=== PATIENT | male | born 1955 | race Caucasian/White ===

== ENCOUNTER 2022-06-11 13:31 | Emergency (ER) | payer MEDICARE, SELFPAY ==
[2022-06-11 13:37] VITALS: BP 163/83; PULSE 40; RESP 16; TEMP 36.4; O2SAT 94
--- NOTE | 2022-06-11 13:47 | W.ED.GENAD ---
Discharge Plan Disposition Patient Disposition: Home Discharge Details Clinical Impression: Acute exacerbation of chronic low back pain, Radiculopathy Primary Care Provider: Frankie Sheehan ED Provider: Toni Whittington Home Meds and New Rx's Prescriptions: New prednisone 20 mg tablet 40 mg PO DAILY Qty: 8 0RF Continued levothyroxine 25 MCG tablet 25 mcg PO DAILY@0730 Qty: 30 0RF Patient Comments: no longer taking medication 06/11/2022 CT folic acid 1 MG tablet 1 mg PO DAILY Qty: 30 0RF Patient Comments: No longer taking medication 06/11/2022 thiamine mononitrate (vit B1) [Vitamin B-1 (mononitrate)] 100 MG tablet 100 mg PO DAILY Qty: 30 0RF Patient Comments: no longer taking 06/11/2022 CT Discontinued aspirin 325 MG tablet 325 mg PO DAILY Qty: 30 0RF Patient Comments: No longer taking medication 06/11/2022 CT Discharge Instructions Instructions: Low Back Strain (ED) Additional Instructions: At this time CT imaging is negative for any acute fracture or worrisome findings. If there is degenerative changes noted. Due to the radiating pain down your leg we have placed you on a steroid and you may start that tomorrow. Otherwise you may use the provided narcotic medication along with [id number] meds as needed for further pain and discomfort. Please use narcotic for severe discomfort only. Be mindful of any operating vehicles, machinery, or any dangerous equipment. Please follow-up with your primary care provider if not improving in the next week. Referrals: Frankie Sheehan MD [Primary Care Provider] - 1 week (If not improving over the next week) Discharge Data Discharge Date/Time-TO BE ENTERED AT DEPARTURE: 06/11/22 16:09 Medical Decision Making Patient presenting to the emergency department for chief complaint of back pain. Patient states mechanical fall 2 weeks ago in which he aggravated back pain. He states history of chronic back pain with 2 lumbar surgeries in the past. He has been using [id number] acetaminophen and ibuprofen which does help slightly but pain is continuing to worsen. Patient denies any other injury or trauma. LOW risk for ABDOMINAL AORTIC ANEURYSM, CAUDA EQUINA SYNDROME, EPIDURAL MASS LESION, SPINAL STENOSIS, OR HERNIATED DISK CAUSING SEVERE STENOSIS. Physical exam does show tenderness to the left SI joint and lower lumbar bony prominences. We will plan on performing CT imaging to rule out acute fracture secondary to fall. In the meantime we will treat patient's pain with Orofino given that he just took ibuprofen prior to arrival. Reviewed CT imaging and radiologist interpretation which shows no acute fracture. There is degenerative changes of the left SI joint that is noted but again these do not appear acute. Patient given limited supply of Orofino and placed upon prednisone due to radiculopathy. Patient to follow-up with primary care provider if not improving over the next week. After discussion of diagnosis and plan of care patient has no further needs, questions, or concerns and states clear understanding to return to the emergency department for any worsening symptoms. This documentation was generated using [employer] dictation system, please disregard any oddities of phrase or misspellings. Imaging Data Radiologic Study: Attestation: I personally reviewed and interpreted this imaging study as follows: Imaging: CT Scan Radiologist's impression: Exam(s) CT LUMBAR SPINE SI JOINTS WO EXAM: CT LUMBAR SPINE SI JOINTS WO CLINICAL HISTORY: fall left si- joint pain. TECHNIQUE: Imaging Protocol: Axial computed tomography images with coronal and sagittal reformatted images were created and reviewed. COMPARISON: No exams were available for comparison FINDINGS: Bones: No fractures or dislocations are seen. Moderate degenerative changes are seen throughout the lumbar spine. There is moderate central spinal canal stenosis at L3-L4 and L2-L3. There is mild central spinal canal stenosis at L1-L2. There is marked bilateral neural foraminal stenosis at L5-S1 and L4-L5. There are degenerative changes seen at the sacroiliac joints but no widening, ankylosis or erosions are seen. Soft tissues: Atherosclerosis is present. IMPRESSION: 1. No acute fracture or dislocation is identified. 2. Findings were discussed with Toni Moreira Mode of arrival: ambulatory. Date/Time Provider Initiated Documentation: 06/11/22 13:37. Limitations to Documentation: no limitations. Information obtained by: patient, RN notes reviewed and old records reviewed. History of Present Illness 66 year old M presents to the emergency department with the chief complaint of Fall, left-sided back pain, described as moderate and similar to prior episodes, with intensity rated at 7. Quality is described as aching, and is localized to the back. Patient extremity. Patient started experiencing this week(s) (2) and it has been constant. Rest improves symptom(s), Movement worsens symptoms . Patient notes no other symptoms.. Patient did receive the following treatments prior to arrival, NSAID Related Data Home Medications Medication Instructions Recorded Confirmed folic acid 1 mg tablet 1 mg PO DAILY ##30 06/05/13 06/22/13 levothyroxine 25 mcg tablet 25 mcg PO DAILY@0730 ##30 06/05/13 06/22/13 thiamine mononitrate (vit B1) 100 100 mg PO DAILY ##30 06/05/13 06/22/13 mg tablet (Vitamin B-1 (mononitrate)) prednisone 20 mg tablet 40 mg PO DAILY #8 tabs 06/11/22 Previous Rx's Medication Instructions Recorded folic acid 1 mg tablet 1 mg PO DAILY ##30 06/05/13 levothyroxine 25 mcg tablet 25 mcg PO DAILY@0730 ##30 06/05/13 thiamine mononitrate (vit B1) 100 100 mg PO DAILY ##30 06/05/13 mg tablet (Vitamin B-1 (mononitrate)) prednisone 20 mg tablet 40 mg PO DAILY #8 tabs 06/11/22 Allergies Allergy/AdvReac Type Severity Reaction Status Date / Time No Known Allergies Allergy Unverified 06/22/13 11:31 General Stated Complaint: Nk/Back Pain MARCELLE: 4 Review of Systems Constitutional Constitutional: Denies chills and Denies fever(s) Cardiovascular Cardiovascular: Denies chest pain and Denies dyspnea on exertion Respiratory Respiratory: Denies cough and Denies dyspnea on exertion Gastrointestinal Gastrointestinal: Denies abdominal pain, Denies change in bowel habits, Denies diarrhea, Denies nausea and Denies vomiting Genitourinary Genitourinary: Denies difficulty urinating and Denies urinary incontinence Musculoskeletal Musculoskeletal: Reports as per HPI and Reports back pain Neurologic Neurologic: Denies sensory deficit PFSH All Active Problems (Updated 06/11/22 @ 15:26 by Toni Whittington NP) Chronic low back pain (Chronic) Sick sinus syndrome (Acute 06/13/13) Status post placement of cardiac pacemaker (Acute 06/14/13) Acute exacerbation of chronic low back pain (Acute) Radiculopathy (Acute) Social History Smoking/Tobacco Use Status: Former Tobacco Use Smoking risk assessment performed?: Yes Alcohol Intake: current Alcohol Intake frequency: a few times a week Alcohol type: beer Drug use: Never Substance use type: does not use Do you feel safe at home: Yes Do you feel safe in your relationship?: Yes Exam Const General: cooperative and no acute distress Orientation: alert, awake and oriented x3 Neck Neck: normal visual inspection, full ROM and no meningeal signs Resp Effort & Inspection: normal respiratory effort Auscultation: clear to auscultation bilaterally Cardio Rate: regular rate Rhythm: regular rhythm Heart Sounds: S1 normal and S2 normal GI Palpation: no hepatosplenomegaly, no aortic enlargement, no masses and no pulsatile masses Back/Spine/Pelvis Thoracic/Lumbar Spine: pain with thoraco-lumbar ROM, paraspinal tenderness, thoraco-lumbar ROM limited, No thoracic spinal tenderness and lumbar spinal tenderness Pelvis: no pain with anterior-posterior compression, no pain with lateral compression and buttock tenderness on the left Sacroiliac joints: on the left tender to palpation Neuro General: patient alert, patient awake and patient oriented x3 DTR's: Rt Patellar: 2+ and Lt Patellar: 2+ Course Vital Signs Vital signs: Vital Signs Temperature 36.4 C 06/11/22 13:37 Pulse 40 L 06/11/22 13:37 Respiratory Rate 16 06/11/22 13:37 Blood Pressure 163/83 H 06/11/22 13:37 Pulse Oximetry 94 06/11/22 13:37 Temperature 36.4 C 06/11/22 13:37 Temperature Source Oral 06/11/22 13:37 Pulse 40 L 06/11/22 13:37 Respiratory Rate 16 06/11/22 13:37 Respiratory Effort Normal 06/11/22 13:42 Blood Pressure 163/83 H 06/11/22 13:37 Blood Pressure Position Sitting 06/11/22 13:37 Pulse Oximetry 94 06/11/22 13:37 Oxygen Delivery Method Room Air 06/11/22 13:37 Oxygen Flow Rate 0 06/11/22 13:37 Pain Level 8 06/11/22 13:37 PAWSS Have you Been Recently Intoxicated or Drunk Within the Last 30 days?: No Have you Ever Experienced Previous Episodes of Alcohol Withdrawal?: No Have you ever Experienced Withdrawal Seizures?: No Have you ever Experienced Delirium Tremens(DT)s?: No Have you ever undergone Alcohol Rehabilitation Treatment (i.e, inpt ot outpatient treatment programs)?: No Have you ever Experienced Blackouts?: No Have you ever Combined Alcohol with other Downers within the last 90 days?: No Have you ever Combined Alcohol with any other Substance of Abuse during the last 90 days?: No Result: 0
[2022-06-11] MEDS: HYDROcodone 5/Acetaminophen 325 TAB PO (14:10)
--- NOTE | 2022-06-11 14:13 | NUR.NOTE ---
Nursing Note: Pt received Hydrocodone and Acetamonipohen 5 mg tablet PO at 1410, manual entry as computer with MAR scanner not equiped and multiple other mobile computers not recognizing badge; Leatha Noble RN verified dose and order.
--- NOTE | 2022-06-11 14:39 | DI.CT_ITS ---
Exam(s) CT LUMBAR SPINE SI JOINTS WO EXAM: CT LUMBAR SPINE SI JOINTS WO CLINICAL HISTORY: fall left si- joint pain. TECHNIQUE: Imaging Protocol: Axial computed tomography images with coronal and sagittal reformatted images were created and reviewed. COMPARISON: No exams were available for comparison FINDINGS: Bones: No fractures or dislocations are seen. Moderate degenerative changes are seen throughout the l umbar spine. There is moderate central spinal canal stenosis at L3-L4 and L2-L3. There is mild cent ral spinal canal stenosis at L1-L2. There is marked bilateral neural foraminal stenosis at L5-S1 and L4-L5. There are degenerative changes seen at the sacroiliac joints but no widening, ankylosis or ero sions are seen. Soft tissues: Atherosclerosis is present. IMPRESSION: 1. No acute fracture or dislocation is identified. 2. Findings were discussed with Toni Whittington at 3:22 p.m. on 06/11/2022. RADIATION DOSE DELIVERED: 1,223.18mGy.cm Total DLP 1,223.18mGy.cm Total DLP DATA REPOSITORY: All CT scans at this facility are submitted to the National Radiology Data Registry (NRDR) Dose Index Registry (DIR) with the [employer] ([employer]). RADIATION OPTIMIZATION: All CT scans at this facility use at least one of these dose optimization te chniques: automated exposure control; mA and/or kV adjustment per patient size (includes targeted exa ms where dose is matched to clinical indication); or iterative reconstruction.
[2022-06-11] MEDS: predniSONE 20 MG TAB 60 MG PO (15:47)
[2022-06-11 15:54] VITALS: BP 148/86; PULSE 62; RESP 16; TEMP 36.7; O2SAT 95
== END 2022-06-11 16:09 | disposition home or self-care (01) ==
PROVIDERS: Emergency Provider Nurse Practitioner Family; PCP Internal Medicine
DX: M54.59 Other low back pain (principal); M54.10 Radiculopathy, site unspecified
CPT/HCPCS: 99284; 72131; J7512

== ENCOUNTER 2022-06-29 10:12 | Emergency (ER) | payer MEDICARE, SELFPAY ==
[2022-06-29 10:22] VITALS: BP 143/96; PULSE 55; RESP 18; TEMP 36.1; O2SAT 96
--- NOTE | 2022-06-29 10:43 | W.ED.GENAD ---
Discharge Plan Disposition Patient Disposition: Home Discharge Details Clinical Impression: Acute exacerbation of chronic low back pain, Radiculopathy Primary Care Provider: Frankie Sheehan ED Provider: Toni Whittington Home Meds and New Rx's Prescriptions: Discontinued levothyroxine 25 MCG tablet 25 mcg PO DAILY@0730 Qty: 30 0RF Patient Comments: no longer taking medication 06/11/2022 CT folic acid 1 MG tablet 1 mg PO DAILY Qty: 30 0RF Patient Comments: No longer taking medication 06/11/2022 thiamine mononitrate (vit B1) [Vitamin B-1 (mononitrate)] 100 MG tablet 100 mg PO DAILY Qty: 30 0RF Patient Comments: no longer taking 06/11/2022 CT prednisone 20 mg tablet 40 mg PO DAILY Qty: 8 0RF Discharge Instructions Instructions: Back Pain (ED) Additional Instructions: You may continue to take [id number] acetaminophen as needed for pain but do not take more than 3000 mg in a 24-hour period. You have been given a limited supply of narcotics and please take as directed for severe pain. You have been given a steroid shot to also help with your discomfort. We have placed a urgent referral to your primary care provider for reassessment as I feel that there is high likelihood you will need an MRI to further diagnose your back pain. If you develop any new or significant worsening of symptoms feel free to return to the emergency department for reassessment and consideration of emergent MRI. Referrals: Frankie Sheehan MD [Primary Care Provider] - 5 days Medical Decision Making Patient presenting to the emergency department for chief complaint of back pain. Patient was seen by myself 2 weeks ago and given steroids and limited narcotic for similar presentation. Initial incident was a mechanical fall that worsened patient's back pain. Patient does have chronic back pain secondary to workplace injury that happened years ago with need of lumbar surgery. Patient denies any fever chills, bowel or bladder dysfunction, severe weakness to the lower extremities. He does state some worsening radiating pain down left leg. He did state that steroids did slightly help while he was on them but then once he stopped them pain returned. He has not followed up with his primary care provider. Physical exam is very similar to previous visit with lumbar tenderness along with left buttock and left L5 SI joint tenderness. CT imaging was performed at that time with no emergent findings noted. I do feel that patient would benefit from MRI imaging but none is available as patient is presenting to the ED on a weekend. Patient was emergently referred to primary care provider for reassessment and consideration of MRI imaging but patient also informed if not improving or has worsening symptoms he should return to the emergency department for MRI. He was instructed on hours of availability and unless emergent symptoms were present. I do not feel patient is suffering from cauda equina, severe stenosis, aortic aneurysm, or other emergent back pain at this time. Patient given IM Depo-Medrol and limited supply of narcotic to use for severe pain otherwise recommended to continue use acetaminophen at safe dosing levels for age. After discussion of diagnosis and plan of care patient has no further needs, questions, or concerns and states clear understanding to return to the emergency department for any worsening symptoms. This documentation was generated using [employer] system, please disregard any oddities of phrase or misspellings. HPI General Mode of arrival: ambulatory. Date/Time Provider Initiated Documentation: 06/29/22 10:13. Limitations to Documentation: no limitations. Information obtained by: patient, RN notes reviewed and old records reviewed. History of Present Illness 67 year old M presents to the emergency department with the chief complaint of back pain , described as moderate and severe, with intensity rated at 7. Quality is described as sharp, and is localized to the back. Patient extremity (left). Patient started experiencing this month(s) (1) and it has been constant. No relieving factors improve symptom(s), No exacerbating factors reported . Patient notes no other symptoms.. Patient did receive the following treatments prior to arrival, other (Acetaminophen) Related Data Allergies Allergy/AdvReac Type Severity Reaction Status Date / Time No Known Allergies Allergy Unverified 06/22/13 11:31 General Stated Complaint: Nk/Back Pain MARCELLE: 4 Review of Systems Constitutional Constitutional: Denies chills and Denies fever(s) Cardiovascular Cardiovascular: Denies chest pain and Denies dyspnea on exertion Respiratory Respiratory: Denies cough and Denies dyspnea on exertion Gastrointestinal Gastrointestinal: Denies abdominal pain, Denies change in bowel habits, Denies diarrhea, Denies nausea and Denies vomiting Genitourinary Genitourinary: Denies difficulty urinating and Denies urinary incontinence Musculoskeletal Musculoskeletal: Reports as per HPI and Reports back pain Neurologic Neurologic: Denies sensory deficit PFSH All Active Problems (Updated 06/29/22 @ 10:46 by Toni Whittington NP) Chronic low back pain (Chronic) Sick sinus syndrome (Acute 06/13/13) Status post placement of cardiac pacemaker (Acute 06/14/13) Acute exacerbation of chronic low back pain (Acute) Radiculopathy (Acute) Social History Smoking/Tobacco Use Status: Former Tobacco Use Smoking risk assessment performed?: Yes Alcohol Intake: current Alcohol Intake frequency: a few times a week Alcohol type: beer Drug use: Never Substance use type: does not use Do you feel safe at home: Yes Do you feel safe in your relationship?: Yes Exam Const General: cooperative and no acute distress Orientation: alert, awake and oriented x3 Neck Neck: normal visual inspection, full ROM and no meningeal signs Resp Effort & Inspection: normal respiratory effort Auscultation: clear to auscultation bilaterally Cardio Rate: regular rate Rhythm: regular rhythm Back/Spine/Pelvis Thoracic/Lumbar Spine: pain with thoraco-lumbar ROM, paraspinal tenderness, thoraco-lumbar ROM limited, No thoracic spinal tenderness and lumbar spinal tenderness Pelvis: buttock tenderness on the left Sacroiliac joints: on the left tender to palpation Neuro General: patient alert, patient awake and patient oriented x3 Motor: muscle tone normal throughout Sensory Exam: no sensory deficits noted DTR's: Rt Patellar: 2+ and Lt Patellar: 1+ Course Vital Signs Vital signs: Vital Signs Temperature 36.1 C L 06/29/22 10:22 Pulse 55 L 06/29/22 10:22 Respiratory Rate 18 06/29/22 10:22 Blood Pressure 143/96 H 06/29/22 10:22 Pulse Oximetry 96 06/29/22 10:22 Temperature 36.1 C L 06/29/22 10:22 Temperature Source Tympanic 06/29/22 10:22 Pulse 55 L 06/29/22 10:22 Respiratory Rate 18 06/29/22 10:22 Blood Pressure 143/96 H 06/29/22 10:22 Blood Pressure Position Sitting 06/29/22 10:22 Pulse Oximetry 96 06/29/22 10:22 Oxygen Delivery Method Room Air 06/29/22 10:22 Oxygen Flow Rate 0 06/29/22 10:22 Pain Level 7 06/29/22 10:22
[2022-06-29] MEDS: methylPREDNISolone ACETATE 80 MG/ML VIAL IM (10:54)
--- NOTE | 2022-06-29 10:57 | NUR.NOTE ---
Nursing Note: Referral faxed to PCP for reassessment of back pain, needs MRI/this week.
[2022-06-29 11:09] VITALS: BP 139/92; PULSE 55; RESP 18; TEMP 36.6; O2SAT 96
== END 2022-06-29 11:11 | disposition home or self-care (01) ==
PROVIDERS: Emergency Provider Nurse Practitioner Family; PCP Internal Medicine
DX: M54.50 Low back pain, unspecified (principal); G89.29 Other chronic pain; M54.10 Radiculopathy, site unspecified
CPT/HCPCS: 96372; 99284; J1040

== ENCOUNTER 2022-10-11 10:25 | Observation (INO) | payer MEDICARE, SELFPAY ==
[2022-10-11] VITALS (14 sets, daily range): BP systolic 126–164; BP diastolic 65–86; PULSE 44–62; RESP 16–18; TEMP 36.5; O2SAT 82–97
--- NOTE | 2022-10-11 11:48 | W.ED.GENAD ---
Discharge Plan Disposition Patient Disposition: Admit to [facility] Discharge Details Clinical Impression: Severe back pain, Radiculopathy due to lumbar intervertebral disc disorder Admit Date/Time: 10/11/22 13:59 Admit Provider: Rafiq Salmeron Attending Provider: Rafiq Salmeron Primary Care Provider: Frankie Sheehan ED Provider: Toni Whittington Discharge Data Discharge Date/Time-TO BE ENTERED AT DEPARTURE: 10/11/22 15:19 Medical Decision Making Patient presenting to the emergency department for chief complaint of back pain with left buttock pain and pain radiating down left leg. Patient states this is been going on for 2 weeks and he saw primary care provider yesterday that gave him some steroids that are not helping. Patient lives alone and states he is even having a hard time with his ADLs due to only being able to walk a couple steps. Patient does report that his left leg has been giving out but has not fallen. Patient denies any bowel or bladder changes, denies any severe muscle weakness just severe pain radiating down his left leg. Patient is familiar to myself as I have seen him the last 2 times that he has presented with similar presentation for severe back pain. Physical exam is unchanged from previous exam which shows decreased DTRs to the left extremity significant and severe left buttock and SI pain with mild to moderate tenderness to the lumbar spine. Patient denies any recent injury or trauma. Given the imaging was performed last time and showed moderate stenosis and degenerative changes with no change in symptoms reported by patient we will treat patient's pain and discomfort. Patient given 0.5 mg of hydromorphone and observed Reassessed patient and he did state improvement of pain and discomfort with laying but was unable to walk more than 1 step without severe pain or even sit on the side of the bed. We will attempt to try tramadol Robaxin and will give patient Depo-Medrol with hope to ambulate patient and discharge patient with close primary care follow-up and MRI imaging. Again I do not feel this is cauda equina, spinal epidural abscess, or emergent life-threatening severe spinal stenosis. In reassessed patient he did have some improvement of pain but again cannot walk more than 2 steps without severe pain and sensation that his leg may give out. I am concerned for patient being able to perform ADLs at home given that he lives alone and is having severe symptoms. Will discuss case with hospitalist for admission for pain control for irretractable back pain and need of PT and MRI when available given that it is a weekend. Medical Records Medical records reviewed: Yes I reviewed the patient's medical records. Medical records narrative: Moderate degenerative changes are seen throughout the lumbar spine. There is moderate central spinal canal stenosis at L3-L4 and L2-L3. There is mild central spinal canal stenosis at L1-L2. There is marked bilateral neural foraminal stenosis at L5-S1 and L4-L5. There are degenerative changes seen at the sacroiliac joints but no widening, ankylosis or erosions are seen. Soft tissues: Atherosclerosis is present. HPI General Mode of arrival: wheelchair. Date/Time Provider Initiated Documentation: 10/11/22 10:54. Limitations to Documentation: no limitations. Information obtained by: patient and RN notes reviewed. History of Present Illness 67 year old M presents to the emergency department with the chief complaint of Left buttock pain radiating down leg, described as moderate, severe and similar to prior episodes, Quality is described as sharp, and is localized to the back, buttocks and left. Patient extremity. Patient started experiencing this week(s) (2) and it has been constant. Immobilization improves symptom(s), Movement worsens symptoms . Patient notes no other symptoms.. Patient did receive the following treatments prior to arrival, other (Acetaminophen and prescribed steroids) Related Data Home Medications Medication Instructions Recorded Confirmed Unknown [No Known Home Meds] 10/11/22 10/11/22 Allergies Allergy/AdvReac Type Severity Reaction Status Date / Time No Known Allergies Allergy Unverified 10/11/22 10:37 General Stated Complaint: Nk/Back Pain MARCELLE: 3 Review of Systems Constitutional Constitutional: Denies chills and Denies fever(s) Cardiovascular Cardiovascular: Denies chest pain and Denies dyspnea on exertion Respiratory Respiratory: Denies cough and Denies dyspnea on exertion Gastrointestinal Gastrointestinal: Denies abdominal pain, Denies change in bowel habits, Denies diarrhea, Denies nausea and Denies vomiting Genitourinary Genitourinary: Denies difficulty urinating and Denies urinary incontinence Musculoskeletal Musculoskeletal: Reports as per HPI and Reports back pain Neurologic Neurologic: Denies sensory deficit PFSH All Active Problems (Updated 10/11/22 @ 16:00 by Sidra Alonso NP) Discharge planning issues (Acute) Acute exacerbation of chronic low back pain (Acute) Chronic low back pain (Chronic) Sick sinus syndrome (Acute 06/13/13) Status post placement of cardiac pacemaker (Acute 06/14/13) Severe back pain (Acute) Radiculopathy due to lumbar intervertebral disc disorder (Acute) Social History Smoking/Tobacco Use Status: Former Tobacco Use Smoking risk assessment performed?: Yes Alcohol Intake: former Drug use: Never Substance use type: does not use Housing: house Do you feel safe at home: Yes Do you feel safe in your relationship?: Yes Exam Const General: cooperative and no acute distress Nutritional Appearance: obese Orientation: alert, awake and oriented x3 Neck Neck: normal visual inspection, full ROM and no meningeal signs Resp Effort & Inspection: normal respiratory effort Auscultation: clear to auscultation bilaterally Cardio Rate: regular rate Rhythm: regular rhythm Back/Spine/Pelvis Thoracic/Lumbar Spine: pain with thoraco-lumbar ROM, paraspinal tenderness, thoraco-lumbar ROM limited, No thoracic spinal tenderness and lumbar spinal tenderness Pelvis: buttock tenderness on the left Sacroiliac joints: on the left tender to palpation Neuro General: patient alert, patient awake and patient oriented x3 Motor: muscle tone normal throughout Sensory Exam: no sensory deficits noted DTR's: Rt Patellar: 2+ and Lt Patellar: 1+ Course Vital Signs Vital signs: Vital Signs Pulse 58 L 10/11/22 10:32 Respiratory Rate 18 10/11/22 10:32 Blood Pressure 127/79 10/11/22 10:32 Pulse Oximetry 95 10/11/22 10:32 Pulse 58 L 10/11/22 10:32 Respiratory Rate 18 10/11/22 10:32 Respiratory Effort Normal 10/11/22 10:38 Blood Pressure 127/79 10/11/22 10:32 Blood Pressure Position Supine 10/11/22 10:32 Pulse Oximetry 95 10/11/22 10:32 Oxygen Delivery Method Room Air 10/11/22 10:32 Oxygen Flow Rate 0 10/11/22 10:32 Pain Level 8 10/11/22 11:10
[2022-10-11] MEDS: HYDROmorphone 2 MG/ML SYR 0.5 MG IVP (11:51)
[2022-10-11] MEDS: Methocarbamol 500 MG TAB PO (12:34)
[2022-10-11] MEDS: traMADol 50 MG TAB PO (12:34)
[2022-10-11] MEDS: methylPREDNISolone ACETATE 80 MG/ML VIAL IM (13:15)
[2022-10-11 14:27] LABS: Abs Immature Grans 0.05 10^3/uL (0.0-0.06); Absolute Basophil Count 0.05 10^3/uL (0.0-0.2); Absolute Lymphocyte Count 1.29 10^3/uL (1.2-3.4); Absolute Monocyte Count 0.46 10^3/uL (0.1-0.8); Absolute Neutrophil Count 10.79 10^3/uL (1.2-6.7); Basophils % 0.4; HCT 48.2 % (40.0-50.0); HGB 16.2 g/dL (13.5-17.5); Immature Grans % 0.4; Lymphocytes % 10.2; MCH 33.3 pg (27.0-33.0); MCHC 33.6 % (32.0-36.0); MCV 99 fL (80-95); MPV 10.8 fL (8.0-11.0); Monocytes % 3.6; Neutrophils % 85.4; Platelet Count 224 10^3/uL (130-400); RBC 4.86 10^6/uL (4.36-5.78); RDW 12.2 % (11.8-14.1); WBC 12.64 10^3/uL (4.4-10.8)
[2022-10-11 14:46] LABS: ALT 25 U/L (16-63); AST 16 U/L (15-37); Albumin 3.8 g/dL (3.4-5.0); Alkaline Phosphatase 79 U/L (46-116); Anion Gap 5.1 mmol/L (3-11); BUN 26 mg/dL (7-18); Bilirubin, Total 0.4 mg/dL (0.2-1.0); CO2 28.9 mmol/L (21.0-32.0); CREATININE 1.2 mg/dL (0.70-1.30); Calcium 8.9 mg/dL (8.5-10.1); Chloride 105 mmol/L (98-107); Estimated GFR 65.46 (mL/min/1.73m2); Glucose 139 mg/dL (74-106); Potassium 4.4 mmol/L (3.5-5.1); Sodium 139 mmol/L (136-145); Total Protein 7.2 g/dL (6.4-8.2)
--- NOTE | 2022-10-11 15:24 | NUR.NOTE ---
Nursing Note: Multiple attempts at ambulation failed in ED. Pt refused due to pain to standup and bear weight. This nurse was able to get pt to stand only breifly before pain caused pt to get back in bed. On admission to floor, Pt walked comfortably to bathroom and to bed.
--- NOTE | 2022-10-11 15:36 | HPE_ITS ---
Date of service: 10/11/22 Time of Service: 15:37 Assessment and Plan Assessment and plan (1) Acute exacerbation of chronic low back pain: Status: Acute Assessment and plan: placed on high dose steroids in the ED. will continue with a burst continue scheduled apap, toradol, lidocaine patches can use heat or ice. no signs of cord compression syndrome PT evaluation and recommendations (2) Status post placement of cardiac pacemaker: Status: Acute Assessment and plan: bradycardic with no symptoms. (3) Discharge planning issues: Status: Acute Assessment and plan: CODE STATUS discussed and patient without hesitation states he does not want to be resuscitated under any circumstances DVT prophylaxis deferred at this time as he is not bedbound and admitted observation overnight for pain management. Will readdress if discharge is delayed Anticipated discharge to home with no services tomorrow if he remains with controlled pain discussed with DR Salmeron History of Present Illness History of Present Illness Chief Complaint: low back pain Narrative: This is a 67-year-old male patient with longstanding history of low back pain who states he had an injury many years ago and has had back surgeries but was doing okay up until about a year ago when he had a fall and has had bouts of uncontrolled pain intermittently since. He states 2 weeks ago was his latest bout of uncontrolled pain and he attributes it to getting in and out of a vehic le that is low to the ground. 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 He states he has been using acetaminophen and ibuprofen without any improvement in his symptoms so presents here for evaluation. Review of Systems All systems reviewed & are unremarkable except as noted in HPI and below Gastrointestinal Gastrointestinal: Denies diarrhea Comments: reports occasional constipation Genitourinary Genitourinary: Denies urinary frequency, Denies urinary incontinence and Denies urinary urgency Musculoskeletal Musculoskeletal: Reports abnormal gait, Reports back pain and Reports radiating pain into limb (left) Comments: no bowel or bladder incontinence, no saddle anesthesia. Neurologic Neurologic: Reports abnormal gait PFSH All Active Problems (Updated 10/11/22 @ 16:00 by Sidra Alonso NP) Discharge planning issues (Acute) Acute exacerbation of chronic low back pain (Acute) Chronic low back pain (Chronic) Sick sinus syndrome (Acute 06/13/13) Status post placement of cardiac pacemaker (Acute 06/14/13) Severe back pain (Acute) Radiculopathy due to lumbar intervertebral disc disorder (Acute) Social History Smoking/Tobacco Use Status: Former Tobacco Use Smoking risk assessment performed?: Yes Alcohol Intake: former Drug use: Never Substance use type: does not use Housing: house Do you feel safe at home: Yes Do you feel safe in your relationship?: Yes Meds Allergies and Home Medications Allergies Allergy/AdvReac Type Severity Reaction Status Date / Time No Known Allergies Allergy Unverified 10/11/22 10:37 Home Medications Medication Instructions Recorded Confirmed Type Unknown [No Known Home Meds] 10/11/22 10/11/22 History Exam Const General: cooperative Nutritional Appearance: obese Orientation: alert, awake and oriented x3 HENMT Head: normal to inspection, normocephalic and atraumatic Mouth: oral mucosae normal Neck Neck: normal visual inspection and full ROM Chest Chest: normal inspection of the chest Resp Effort & Inspection: normal respiratory effort Cardio Rate: bradycardic GI Inspection: large pannus Palpation: soft Back/Spine/Pelvis Cervical Spine: normal cervical lordosis Thoracic/Lumbar Spine: thoracic and lumbar spine normal to inspection Results Labs 10/11/22 14:00 10/11/22 14:00 Labs: Laboratory Results - last 24 hr 10/11/22 10/11/22 14:00 14:00 WBC 12.64 H RBC 4.86 Hgb 16.2 Hct 48.2 MCV 99 H MCH 33.3 H MCHC 33.6 RDW 12.2 Plt Count 224 MPV 10.8 Immature Gran % 0.4 Neutrophils % 85.4 Lymphocytes % 10.2 Monocytes % 3.6 Eosinophils % 0.0 Basophils % 0.4 Nucleated RBC % 0.0 Absolute Neutrophils 10.79 H Absolute Lymphocytes 1.29 Absolute Monocytes 0.46 Absolute Eosinophils 0.00 Absolute Basophils 0.05 Sodium 139 Potassium 4.4 Chloride 105 Carbon Dioxide 28.9 Anion Gap 5.1 BUN 26 H Creatinine 1.2 Est GFR (CKD-EPI 2020) 65.46 Glucose 139 H Calcium 8.9 Total Bilirubin 0.4 AST 16 ALT 25 Alkaline Phosphatase 79 Total Protein 7.2 Albumin 3.8 Last Vital Signs Pulse 48 L 10/11/22 15:01 Resp 18 10/11/22 10:32 BP 139/73 10/11/22 15:01 Pulse Ox 92 10/11/22 15:01 Time Spent Time spent with Patient: 40-54 minutes Time was spent: preparing to see the patient(eg.review tests), obtaining and/or reviewing separately otained hiistory, ordering medications,tests, procedures, indepentently interpreting results and counseling the patient
[2022-10-11] MEDS: Normal Saline 1,000 ML 100 ML IV (17:42)
[2022-10-11] MEDS: Normal Saline Flush 10 ML SYR IVP (17:44)
[2022-10-11] MEDS: Droperidol 5 MG/2 ML VIAL 1.25 MG IVP (18:23)
[2022-10-11] MEDS: Lidocaine 5% Patch 2 PATCH TP (18:24)
[2022-10-11] MEDS: Cyclobenzaprine 10 MG TAB PO (19:17)
[2022-10-11] MEDS: Acetaminophen 325 MG TAB 650 MG PO (19:17)
[2022-10-12 00:58] VITALS: BP 158/109; PULSE 107; RESP 16; TEMP 36.5; O2SAT 96
[2022-10-12 06:00] VITALS: BP 158/72; PULSE 54; RESP 16; TEMP 36.5; O2SAT 93
[2022-10-12] MEDS: predniSONE 20 MG TAB 40 MG PO (08:20)
[2022-10-12] MEDS: Acetaminophen 325 MG TAB 650 MG PO ×4 (08:20→19:49)
[2022-10-12] MEDS: Cyclobenzaprine 10 MG TAB PO ×3 (08:20→19:49)
--- NOTE | 2022-10-12 09:42 | PDOC.CMIN ---
Date of service: 10/12/22 Time of Service: 09:43 Care Management Initial Assmt Initial Assessment REASON FOR HOSPITALIZATION:: back pain PREVIOUS FUNCTIONAL STATUS/SOCIAL/FAMILY SUPPORTS:: Leander, who goes by Pj, lives alone in a single family home in [place] with his dog. 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 Pj does not have any children and does not receive any community services. he is independent at [employer] and drives about 200 miles per day with his work. CURRENT FUNCTIONAL STATUS:: Pj was sitting up in bed when CM met with him. He was polite but not very talkative. Pj shared that he had first injured his back while working at [employer] about 15-20 years ago and has had several surgeries. His stated that his back pain comes and goes in intensity. A PT consult was ordered yesterday but has not been completed yet. Pj denied the need for any services at this time. ADVANCE DIRECTIVES:: none on file Has patient been provided with info about the portal/API?: No Did the patient sign up for the portal?: No CODE STATUS:: DNR INSURANCE COVERAGE / FINANCIAL ISSUES:: [employer] [facility] Medicare Replacement Plan CURRENT HOME/COMMUNITY SERVICES/EQUIPMENT:: none PRIMARY CARE PHYSICIAN:: Frankie Sheehan POTENTIAL DISCHARGE NEEDS:: follow up with community providers PATIENT/FAMILY EDUCATION NEEDS:: Review of discharge instructions, activity, limitations, follow up plan, discuss [employer] TRANSPORTATION:: via private vehicle PLAN:: Anticipate Leander will be discharged home with no new services. He will follow up with his community providers and plan of care and transport with family/friends. CM will follow and support discharge needs. PFSH All Active Problems (Updated 10/11/22 @ 16:00 by Sidra Alonso NP) Discharge planning issues (Acute) Acute exacerbation of chronic low back pain (Acute) Chronic low back pain (Chronic) Sick sinus syndrome (Acute 06/13/13) Status post placement of cardiac pacemaker (Acute 06/14/13) Severe back pain (Acute) Radiculopathy due to lumbar intervertebral disc disorder (Acute) Social History Smoking/Tobacco Use Status: Former Tobacco Use Smoking risk assessment performed?: Yes Alcohol Intake: former Drug use: Never Substance use type: does not use Housing: house Do you feel safe at home: Yes Do you feel safe in your relationship?: Yes
[2022-10-12 11:16] VITALS: BP 127/78; PULSE 54; RESP 16; TEMP 36.5; O2SAT 94
[2022-10-12 14:48] VITALS: BP 110/61; PULSE 58; RESP 16; TEMP 36.5; O2SAT 92
--- NOTE | 2022-10-12 16:46 | W.PM.PROGNOT ---
Date of Service Date of service: 10/12/22 Time of Service: 16:46 Assessment and Plan Assessment and plan (1) Acute exacerbation of chronic low back pain: Status: Acute Assessment and plan: continue steroid burst continue scheduled apap, toradol, lidocaine patches can use heat or ice. no signs of cord compression syndrome PT evaluation and recommendations (2) Status post placement of cardiac pacemaker: Status: Acute Assessment and plan: bradycardic with no symptoms. (3) Discharge planning issues: Status: Acute Assessment and plan: CODE STATUS discussed and patient without hesitation states he does not want to be resuscitated under any circumstances DVT prophylaxis deferred at this time as he is not bedbound and admitted observation overnight for pain management. Will readdress if discharge is delayed Anticipated discharge to home with no services tomorrow if he remains with controlled pain discussed with DR Salmeron Subjective Subjective Patient reports: no new complaints, pain is less, tolerating liquids well, tolerating a regular diet, voiding w/o difficulty and afebrile; denies shortness of breath Exam Const General: cooperative Nutritional Appearance: obese Orientation: alert, awake and oriented x3 HENMT Head: normal to inspection, normocephalic and atraumatic Mouth: oral mucosae normal Neck Neck: normal visual inspection and full ROM Chest Chest: normal inspection of the chest Resp Effort & Inspection: normal respiratory effort Cardio Rate: bradycardic GI Inspection: large pannus Palpation: soft Back/Spine/Pelvis Cervical Spine: normal cervical lordosis Thoracic/Lumbar Spine: thoracic and lumbar spine normal to inspection Objective Last Vital Signs Temp 36.5 C 10/12/22 14:48 Pulse 58 L 10/12/22 14:48 Resp 16 10/12/22 14:48 BP 110/61 10/12/22 14:48 Pulse Ox 92 10/12/22 14:48 Time Spent with Patient Time Spent with Patient: <25 minutes Time was spent: preparing to see the patient(eg.review tests), obtaining and/or reviewing separately otained hiistory and counseling the patient
[2022-10-12 19:52] VITALS: BP 113/67; PULSE 57; RESP 20; TEMP 36.8; O2SAT 91
[2022-10-12 23:15] VITALS: BP 116/67; PULSE 90; RESP 16; TEMP 36.3; O2SAT 90
[2022-10-13 07:20] VITALS: BP 150/102; PULSE 68; RESP 17; TEMP 36.9; O2SAT 95
[2022-10-13] MEDS: predniSONE 20 MG TAB 40 MG PO (07:58)
[2022-10-13] MEDS: Acetaminophen 325 MG TAB 650 MG PO ×2 (07:58→12:22)
[2022-10-13] MEDS: Cyclobenzaprine 10 MG TAB PO ×2 (07:58→13:03)
[2022-10-13 08:00] VITALS: BP 158/96
--- NOTE | 2022-10-13 09:50 | IN_ITS ---
PT Notes Visit Reasons: Acute Exacerbation of Low Back Pain Physical Therapy Inpatient Initial Evaluation Date: 10/14/2022 Referring Doctor: Sidra Alonso NP PT Orders: PT CONSULT: Eval/Treat Precautions: Fall. Standard. Activity as tolerated. Patient Profile/Admitting Diagnosis: Leander is a 67-year-old male who presented to the ED on 10/11/2022 due to report of left buttock pain radiating to his left leg since he fell 2 weeks ago. Patient is admitted for management of acute exacerbation of chronic low back pain and s/p placement of cardiac pacemaker. PMHX: All Active Problems?(Updated 10/11/22 @ 16:00 by Sidra Alonso NP) Discharge planning issues (Acute) Acute exacerbation of chronic low back pain (Acute) Chronic low back pain (Chronic) Sick sinus syndrome (Acute 06/13/13) Status post placement of cardiac pacemaker (Acute 06/14/13) Severe back pain (Acute) Radiculopathy due to lumbar intervertebral disc disorder (Acute) Social History/Home Situation: Lives alone in a private home with 3 steps to enter. 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 Equipment Owned/DME: None Subjective: Feels much more comfortable and less hurting in the back with use of front wheeled walker. Ready to go home as soon as he is released by hospitalist. Reports no radiation of pain to either lower extremity. Objective: General Observation: Seated on bedside chair. No lines. Mental Status: Alert and oriented as to person, place, time, and purpose. Able to pay attention, focus, and respond appropriately. Pain: 3/10 in low back Vital Signs: Closely monitored by nursing staff ROM: Trunk ROM: WFL Right Upper Extremity: Shoulder Flexion WFL. Shoulder abduction WFL. Elbow flexion WFL. Wrist flexion WFL. Functional opening and closing of hand WFL. Left Upper Extremity: Shoulder Flexion WFL. Shoulder abduction WFL. Elbow flexion WFL. Wrist flexion WFL. Functional opening and closing of hand WFL. Right Lower Extremity: Hip flexion WFL. Hip abduction WFL. Knee flexion WFL. Ankle dorsiflexion WFL. Ankle plantarflexion WFL. Left Lower Extremity: Hip flexion WFL. Hip abduction WFL. Knee flexion WFL. Ankle dorsiflexion WFL. Ankle plantarflexion WFL. Strength: Trunk strength: Flexors 4-/5. Extensors 4-/5. Lateral flexors 4-/5. Rotators 4-/5. Right Upper Extremity: Shoulder flexors 4/5. Shoulder abductors 4/5. Elbow flexors 5/5. Elbow extensors 5/5. 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 Left Upper Extremity: Shoulder flexors 4/5. Shoulder abductors 4/5. Elbow flexors 5/5. Elbow extensors 5/5. 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 Right Lower Extremity: Hip flexors 4/5. Hip abductors 4/5. Knee flexors 5/5. Knee extensors 5/5. Ankle dorsiflexors 4/5. Ankle plantarflexors 4/5. Left Lower Extremity: Hip flexors 4/5. Hip abductors 4/5. Knee flexors 5/5. Knee extensors 5/5. Ankle dorsiflexors 4/5. Ankle plantarflexors 4/5. Bed Mobility/Transfers: Rolling independent Supine to sit independent Sit to supine independent Sit to stand independent with FWW Stand to sit independent with FWW Bed to reclining chair independent with FWW Reclining chair to bed independent with FWW Gait: Instructed patient with level surface ambulation of 600 feet independently with FWW. Sima decreased. Low back pain report of 3-4/1, No radiation either LE. Stairs: Ascended and descended 6 x 4 inch steps and 4 x 6 inch steps without holding onto rails with step over step pattern with report of 3?4/10 pain in the low back area. Balance: Static Sitting: Normal Dynamic Sitting: Normal Static Standing: Good Dynamic Standing: Fair Special Tests: Mobility Limitations Standardized Measure [facility] AM-PAC 6 clicks Basic Mobility Inpatient Short Form: Raw Score: 24 CMS Score: 0% deficit Informed Consent/Education: Patient was instructed in purpose of PT consult and plan of care. Agreeable to proceed with established PT POC to achieve personal goals. MARCO A EX: Access Code: [email or web address] URL: [email or web address] Date: 10/13/2022 Prepared by: Hina Kearns Exercises - Heel Raises with Counter Support - 1 x daily - 7 x weekly - 1 sets - 10 reps - 5 hold - Standing Hip Abduction with Counter Support - 1 x daily - 7 x weekly - 1 sets - 10 reps - 5 hold - Standing Hip Extension with Counter Support - 1 x daily - 7 x weekly - 1 sets - 10 reps - 5 hold Assessment: Patient has effective offloading of low back area with use of front wheeled walker for all mobility ADL performance. Patient has been provided with written exercises that he can safely do until he sees outpatient PT. He has also been provided with front wheeled walker that he can use in the community to safely perform his ADLs. Patient is assessed as a 20981 low complexity based on the following: History: 67-year-old male with past medical history as indicated above Examination: Patient is independent with all mobility ADL performance using front-wheeled walker with back pain effectively managed using AD Presentation: Stable Decision Makin low complexity Goals: N/A. PT evaluation only. Plan of Care/Treatment Plan: N/A. PT evaluation only. DISCHARGE RECOMMENDATIONS: [] Home with no services [] [] Home with services [specify] [X] Home with outpatient PT. Recommend outpatient PT services for continued rehab of low back pain and functional mobility progression to independent without use of any assistive device to allow for safe return to PLOF and to vocational activities. SNF for continued rehabilitation [] [] [facility] [] [] SNF versus LTC based on ability to participate and progress [] TREATMENT CODE/TIME: 61278 x 22 minutes beginning at 9:32 AM. Thank you for the opportunity to participate in the care of this patient. Hina Kearns PT, DPT, CLT [facility] [place], [place]
--- NOTE | 2022-10-13 09:51 | W.PM.DS.N ---
Date of service: 10/13/22 Time of Service: 09:51 DS: Diagnosis Discharge Diagnosis (1) Acute exacerbation of chronic low back pain: Status: Acute (2) Status post placement of cardiac pacemaker: Status: Acute Discharge Plan Disposition Patient Disposition: Home Condition: Improving Discharge Details Reason For Visit: Acute Exacerbation of Low Back Pain Admit Date/Time: 10/11/22 13:59 Admit Provider: Rafiq Horne Attending Provider: Rafiq Horne Primary Care Provider: Frankie Sheehan Hospital Course Hospital Course: This is a 67-year-old male patient with longstanding history of low back pain who states he had an injury many years ago and has had back surgeries but was doing okay up until about a year ago when he had a fall and has had bouts of uncontrolled pain intermittently since.? He states 2 weeks ago was his latest bout of uncontrolled pain and he attributes it to getting in and out of a vehicle that is low to the ground.? 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 He states he has been using acetaminophen and ibuprofen without any improvement in his symptoms so presents here for evaluation. He had no signs of cord compression/cauda equina. He was admitted to the hospitalist services for pain management and PT evaluation. He was safely reambulated with pain managed. bowels and bladder functioning well. PT evaluation completed and deemed safe for discharge to home with no services, outpatient PT referrals sent. He will complete a steroid burst, which was effective during his last exacerbation. He should continue ibuprofen and apap as directed. I also supplied a 10 day supply of flexeril. He should follow up outpatient with spine clinic if symptoms do not continue to improve. discussed with Dr Horne. Home Meds and New Rx's Prescriptions: New acetaminophen 325 mg Tablet 650 mg PO QID Qty: 0 0RF cyclobenzaprine 10 mg Tablet 10 mg PO TID PRN (Reason: Back Pain) Qty: 30 0RF prednisone 20 mg Tablet 40 mg PO DAILY Qty: 8 0RF ibuprofen 600 mg tablet 600 mg PO Q6H PRNQty: 60 0RF Rx Instructions: take with food Discharge Instructions Instructions: Back Pain (ED), Core Strengthening Exercises (DC) Stand Alone Forms: Nursing Discharge Form Referrals: Chanelle Villa [ NON-[facility] STAFF PHYSICIAN] - 10/30/22 10:00 am Marck Montiel, PT [PHYSICAL THERAPIST] - 10/17/22 12:00 pm (outpatient) Activity:: no bending twisting lifti Equipment/Supplies:: No Equipment Needed Diet:: As Tolerated Discharge Orders Discharge Orders: Discharge Order (Routine); Ordered 10/13/22 Ordered By: Sidra Alonso Discharge Data Discharge Date/Time-TO BE ENTERED AT DEPARTURE: 10/13/22 13:27 DS: Summary Time Spent with Patient providing and/or coordinating discharge services: Less than 30 minutes Status at Discharge Functional status at discharge: uses cane/walker Overall status at discharge: patient is progressing back to baseline Mental Status: mental status grossly normal Speech and Movement: speech and movement normal Mood: congruent mood Affect: normal affect Exam Const General: cooperative Nutritional Appearance: obese Orientation: alert, awake and oriented x3 HENMT Head: normal to inspection, normocephalic and atraumatic Mouth: oral mucosae normal Neck Neck: normal visual inspection and full ROM Chest Chest: normal inspection of the chest Resp Effort & Inspection: normal respiratory effort Cardio Rate: bradycardic GI Inspection: large pannus Palpation: soft Back/Spine/Pelvis Cervical Spine: normal cervical lordosis Thoracic/Lumbar Spine: thoracic and lumbar spine normal to inspection Psych Mental Status: mental status grossly normal Speech and Movement: speech and movement normal Mood: congruent mood Affect: normal affect DS: Data Vitals/I&O Vitals and I&O: Vital Signs Temperature 36.9 C 10/13/22 07:20 Temperature Source Tympanic 10/13/22 07:20 Pulse 68 10/13/22 07:20 Pulse Rhythm Regular 10/13/22 08:00 Respiratory Rate 17 10/13/22 07:20 Respiratory Effort Normal, Non-Labored 10/13/22 08:00 Respiratory Depth Normal 10/13/22 08:00 Respiratory Pattern Normal 10/13/22 08:00 Blood Pressure 150/102 H 10/13/22 07:20 Blood Pressure Mean 90 10/11/22 15:01 Blood Pressure Position Supine 10/11/22 10:32 Pulse Oximetry 95 10/13/22 07:20 Oxygen Delivery Method Room Air 10/13/22 07:20 Oxygen Flow Rate 0 10/13/22 07:20 Pain Level 3 10/13/22 08:00 Comment RN Notified 10/12/22 00:58 Intake & Output 0710/12/22 10/13/22 11:59 23:59 11:59 Intake Total 1310 / 1310 Output Total 275 / 275 Balance 1035 / 1035 Weight 118.026 kg 112.4 kg Intake: IV 1010 / 1010 Oral 300 / 300 Output: Urine 275 / 275 Other: Urine Color Yellow Urine Appearance Clear Clear Clear Sediment Sediment Urine Odor Normal Comment voided independently pT staed he was up to bathroom to void about one hour ago Voiding Methods Toilet PFSH All Active Problems (Updated 10/11/22 @ 16:00 by Sidra Alonso NP) Discharge planning issues (Acute) Acute exacerbation of chronic low back pain (Acute) Chronic low back pain (Chronic) Sick sinus syndrome (Acute 06/13/13) Status post placement of cardiac pacemaker (Acute 06/14/13) Severe back pain (Acute) Radiculopathy due to lumbar intervertebral disc disorder (Acute) Social History Smoking/Tobacco Use Status: Former Tobacco Use Smoking risk assessment performed?: Yes Alcohol Intake: former Drug use: Never Substance use type: does not use Housing: house Do you feel safe at home: Yes Do you feel safe in your relationship?: Yes Time Spent with Patient Time Spent with Patient: <45 minutes Time was spent: preparing to see the patient(eg.review tests), obtaining and/or reviewing separately otained hiistory, ordering medications,tests, procedures, referring, communicating with other health healthcare facility administrator and counseling the patient
--- NOTE | 2022-10-13 16:51 | CMDISCH_ITS ---
Date of service: 10/13/22 Time of Service: 16:51 LACE Index Scoring Tool Questions: Length of Stay (in days): 2 E.D. Visits: 2 Care Management Discharge Plan Reason for Hospitalization: back pain Discharge Plan: Leander will be discharged home with no new services. He will follow up with his community providers and plan of care and transport with josi maria m/friends. Patient/Family Education Needs: Review of discharge instructions, activity, limitations, follow up plan, discuss Ask Me Three
== END 2022-10-13 13:27 | disposition home or self-care (01) ==
LOC: ER 14:46 → MS 16:08
PROVIDERS: Admitting Provider Internal Medicine; Emergency Provider Nurse Practitioner Family; PCP Internal Medicine; Visit Provider Internal Medicine
DX: M51.16 Intervertebral disc disorders with radiculopathy, lumbar region (principal); G89.29 Other chronic pain; Z95.0 Presence of cardiac pacemaker; Z66 Do not resuscitate; Z87.891 Personal history of nicotine dependence; I49.5 Sick sinus syndrome
CPT/HCPCS: 80053; 96372; 96374; 97161; 99285; 85025; 99222; 99232; 99238; G0378; J1040; J1170; J1790; J7512

== ENCOUNTER 2022-10-19 11:05 | Emergency (ER) | payer MEDICARE, SELFPAY ==
[2022-10-19] VITALS (8 sets, daily range): BP systolic 119–143; BP diastolic 54–63; PULSE 40–89; RESP 11–25; TEMP 36.8; O2SAT 93–99
--- NOTE | 2022-10-19 11:00 | RT.EKG_ITS ---
APPROVED REPORT Exam: Resting ECG Reason for Exam: chest pressure Patient Location: E HR:86 bpm ECG Measurements Heart Rate 86 AXIS MI 202 P 46 QRSd 116 QRS -58 QT 387 T 90 QTc 463 Conclusion Sinus rhythm...normal P axis, V-rate 60- 99 Ventricular bigeminy...bigeminy string>4 w/ V complexes Left anterior fascicular block...axis(240,-40), init forces inf Left ventricular hypertrophy...multiple voltage criteria
--- NOTE | 2022-10-19 11:30 | DI.RAD_ITS ---
Exam(s) XR PORTABLE CHEST AP EXAM: XR PORTABLE CHEST AP CLINICAL HISTORY: chest pain TECHNIQUE: 2D digital imaging was performed of the chest. One image was obtained. An AP view was ob tained. COMPARISON: CR CHEST 2 VIEWS PA,LAT from 06/22/2013 FINDINGS: There is poor inspiration. MEDIASTINUM: Normal. HEART: Normal. There is a transvenous pacemaker in place. PULMONARY VASCULATURE: Normal. LUNGS: Mild increase interstitial markings are seen in the lung bases. This may be due to hypoventil ation. PLEURAL SPACE: No pleural effusion or pneumothorax. BONE:Within normal limits for the patient's age. OTHER FINDINGS:Normal. IMPRESSION: Increased interstitial markings in the lung bases. This may be due to poor inspiration. Pneumonia, atelectasis or edema cannot be entirely excluded. Please correlate clinically. DATA REPOSITORY: RADIATION DOSE DELIVERED:
--- NOTE | 2022-10-19 11:41 | ED.GENADUL_ITS ---
Discharge Plan Disposition Patient Disposition: Against Medical Advice Condition: Stable Discharge Details Clinical Impression: Chest pain Primary Care Provider: Frankie Sheehan ED Provider: Tucker Leong Home Meds and New Rx's Prescriptions: Continued acetaminophen 325 mg Tablet 650 mg PO QID Qty: 0 0RF cyclobenzaprine 10 mg Tablet 10 mg PO TID PRN (Reason: Back Pain) Qty: 30 0RF prednisone 20 mg Tablet 40 mg PO DAILY Qty: 8 0RF ibuprofen 600 mg tablet 600 mg PO Q6H PRNQty: 60 0RF Rx Instructions: take with food Discharge Instructions Instructions: Chest Pain (ED) Additional Instructions: follow up with your primary care provider as soon as possible if you feel more ill, have severe worsening pain or difficulty breathing return to the emergency department Medical Decision Making 67 yo male with hx of sick sinus syndrome s/p pacemaker placement in 2013, who comes in with chest pain. He states he has been constipated for 3 days and today had a bowel movement then shortly after developed chest aching and pressure that lasted 20 minutes and resolved. No dyspnea, no diaphoresis, no radiation of the pain. He feels well now, no dyspnea, speaking clearly in in no distress and denies pain. Caox4, clear lungs, no murmurs. Is noted to be in bigeminy, no stemi on ekg. Given his history will proceed with cbc, cmp, lipase and d dimer along with troponin. He has no tearing back pain and equal peripheral pulses so doubt dissection d dimer minimally elevated, troponin negative, will proceed with cta and delta troponin nursing had difficulty with IV and the one they did place stopped working in [place]. Pt is declining any additional IV attempts or blood draws and requesting to leave. He has clinical decision making capacity and understands risks of leaving including and permanent disability. He is leaving AGAINST MEDICAL ADVISE. He understands he can return if he changes his mind at any point and advised to f/u with pcp negrito Differential Diagnosis Differential Diagnosis: nstemi, electrolyte abnormality, pe Medical Records Medical records reviewed: Yes I reviewed the patient's medical records. Lab Data Lab results reviewed: Yes I reviewed the patient's lab results. ECG Data Attestation: I personally reviewed and interpreted this ECG (s) as follows: Prior ECG tracings: not available for review Interpretation: sinus with rate of 86, pr 202, bigeminy, no stemi HPI General Mode of arrival: ambulatory . Date/Time Provider Initiated Documentation: 10/19/22 11:35 . Limitations to Documentation: no limitations . Information obtained by: patient . History of Present Illness 67 year old M presents to the emergency department with the chief complaint of chest pain, described as moderate, Quality is described as aching, and is localized to the chest. Patient reports no radiation. Patient started experiencing this hour(s) (1) and it has been now resolved. No relieving factors improve symptom(s), No exacerbating factors reported . Patient notes denies fever/chills and shortness of breath. Patient did receive the following treatments prior to arrival, none Related Data Home Medications Medication Instructions Recorded Confirmed acetaminophen 325 mg tablet 650 mg PO QID #0 tabs 10/13/22 cyclobenzaprine 10 mg tablet 10 mg PO TID PRN Back Pain #30 tabs 10/13/22 ibuprofen 600 mg tablet 600 mg PO Q6H PRN #60 tabs 10/13/22 prednisone 20 mg tablet 40 mg PO DAILY #8 tabs 10/13/22 Previous Rx's Medication Instructions Recorded acetaminophen 325 mg tablet 650 mg PO QID #0 tabs 10/13/22 cyclobenzaprine 10 mg tablet 10 mg PO TID PRN Back Pain #30 tabs 10/13/22 ibuprofen 600 mg tablet 600 mg PO Q6H PRN #60 tabs 10/13/22 prednisone 20 mg tablet 40 mg PO DAILY #8 tabs 10/13/22 Allergies Allergy/AdvReac Type Severity Reaction Status Date / Time No Known Allergies Allergy Unverified 10/11/22 10:37 General Stated Complaint: Chest Pain MARCELLE: 3 Review of Systems All systems reviewed & are unremarkable except as noted in HPI and below Constitutional Constitutional: Denies chills, Denies fever(s) and Denies weakness ENT Ears, Nose, Mouth, and Throat: Denies change in voice Cardiovascular Cardiovascular: Reports chest pain and Denies dyspnea Respiratory Respiratory: Denies cough and Denies dyspnea Gastrointestinal Gastrointestinal: Denies abdominal pain, Denies nausea and Denies vomiting Musculoskeletal Musculoskeletal: Denies joint swelling Neurologic Neurologic: Denies weakness PFSH All Active Problems (Updated 10/19/22 @ 15:47 by Tucker Leong MD) Chest pain (Acute) Acute exacerbation of chronic low back pain (Acute) Chronic low back pain (Chronic) Sick sinus syndrome (Acute 06/13/13) Status post placement of cardiac pacemaker (Acute 06/14/13) Severe back pain (Acute) Radiculopathy due to lumbar intervertebral disc disorder (Acute) Social History Smoking/Tobacco Use Status: Former Tobacco Use Smoking risk assessment performed?: Yes Alcohol Intake: former Drug use: Never Substance use type: does not use Housing: house Do you feel safe at home: Yes Do you feel safe in your relationship?: Yes Exam Const General: no acute distress Orientation: alert HENMT Head: normal to inspection Ears: external ears normal General nose exam: external nose normal Mouth: moist mucous membranes Eyes General: appearance normal, both eyes and all related structures Neck Neck: normal visual inspection Chest Chest: normal inspection of the chest Resp Effort & Inspection: normal respiratory effort and able to speak in complete sentences Auscultation: clear to auscultation bilaterally Cardio Jugular venous pressure: no JVD Rate: regular rate Heart Sounds: no murmurs Skin General skin exam: no rashes or lesions noted Neuro General: patient alert and patient oriented x3 Extrem General: normal to inspection Psych Mental Status: mental status grossly normal Course Vital Signs Vital signs: Vital Signs Temperature 36.8 C 10/19/22 11:10 Pulse 45 L 10/19/22 11:10 Respiratory Rate 18 10/19/22 11:10 Blood Pressure 134/63 10/19/22 11:10 Pulse Oximetry 99 10/19/22 11:10 Temperature 36.8 C 10/19/22 11:10 Temperature Source Oral 10/19/22 11:10 Pulse 45 L 10/19/22 11:10 Respiratory Rate 18 10/19/22 11:10 Blood Pressure 134/63 10/19/22 11:10 Blood Pressure Position Sitting 10/19/22 11:10 Pulse Oximetry 99 10/19/22 11:10 Oxygen Delivery Method Room Air 10/19/22 11:10 Oxygen Flow Rate 0 10/19/22 11:10 Pain Level 0 10/19/22 11:10
[2022-10-19 11:49] LABS: Abs Immature Grans 0.07 10^3/uL (0.0-0.06); Absolute Basophil Count 0.09 10^3/uL (0.0-0.2); Absolute Eosinophil Count 0.12 10^3/uL (0.0-0.7); Absolute Monocyte Count 0.66 10^3/uL (0.1-0.8); Absolute Neutrophil Count 9.52 10^3/uL (1.2-6.7); Basophils % 0.7; Eosinophils % 0.9; HCT 53.2 % (40.0-50.0); HGB 17.6 g/dL (13.5-17.5); Immature Grans % 0.5; Lymphocytes % 20.2; MCHC 33.1 % (32.0-36.0); MCV 100 fL (80-95); MPV 10.8 fL (8.0-11.0); Neutrophils % 72.7; Platelet Count 256 10^3/uL (130-400); RBC 5.34 10^6/uL (4.36-5.78); RDW 12.7 % (11.8-14.1); RDW-SD 46.5 fL
[2022-10-19 11:52] LABS: Absolute Lymphocyte Count 2.65 10^3/uL (1.2-3.4)
[2022-10-19 12:18] LABS: ALT 31 U/L (16-63); AST 19 U/L (15-37); Albumin 3.5 g/dL (3.4-5.0); Alkaline Phosphatase 76 U/L (46-116); Anion Gap 7.9 mmol/L (3-11); BUN 29 mg/dL (7-18); Bilirubin, Total 0.8 mg/dL (0.2-1.0); CO2 28.1 mmol/L (21.0-32.0); CREATININE 1.2 mg/dL (0.70-1.30); Calcium 8.6 mg/dL (8.5-10.1); Chloride 106 mmol/L (98-107); Estimated GFR 65.46 (mL/min/1.73m2); Glucose 103 mg/dL (74-106); Magnesium 1.9 mg/dL (1.8-2.4); Potassium 4.6 mmol/L (3.5-5.1); Sodium 142 mmol/L (136-145); TSH (W/Ref FT4) 9.11 uIU/mL (0.36-3.74); Total Protein 6.9 g/dL (6.4-8.2); Troponin I < 50 ng/L (<or=60)
[2022-10-19 12:25] LABS: D-Dimer 853 ng/mlFEU (<500)
--- NOTE | 2022-10-19 12:35 | DI.VRAD_ITS ---
PROCEDURE INFORMATION: Exam: XR Chest Exam date and time: 10/19/2022 12:03 PM Age: 67 years old Clinical indication: Chest pressure; Prior surgery; Surgery date: 6+ months; Surgery type: Pacemaker; Patient HX: Chest pain TECHNIQUE: Imaging protocol: Radiologic exam of the chest. Views: 1 view. COMPARISON: No relevant prior studies available. FINDINGS: Tubes, catheters and devices: Bipolar pacemaker right chest wall with transvenous the right atrium. The ventricular lead is not included on the image. Lungs: The lung volumes are reduced. There is slight increase in the interstitial markings in the lung favoring the left lower lobe. This finding may be normal at full inspiration excluding interstitial or early lobar pneumonia possible. Pleural spaces: Unremarkable. No pleural effusion. No pneumothorax. Heart/Mediastinum: Moderate multi chamber cardiac enlargement. The aorta is normal in diameter. Bones/joints: Unremarkable. IMPRESSION: Hypoventilation with increase in the interstitial markings in the infrahilar areas favoring the left lower lobe. Excluding interstitial or lobar pneumonia not possible. Asymmetric pulmonary edema is another possibility. Dictated and Authenticated by: Ton Tomas MD. Ordering:MICHELLE Ceballos MD
[2022-10-19 13:05] LABS: FREE T4 0.81 ng/dL (0.76-1.46)
--- NOTE | 2022-10-19 13:08 | NUR.NOTE ---
Nursing Note: Assuming care of pt. Following two attempted IV's, pt adamantly refusing continued care, states, I'd rather just go home than get another IV. Pt advised of risks of refusing, up to and including sudden . Pt states he is aware of the risk stating, the IV hurts. Pt advised to wait until the physician sees him before leaving. Pt agreeable to this and Dr. Leong notified.
== END 2022-10-19 15:58 | disposition left against medical advice (07) ==
PROVIDERS: Emergency Provider Emergency Medicine; PCP Internal Medicine
DX: R07.9 Chest pain, unspecified (principal); R42 Dizziness and giddiness; R94.31 Abnormal electrocardiogram [ECG] [EKG]; Z95.0 Presence of cardiac pacemaker; Z53.29 Procedure and treatment not carried out because of patient's decision for other reasons
CPT/HCPCS: 80053; 93005; 99284; 71045; 83735; 84439; 84443; 84484; 85025; 85379; 93010; 99283

== ENCOUNTER 2023-08-17 09:37 | Emergency (ER) | payer OTHER, SELFPAY ==
[2023-08-17 09:50] VITALS: BP 170/72; PULSE 74; RESP 20; TEMP 36.8; O2SAT 94
[2023-08-17 09:55] VITALS: BP 170/72; PULSE 74; RESP 20; TEMP 36.8; O2SAT 94
--- NOTE | 2023-08-17 10:02 | ED.GENADUL_ITS ---
Discharge Plan Disposition Patient Disposition: Home Condition: Stable Discharge Details Clinical Impression: Dental infection Primary Care Provider: Frankie Sheehan ED Provider: Acosta Pringle Home Meds and New Rx's Prescriptions: New amoxicillin-pot clavulanate 875-125 mg tablet 1 tab PO BID 10 Days Qty: 20 0RF Continued acetaminophen 325 mg Tablet 650 mg PO QID Qty: 0 0RF ibuprofen 600 mg tablet 600 mg PO Q6H PRNQty: 60 0RF Rx Instructions: take with food Discharge Instructions Instructions: Dental Abscess (ED) Additional Instructions: You were seen in the emergency department for your dental abscess. We performed an incision and drainage, keep the area draining, use your hand to milk the wound area, perform salt water gargles 3 times per day. Take the prescribed antibiotics as needed. Take regular doses of Tylenol and ibuprofen, strict return criteria for any vocal changes, inability to open or close your jaw, excessive drooling. Referrals: Frankie Sheehan MD [Primary Care Provider] - [facility] General Date/Time Provider Initiated Documentation: 08/17/23 09:57 . HPI Narrative: 68 year-old male presents to ED today by POV/ambulating with a chief complaint of dental pain, L lower jaw swelling with onset the past 2 days, has been feeling pain in this area for 2 weeks prior. Quality described as throbbing pain, mild swelling and redness, no radiation to trismus, vocal changes, excessive drooling, fever, dysphagia, neck pain. Severity is described as moderate. Palliating factors include Motrin last night at midnight. Provoking factors include nothing specific- known dental decay/caries. Patient not anticoagulated. Related Data Home Medications Medication Instructions Recorded Confirmed acetaminophen 325 mg tablet 650 mg (2 x 325 mg) PO QID #0 tabs 10/13/22 08/17/23 ibuprofen 600 mg tablet 600 mg PO Q6H PRN #60 tabs 10/13/22 08/17/23 amoxicillin 875 mg-potassium 1 tab PO BID dental infection 10 08/17/23 clavulanate 125 mg tablet days #20 tabs Previous Rx's Medication Instructions Recorded acetaminophen 325 mg tablet 650 mg (2 x 325 mg) PO QID #0 tabs 10/13/22 ibuprofen 600 mg tablet 600 mg PO Q6H PRN #60 tabs 10/13/22 amoxicillin 875 mg-potassium 1 tab PO BID dental infection 10 08/17/23 clavulanate 125 mg tablet days #20 tabs Allergies Allergy/AdvReac Type Severity Reaction Status Date / Time No Known Allergies Allergy Unverified 08/17/23 10:22 General Stated Complaint: DentalOral MARCELLE: 3 Review of Systems All systems reviewed & are unremarkable except as noted in HPI and below Exam Narrative Exam Narrative: GENERAL APPEARANCE: Well-nourished, non-toxic, awake and alert, atraumatic, no acute distress. SKIN: Warm, pink, dry, intact, without rashes/lesions/ulcerations. HEAD: Normocephalic, atraumatic, normal hair distribution for gender/age. EYES: Normal conjunctiva, no exudates on lids/lashes. ENT: Nares patent, no circumoral cyanosis, diffuse dental decay and caries, multiple prior extractions, fluctuant swelling to gingiva lower left jaw ~1cm, no purulent drainage, no trismus, no vocal changes NECK: Supple, trachea midline, painless cervical ROM. LUNGS/CHEST: Non-labored respirations, normal A/P diameter, symmetrical expansion, no chest wall deformity HEART (CV/PV): No peripheral edema, no JVD. ABDOMEN: Soft, non-distended, no guarding. MSK: Normal ROM, no swelling/deformity to bilateral UEs or LEs, moving all extremities without weakness, no cyanosis, spine midline without tenderness, normal curvature. NEURO: Mental Status AAOx4 - alert to person, place, time, events No facial droop, no forehead involvement. Motor: No focal weakness - strength 5/5 in bilateral UEs and LEs, proximal and distal, symmetric. Sensory: sensation intact to light touch globally. Gait normal: patient ambulated without ataxia into ED room. PSYCH: euthymic, cooperative, pleasant, appropriate speech Course Vital Signs Vital signs: Vital Signs Temperature 36.8 C 08/17/23 09:50 Pulse 74 08/17/23 09:50 Respiratory Rate 20 08/17/23 09:50 Blood Pressure 170/72 H 08/17/23 09:50 Pulse Oximetry 94 08/17/23 09:50 Temperature 36.8 C 08/17/23 09:55 Temperature Source Temporal Artery Scan 08/17/23 09:55 Pulse 74 05/20/24 09:55 Respiratory Rate 20 08/17/23 09:55 Respiratory Effort Normal, Non-Labored 08/17/23 09:55 Blood Pressure 170/72 H 08/17/23 09:55 Blood Pressure Position Sitting 08/17/23 09:55 Pulse Oximetry 94 08/17/23 09:55 Oxygen Delivery Method Room Air 08/17/23 09:55 Oxygen Flow Rate 0 08/17/23 09:55 Procedures Abscess I/D Site: Other (Lower Left Gums) Side (if applicable): Left Local Anesthetic: Other Anesthetic (Viscous Lidocaine) Amount of anesthesia used (mL): 15 Technique: Incised with #11 Blade Irrigation: Yes Packing used?: None Medical Decision Making This dictation utilizes [id number] dictation software and may contain unedited grammatical errors. 68 y/o M presents to ED today with a chief complaint of dental pain for 2 weeks, 2 days of mild jaw swelling and redness. No trismus, no dysphagia, no fevers, no vocal changes. Patients' medical history: Noncontributory. Family and social history: Noncontributory. Pertinent exam findings / vital signs include ENT: Nares patent, no circumoral cyanosis, diffuse dental decay and caries, multiple prior extractions, fluctuant swelling to gingiva lower left jaw, no purulent drainage, no trismus, no vocal changes. Differential / pathologies of concern include dental abscess, dental infection, facial cellulitis. Diagnostic studies of: -None. Interventions of: -P.o. Tylenol and Motrin, p.o. Augmentin, viscous lidocaine, incision and drainage. ED Course/Assessment/Plan: 68-year-old male presents with 2 weeks of left lower jaw pain with some mild swelling. He has fluctuant area of swelling below the gumline of the left lower teeth, I used viscous lidocaine to locally anesthetize the area and made a small incision with an 11 blade, patient was able to manually express significant [place] of purulent material and swish and spit. I counseled him on continuing salt water gargles at home, prescribed him Augmentin. Recommend strict return criteria for inability to open or close to jaw, vocal changes, dysphagia, recommend he follow-up with a dentist. Findings not consistent with retropharyngeal abscess, peritonsillar abscess, severe facial cellulitis, neck swelling, angioedema. Disposition of dental infection. Patient verbalized understanding of the plan and return to ED criteria and engaged in shared decision making. Medical Records Medical records reviewed: Yes I reviewed the patient's medical records. Quality:SDOH Health Related Social Needs: No Data to Display PFSH All Active Problems (Updated 08/17/23 @ 10:38 by NYLA Elena) Dental infection (Acute) Acute exacerbation of chronic low back pain (Acute) Chronic low back pain (Chronic) Sick sinus syndrome (Acute 06/13/13) Status post placement of cardiac pacemaker (Acute 06/14/13) Severe back pain (Acute) Radiculopathy due to lumbar intervertebral disc disorder (Acute) Social History Smoking/Tobacco Use Status: Former Tobacco Use Smoking risk assessment performed?: Yes Alcohol Intake: former Drug use: Never Substance use type: does not use Housing: house Do you feel safe at home: Yes Do you feel safe in your relationship?: Yes
[2023-08-17] MEDS: Acetaminophen 325 MG TAB 650 MG PO (10:13)
[2023-08-17] MEDS: Amoxicillin 875/Clav. 125 TAB PO (10:14)
[2023-08-17] MEDS: Ibuprofen 400 MG TAB PO (10:14)
[2023-08-17] MEDS: Lidocaine 2% Viscous 15 ML CUP PO (10:30)
[2023-08-17] MEDS: Lidocaine 2% Viscous 15 ML CUP (11:07)
[2023-08-17 11:29] VITALS: BP 170/72; PULSE 74; RESP 20; TEMP 36.8; O2SAT 94
== END 2023-08-17 11:30 | disposition home or self-care (01) ==
LOC: ER 11:21
PROVIDERS: Emergency Provider Physician Assistant; PCP Internal Medicine
DX: R68.84 Jaw pain (principal); K04.7 Periapical abscess without sinus
CPT/HCPCS: 41800

== ENCOUNTER 2024-05-03 01:33 | Inpatient (IN) | payer MEDICARE, SELFPAY ==
[2024-05-03] VITALS (124 sets, daily range): BP systolic 118–181; BP diastolic 70–128; PULSE 41–103; RESP 11–32; TEMP 36.2–36.9; O2SAT 73–97
--- NOTE | 2024-05-03 01:30 | RT.EKG_ITS ---
APPROVED REPORT Exam: Resting ECG Reason for Exam: CHEST PAIN Patient Location: E HR:89 bpm ECG Measurements Heart Rate 89 AXIS AK [id number] P [id number] QRSd 124 QRS -55 QT 396 T 68 QTc 483 Conclusion Atrial fibrillation...? atrial activity Paired ventricular premature complexes...sequence of 2 V complexes Aberrant conduction of SV complex(es)...aberrant shape, [place] 80-220 LVH with secondary repolarization abnormality...multi-LVH criteria, abnrm ST-T no STEMI
--- OUTSIDE RECORDS SUMMARY | 2024-05-03 01:44 | XMS_ITS | Clinical Summary ---
Author Organization [facility] Address [address] [place] [address] Care Team Providers Care Corrections Unit Supervisor Name Role Phone Unavailable Primary Care Provider Unavailabl e Social History Tobacco Use Types Packs/Day Years Used Date Smoking Tobacco: Never Assessed Sex and Gender Information Value Date Recorded Sex Assigned at Not on file Legal Sex Male 17:47 EST Gender Identity Not on file Sexual Orientation Not on file Plan of Treatment Health Maintenance Due Date Last Done Comments Hepatitis C Screen 1955 Fall Risk Screening 2018 COVID-19 Vaccine (2023- season) 2023 RSV Immunization ( o r 60+ Years) (1 - 1-dose 75+ series) 2028
--- OUTSIDE RECORDS SUMMARY | 2024-05-03 01:44 | XMS_ITS | Referral Summary ---
Author Organization [facility] Address [address] [place] [address] Care Team Providers Care Duplication Specialist Name Role Phone Unavailable Primary Care Provider Unavailabl e Social History Tobacco Use Types Packs/Day Years Used Date Smoking Tobacco: Never Assessed Sex and Gender Information Value Date Recorded Sex Assigned at Not on file Legal Sex Male 17:47 EST Gender Identity Not on file Sexual Orientation Not on file Plan of Treatment Not on file
--- OUTSIDE RECORDS SUMMARY | 2024-05-03 01:44 | XMS_ITS | Encounter Summary ---
Author Organization [facility] Address [address] [place] [address] Care Team Providers Care Quick Sketch Artist Name Role Phone Unavailable Primary Care Provider Unavailabl e Encounter Details Date Type Department Care Team (Late st Contact Info) Description 04/08/2002 Results Only [facility] [address] [place] [address] Ant Shin, [address] [facility] [address] [place], [place] [id number] Social History Tobacco Use Types Packs/Day Years Used Date Smoking Tobacco: Never Assessed Sex and Gender Information Value Date Recorded Sex Assigned at Not on file Legal Sex Male 17:47 EST Gender Identity Not on file Sexual Orientation Not on file documented as of this encounter Plan of Treatment Not on file documented as of this encounter Procedures Procedure Name Priority Date/Time Associated Diagnosis Comments SURGICAL PATHOLOGY Routine 04/08/2002 0:00 EST documented in this encounter Results * SURGICAL PATHOLOGY (04/08/2002 0:00 EST) Pathology Report: SURGICAL PATHOLOGY REPORT Reports generated via electronic interface contain original data; however they are lacking the format of the original report. Caution should be taken when reading/interpreti ng unformatted reports. Name: ? DEIDRA MEDINA JR ? Accession #: ? [id number] ? : ? 1955 (Age: 46) ??M ? Collect Date: ? 04/08/2002 ? Location: ? [facility] ? Receive Date: ? 04/11/2002 ? Provider: ANT SHIN DO Copy to: WALDO HAIR MD ? Addendum ? Date Ordered: ? 04/18/2002 ? Status: Signed Out ? Date Complete: ? 04/18/2002 ? By: Kelsey Napier ? Date Reported: ? 04/18/2002 ? Addendum Comment ? The MRN listed on this report is incorrect. ??The specimen was received on Deidra Medina Sr, 09[birth year]25; . ??The MRN originally utilized ([id number]) belongs to Deidra Medina Jr, 51. ??The case was re-accessioned on 04/18/02 as [id number] under the correct MRN. ??Charges have been moved. ??Slides and blocks have been relabelled. /klb Document reviewed and electronically signed by: ? LISA HARTMANN MD ? Report date: 04/18/2002 By the signature above, the attending physician certifies that he/she has personally conducted a gross and/or microscopic examination of the described specimens and rendered or confirmed the above diagnosis. Final Pathologic Diagnosis: ? Foot, ulcer, debridement: 1. ?Hyperkeratotic skin with ulceration. See comment. 2. ?Subcutaneous tissue with gangrenous necrosis. 3. ?No evidence of malignancy. Comment: ? The specimen is designated as right on the specimen container and left on the accessioning form. ??Correlation with the operative report is necessary. Document reviewed and electronically signed by: LISA HARTMANN MD Report ??Date: 04/13/2002 18:46 By the signature above, the attending physician certifies that he/she has personally conducted a gross and/or microscopic examination of the described specimens and rendered or confirmed the above diagnosis. Specimen(s) Received: ? Debridement tissue foot ulcer, left Clinical History: ? Diabetic foot ulcer, left Gross Description: ? Received in formalin labeled Medina and R foot ulcer tissue is an ovoid of skin and underlying tissue that measures 3.5 x 3.0 cm and is 0.7 cm thick. There is a 1.4 x 1.3 cm shallow ulcer eccentrically located on the specimen. The resection margin is black inked. The skin is peeling away from the underlying tissue. ??Two sales representative sales manager sections are submitted as (A1) and (A2). (Dr. Garcia)/indra End of Report [facility] 04/08/2002 04/11/2002 15: 17 EST us Ant Shin DO PATHOLOGY ORDERABLES Fi nal Result [facility] [address] [place] [address] documented in this encounter Visit Diagnoses Not on filedocumented in this encounter
--- NOTE | 2024-05-03 01:49 | ED.GENADUL_ITS ---
Discharge Plan Disposition Patient Disposition: Admit to [facility] Condition: Serious Discharge Details Clinical Impression: Chest pain, Pacemaker at end of battery life Primary Care Provider: Frankie Sheehan ED Provider: Jammie Ross Home Meds and New Rx's Prescriptions: No Action acetaminophen 325 mg Tablet 650 mg PO QID Qty: 0 0RF ibuprofen 600 mg tablet 600 mg PO Q6H PRNQty: 60 0RF Rx Instructions: take with food HPI General Mode of arrival: ambulatory . Date/Time Provider Initiated Documentation: 05/03/24 01:33 . Limitations to Documentation: no limitations . Information obtained by: patient . HPI Narrative: 68yo M with pacemaker in place, placed in 2013 here at [facility] for sick sinus syndrome (otherwise denies medical problems), presenting for chest pain and lightheadedness onset while snowblowing driveway. Pain is dull, substernal/left sided, and non-radiating. Constant but waxing and waning in severity. Whole body including face, chest, back, arms, hands, legs, feels 'tingly'. Associated shortness of breath particularly with exertion. Has felt generally unwell and 'run down' for about a week. Othewrwise in his usual state of health with no fevers, chills, rash, nausea, vomiting, abdominal pain, back pain, focal weakness, numbness, or other concerns. Related Data Home Medications ?Medication ?Instructions ?Recorded ?Confirmed acetaminophen 325 mg tablet 650 mg (2 x 325 mg) PO QID #0 tabs 10/13/22 05/03/24 ibuprofen 600 mg tablet 600 mg PO Q6H PRN #60 tabs 10/13/22 05/03/24 Previous Rx's ?Medication ?Instructions ?Recorded acetaminophen 325 mg tablet 650 mg (2 x 325 mg) PO QID #0 tabs 10/13/22 ibuprofen 600 mg tablet 600 mg PO Q6H PRN #60 tabs 10/13/22 Allergies Allergy/AdvReac Type Severity Reaction Status Date / Time No Known Allergies Allergy Unverified 05/03/24 01:44 General Stated Complaint: GenMedical MARCELLE: 3 Review of Systems Narrative: see HPI Exam Narrative Exam Narrative: General: Alert, well appearing, well nourished, in no acute distress. Head: Normocephalic, atraumatic Neck: Trachea midline, ?Neck supple. ENT: ?MMM.? No oropharygeal lesions or exudate. Cardiac: ?Irregular, no murmurs appreciated Resp: No respiratory distress. CTAB. Abd: ?Soft, non-distended, nontender : ?No suprapubic tenderness.. Extremities: ?No deformities.? No peripheral edema. Neurologic: GCS 15. ? Moves all extremities freely against gravity Course Vital Signs Vital signs: Vital Signs Temperature 36.8 C 05/03/24 01:35 Pulse 80 05/03/24 01:35 Respiratory Rate 18 05/03/24 01:35 Pulse Oximetry 96 05/03/24 01:35 Temperature 36.8 C 05/03/24 01:35 Temperature Source Temporal Artery Scan 05/03/24 01:35 Pulse 98 H 05/03/24 01:44 Pulse 97 H 05/03/24 01:44 Respiratory Rate 20 05/03/24 01:44 Blood Pressure 167/109 H 05/03/24 01:44 Blood Pressure Mean 116 05/03/24 01:44 Blood Pressure Position Supine 05/03/24 01:35 Pulse Oximetry 96 05/03/24 01:35 Oxygen Delivery Method Room Air 05/03/24 01:35 Oxygen Flow Rate 0 05/03/24 01:35 Pain Level 0 05/03/24 01:35 Comment no pain, just feels funny 05/03/24 01:35 Medical Decision Making 68yo M with pacemaker in place, placed in 2013 here at [facility] for sick sinus syndrome, presenting for chest pain and lightheadedness with shortness of breath, onset while snowblowing driveway. Vital signs reassuring on arrival. Well appearing on physical exam, no respiratory distress. Given 325 of ASA on arrival. No hypoxia or tachycardia to suggest pulmonary embolism and no signficant risk factors for such. -EKG SR, IVD, occasional based beats, frequent PVCs. No ST segment or T wave abnormalities to suggest occlusive KS. -CXR independently reviewed, no focal pneumonia or pneumothorax on my view; radiology read below with no accute findings. -Labs reviewed as below, CBC reassuring with no leukocytosis or anemia, CMP with no actionable abnormalitites, Mg slightly low at 1.6, lipase not suggestive of pancreatitis, TSH high with normal T4, coags normal, BNP elevated at around ~4500 (patient not clinically in heart failure), initial trop 58. Respiratory viral swabs negative. Pacer interrogated and showing EOS alert. Discussed with [facility] cardiology; pt accepted under Dr. Vaz for pacemaker replacement. Bed anticipated tomorrow afternoon. Discussed with [facility] hospitalist Dr. Lewis; pt accepted to medicine service. Awaiting admission orders and transfer to the floor. Imaging Data Radiologic Study: Imaging: X-Ray Radiologist's impression: IMPRESSION: No acute findings. Lab Data Lab results reviewed: Yes I reviewed the patient's lab results. Labs: Laboratory Tests Range/Units 05/03/24 05/03/24 05/03/24 01:45 02:10 03:00 WBC (4.4-10.8) 10^3/uL 8.51 RBC (4.36-5.78) 10^6/uL 4.80 Hgb (13.5-17.5) g/dL 15.8 Hct (40.0-50.0) % 48.2 MCV (80-95) fL 100 H MCH (27.0-33.0) pg 32.9 MCHC (32.0-36.0) % 32.8 RDW (11.8-14.1) % 12.5 Plt Count (130-400) 10^3/uL 202 MPV (8.0-11.0) fL 11.6 H Immature Gran % % 0.2 Neutrophils % % 70.1 Lymphocytes % % 20.9 Monocytes % % 6.9 Eosinophils % % 1.1 Basophils % % 0.8 Nucleated RBC % (0.0-0.3) % 0.0 Absolute Neutrophils (1.2-6.7) 10^3/uL 5.96 Absolute Lymphocytes (1.2-3.4) 10^3/uL 1.78 Absolute Monocytes (0.1-0.8) 10^3/uL 0.59 Absolute Eosinophils (0.0-0.7) 10^3/uL 0.09 Absolute Basophils (0.0-0.2) 10^3/uL 0.07 PT (9.1-11.1) sec 10.4 INR (0.9-1.1) 1.0 APTT (20.6-30.2) sec 24.6 Sodium (136-145) mmol/L 144 Potassium (3.5-5.1) mmol/L 4.2 Chloride (98-107) mmol/L 106 Carbon Dioxide (21.0-32.0) mmol/L 32.7 H Anion Gap (3-11) mmol/L 5.3 BUN (7-18) mg/dL 18 Creatinine (0.70-1.30) mg/dL 1.3 Est GFR (CKD-EPI 2020) (mL/min/1.73m2) 59.10 Glucose (74-106) mg/dL 111 H Calcium (8.5-10.1) mg/dL 9.3 Magnesium (1.8-2.4) mg/dL 1.6 L Total Bilirubin (0.2-1.0) mg/dL 0.89 AST (15-37) U/L 21 ALT (16-63) U/L 25 Alkaline Phosphatase (46-116) U/L 111 Troponin I (<or=76) ng/L 58 Cancelled NT-Pro-B Natriuret Pep (<300) pg/mL 4561 H Total Protein (6.4-8.2) g/dL 7.9 Albumin (3.4-5.0) g/dL 3.8 Lipase (<78) U/L 89 H TSH (0.36-3.74) uIU/mL 9.82 H Free T4 (0.76-1.46) ng/dL 0.82 COVID-19 Source Nasopharynx SARS-CoV-2 (PCR) (Negative) Negative Influenza Type A (PCR) (Negative) Negative Influenza Type B (PCR) (Negative) Negative RSV (PCR) (Negative) Negative Range/Units 05/03/24 03:17 WBC (4.4-10.8) 10^3/uL RBC (4.36-5.78) 10^6/uL Hgb (13.5-17.5) g/dL Hct (40.0-50.0) % MCV (80-95) fL MCH (27.0-33.0) pg MCHC (32.0-36.0) % RDW (11.8-14.1) % Plt Count (130-400) 10^3/uL MPV (8.0-11.0) fL Immature Gran % % Neutrophils % % Lymphocytes % % Monocytes % % Eosinophils % % Basophils % % Nucleated RBC % (0.0-0.3) % Absolute Neutrophils (1.2-6.7) 10^3/uL Absolute Lymphocytes (1.2-3.4) 10^3/uL Absolute Monocytes (0.1-0.8) 10^3/uL Absolute Eosinophils (0.0-0.7) 10^3/uL Absolute Basophils (0.0-0.2) 10^3/uL PT (9.1-11.1) sec INR (0.9-1.1) APTT (20.6-30.2) sec Sodium (136-145) mmol/L Potassium (3.5-5.1) mmol/L Chloride (98-107) mmol/L Carbon Dioxide (21.0-32.0) mmol/L Anion Gap (3-11) mmol/L BUN (7-18) mg/dL Creatinine (0.70-1.30) mg/dL Est GFR (CKD-EPI 2020) (mL/min/1.73m2) Glucose (74-106) mg/dL Calcium (8.5-10.1) mg/dL Magnesium (1.8-2.4) mg/dL Total Bilirubin (0.2-1.0) mg/dL AST (15-37) U/L ALT (16-63) U/L Alkaline Phosphatase (46-116) U/L Troponin I (<or=76) ng/L 50 NT-Pro-B Natriuret Pep (<300) pg/mL Total Protein (6.4-8.2) g/dL Albumin (3.4-5.0) g/dL Lipase (<78) U/L TSH (0.36-3.74) uIU/mL Free T4 (0.76-1.46) ng/dL COVID-19 Source SARS-CoV-2 (PCR) (Negative) Influenza Type A (PCR) (Negative) Influenza Type B (PCR) (Negative) RSV (PCR) (Negative) Quality:SDOH Health Related Social Needs: No Data to Display PFSH All Active Problems (Updated 05/03/24 @ 03:47 by Jammie Ross MD) Pacemaker at end of battery life (Acute) Chest pain (Acute) Elevated TSH (Chronic) Hypomagnesemia (Acute) Acute exacerbation of chronic low back pain (Acute) Chronic low back pain (Chronic) Sick sinus syndrome (Chronic 06/13/13) Status post placement of cardiac pacemaker (Chronic 06/14/13) Severe back pain (Acute) Radiculopathy due to lumbar intervertebral disc disorder (Acute) Social History Smoking/Tobacco Use Status: Former Tobacco Use Smoking risk assessment performed?: Yes Alcohol Intake: former Drug use: Never Substance use type: does not use Housing: house Do you feel safe at home: Yes Do you feel safe in your relationship?: Yes
--- NOTE | 2024-05-03 02:00 | DI.RAD_ITS ---
Exam(s) XR CHEST 2V PA LATERAL EXAM: XR CHEST 2V PA LATERAL CLINICAL HISTORY: Chest pain TECHNIQUE: 2D digital imaging was performed. Two views. COMPARISON: CR,XR XR PORTABLE CHEST AP from 10/19/2022 FINDINGS: HEART: Mildly enlarged. Pacemaker. Aorta: Mildly tortuous. PULMONARY VASCULATURE: Normal. MEDIASTINUM: Unremarkable. LUNGS: Suboptimal pulmonary inflation. No infiltrate or pulmonary edema is visible. PLEURAL SPACE: No pleural effusion or pneumothorax. BONE:Unremarkable for age. SOFT TISSUES: Unremarkable. IMPRESSION: No acute abnormality. DATA REPOSITORY: RADIATION DOSE DELIVERED:
[2024-05-03] MEDS: Aspirin 81 MG CHEW 324 MG CH (02:08)
[2024-05-03 02:10] LABS: Abs Immature Grans 0.02 10^3/uL (0.0-0.06); Absolute Basophil Count 0.07 10^3/uL (0.0-0.2); Absolute Eosinophil Count 0.09 10^3/uL (0.0-0.7); Absolute Lymphocyte Count 1.78 10^3/uL (1.2-3.4); Absolute Monocyte Count 0.59 10^3/uL (0.1-0.8); Absolute Neutrophil Count 5.96 10^3/uL (1.2-6.7); Basophils % 0.8 %; Eosinophils % 1.1 %; HCT 48.2 % (40.0-50.0); HGB 15.8 g/dL (13.5-17.5); Immature Grans % 0.2 %; Lymphocytes % 20.9 %; MCH 32.9 pg (27.0-33.0); MCHC 32.8 % (32.0-36.0); MCV 100 fL (80-95); MPV 11.6 fL (8.0-11.0); Monocytes % 6.9 %; Neutrophils % 70.1 %; Platelet Count 202 10^3/uL (130-400); RDW 12.5 % (11.8-14.1); RDW-SD 46.8 fL; WBC 8.51 10^3/uL (4.4-10.8)
[2024-05-03 02:24] LABS: PTT Activated 24.6 sec (20.6-30.2); Prothrombin Time 10.4 sec (9.1-11.1)
[2024-05-03 02:32] LABS: ALT 25 U/L (16-63); AST 21 U/L (15-37); Albumin 3.8 g/dL (3.4-5.0); Alkaline Phosphatase 111 U/L (46-116); Anion Gap 5.3 mmol/L (3-11); BUN 18 mg/dL (7-18); Bilirubin, Total 0.89 mg/dL (0.2-1.0); CO2 32.7 mmol/L (21.0-32.0); CREATININE 1.3 mg/dL (0.70-1.30); Calcium 9.3 mg/dL (8.5-10.1); Chloride 106 mmol/L (98-107); Glucose 111 mg/dL (74-106); Lipase 89 U/L (<78); Magnesium 1.6 mg/dL (1.8-2.4); NT-proBNP 4561 pg/mL (<300); Potassium 4.2 mmol/L (3.5-5.1); Sodium 144 mmol/L (136-145); Total Protein 7.9 g/dL (6.4-8.2); Troponin I 58 ng/L (<or=76)
[2024-05-03] MEDS: MAGNESIUM SULFATE 2 GM/50 ML BAG IV_INF (02:42)
[2024-05-03 02:52] LABS: COVID-19 PCR Negative (Negative); Influenza A PCR Negative (Negative); Influenza B PCR Negative (Negative); RSV PCR Negative (Negative)
[2024-05-03 02:52] LABS: TSH (W/Ref FT4) 9.82 uIU/mL (0.36-3.74)
--- NOTE | 2024-05-03 02:56 | DI.VRAD_ITS ---
PROCEDURE INFORMATION: Exam: XR Chest Exam date and time: 05/03/2024 2:18 AM Age: 68 years old Clinical indication: Other: Chest pain TECHNIQUE: Imaging protocol: Radiologic exam of the chest. Views: 2 views. COMPARISON: XR PORTABLE CHEST AP 10/19/2022 12:03 PM FINDINGS: Tubes, catheters and devices: Cardiac device present. Lungs: Low lung volumes. Lungs are clear. Pleural spaces: Unremarkable. No pleural effusion. No pneumothorax. Heart/Mediastinum: Unremarkable. No cardiomegaly. Bones/joints: Unremarkable. IMPRESSION: No acute findings. Dictated and Authenticated by: Mono Mora MD. Orderin Vandana Agudelo MD
[2024-05-03 03:06] LABS: Source Nasopharynx
[2024-05-03 03:08] LABS: FREE T4 0.82 ng/dL (0.76-1.46)
--- NOTE | 2024-05-03 03:30 | HPE_ITS ---
Date of service: 05/03/24 Time of Service: 03:30 Assessment and Plan Assessment and plan (1) Sick sinus syndrome: Start date: 05/03/24 Status: Chronic Assessment and plan: This is a 68-year-old gentleman who had a pacemaker placed by Dr. Christopher at [facility] 06/13/2013 with no follow-up since the operation. Patient appears to not see physicians in general and does have a history of hypothyroidism which was on treated with replacement levothyroxine now on no treatment. This TSH remains elevated with a normal free T4. Troponins were negative with no EKG changes of ischemia though he did have some dysrhythmia with occasional paced beats. He was also low magnesium with repletion IV. His pacemaker was interrogated and showing EOS alert with [facility] cardiology accepting patient for transfer for pacemaker replacement pending bed availability. Patient will have external pacemaker pads placed without vision on ICU level care with no ICU level bed available and patient to be in the ED hold bed until ICU bed becomes available here for transfer to [facility]. Accepting physician is Dr. Vaz. Patient is a DNR. (2) Status post placement of cardiac pacemaker: Start date: 03/30/13 Status: Chronic Assessment and plan: Pacemaker need to be replaced and is now functioning with skipped beats and patient symptomatic. Plan transfer as bed available. Patient will be n.p.o. pending transfer for possible pacemaker placement immediately and DVT prophylaxis will be withheld because of possible surgery later in the day. (3) Hypomagnesemia: Start date: 05/03/24 Status: Acute Assessment and plan: IV repletion with follow-up lab and further repletion if needed. (4) Elevated TSH: Status: Chronic Assessment and plan: Off levothyroxine supplement with free T4 normal and TSH elevated but stable. No intervention at this time but patient should discuss at follow-up with PCP. History of Present Illness History of Present Illness Chief Complaint: Palpitations, status post pacemaker 2013 without follow-up. Narrative: This is a 68-year-old male patient who had a pacemaker placed in May 2013 for sick sinus syndrome presumably at this institution by the surgeon, Dr. Christopher with cardiology, Dr. Awad in consultation on 06/13/2013. He has had no known cardiology follow-up since that time. He presented to the ED because of palpitations with tingling in his hands but no chest discomfort and had a negative workup for acute ischemia but was hypomagnesemia and we did receive IV magnesium replacement. He was found to have a malfunctioning pacemaker which was interrogated by [facility] and found to be at the end of battery life which usually would give 6 months time for replacement with uncertainty as to how long it has been in this state of malfunctioning. Cardiology at [facility], Dr. Vaz has accepted the patient in transfer with expected bed availability later in the afternoon. Patient is essentially asymptomatic and will be observed as an ED hold with no ICU bed available until transfer is available or ICU bed becomes available at this institution. The patient may need external pacing if pacemaker fails while being observed. Patient is a DNR. Review of Systems Narrative: 13 point review of systems otherwise unrevealing or stable. Patient denies any falls or syncope has had no peripheral edema. He is overweight. PFSH All Active Problems (Updated 05/03/24 @ 04:00 by JOEY THAKKAR) Pacemaker at end of battery life (Acute) Chest pain (Acute) Elevated TSH (Chronic) Hypomagnesemia (Acute) Acute exacerbation of chronic low back pain (Acute) Chronic low back pain (Chronic) Sick sinus syndrome (Chronic 06/13/13) Status post placement of cardiac pacemaker (Chronic 06/14/13) Severe back pain (Acute) Radiculopathy due to lumbar intervertebral disc disorder (Acute) Social History Smoking/Tobacco Use Status: Former Tobacco Use Smoking risk assessment performed?: Yes Alcohol Intake: former Drug use: Never Substance use type: does not use Housing: house Do you feel safe at home: Yes Do you feel safe in your relationship?: Yes Meds Allergies and Home Medications Allergies Allergy/AdvReac Type Severity Reaction Status Date / Time No Known Allergies Allergy Unverified 05/03/24 01:44 Home Medications ?Medication ?Instructions ?Recorded ?Confirmed ?Type acetaminophen 325 mg tablet 650 mg (2 x 325 mg) PO QID #0 tabs 10/13/22 05/03/24 Rx ibuprofen 600 mg tablet 600 mg PO Q6H PRN #60 tabs 10/13/22 05/03/24 Rx Exam Narrative Exam Narrative: General: Patient appears appropriate for age and is found to With morbid obesity. He is alert and oriented x 3 and in no acute distress. HEENT: Normocephalic, long, thin smalls hair and garcia with course and facial features. Eyes with pupils equal and reactive to light symmetrically, extraocular movement intact and sclera anicteric. Oropharynx with moist mucosa and fair dentition. Neck: Supple without JVD. Back: Kyphotic with good posture and decreased range of motion, loss of lordotic curve. No CVA tenderness. Lungs: Fair aeration clear to auscultation and percussion. No focalizing rales or rhonchi. Heart: Irregular rhythm with no appreciable murmur or gallop. Normal rate. Palpable subcutaneous pacemaker over right upper chest. Abdomen: Obese contour, soft nontender to palpation without palpable hepatosplenomegaly. Bowels are positive all quadrants. Genitalia: Exam deferred. Extremities: Trace pitting edema both lower extremities with no clubbing or cyanosis. Fair capillary refill. Skin: Normal color, warm and dry. Neuro: Cranial nerves II through XII gross intact, no focalized motor deficits. No tremor. Psych: Normal affect and mood. No abnormal thought processes. Remote and recent memory grossly intact. Results Imaging Imaging Studies: Exam: XR Chest Exam date and time: 05/03/2024 2:18 AM Age: 68 years old Clinical indication: Other: Chest pain TECHNIQUE: Imaging protocol: Radiologic exam of the chest. Views: 2 views. COMPARISON: XR PORTABLE CHEST AP 10/19/2022 12:03 PM FINDINGS: Tubes, catheters and devices: Cardiac device present. Lungs: Low lung volumes. Lungs are clear. Pleural spaces: Unremarkable. No pleural effusion. No pneumothorax. Heart/Mediastinum: Unremarkable. No cardiomegaly. Bones/joints: Unremarkable. IMPRESSION: No acute findings. Labs 05/03/24 01:45 05/03/24 01:45 Labs: Laboratory Results - last 24 hr 05/03/24 05/03/24 05/03/24 01:45 02:10 03:00 WBC 8.51 RBC 4.80 Hgb 15.8 Hct 48.2 MCV 100 H MCH 32.9 MCHC 32.8 RDW 12.5 Plt Count 202 MPV 11.6 H Immature Gran % 0.2 Neutrophils % 70.1 Lymphocytes % 20.9 Monocytes % 6.9 Eosinophils % 1.1 Basophils % 0.8 Nucleated RBC % 0.0 Absolute Neutrophils 5.96 Absolute Lymphocytes 1.78 Absolute Monocytes 0.59 Absolute Eosinophils 0.09 Absolute Basophils 0.07 PT 10.4 INR 1.0 APTT 24.6 Sodium 144 Potassium 4.2 Chloride 106 Carbon Dioxide 32.7 H Anion Gap 5.3 BUN 18 Creatinine 1.3 Est GFR (CKD-EPI 2020) 59.10 Glucose 111 H Calcium 9.3 Magnesium 1.6 L Total Bilirubin 0.89 AST 21 ALT 25 Alkaline Phosphatase 111 Troponin I 58 Cancelled NT-Pro-B Natriuret Pep 4561 H Total Protein 7.9 Albumin 3.8 Lipase 89 H TSH 9.82 H Free T4 0.82 COVID-19 Source Nasopharynx SARS-CoV-2 (PCR) Negative Influenza Type A (PCR) Negative Influenza Type B (PCR) Negative RSV (PCR) Negative Last Vital Signs Temp 36.8 C 05/03/24 01:35 Pulse 43 L 05/03/24 02:50 Resp 18 05/03/24 02:50 BP 139/73 05/03/24 02:46 Pulse Ox 94 05/03/24 02:50 Time Spent Time spent with Patient: >75 minutes Time was spent: preparing to see the patient(eg.review tests), obtaining and/or reviewing separately otained hiistory, ordering medications,tests, procedures, referring, communicating with other health lawn care worker, indepentently interpreting results, counseling the patient and care coordination
[2024-05-03 03:40] LABS: Troponin I 50 ng/L (<or=76)
[2024-05-03 07:50] LABS: Magnesium 2.2 mg/dL (1.8-2.4)
[2024-05-03 07:58] LABS: Troponin I 47 ng/L (<or=76)
--- NOTE | 2024-05-03 15:02 | W.PC.ACHO ---
Registration Status: Primary Language: Preferred Language: ED Information & Data Chief Complaint GenMedical 05/03/24 01:49 Triage Note snow blow driveway, felt ok, 05/03/24 01:35 tonight started feeling light headed and tingling in hands, chest and back felt funny, felt short of breath, has not felt good for about a week Most Recent Vital Signs Temperature 36.2 C L 05/03/24 08:35 Temperature Source Oral 05/03/24 08:35 Pulse 52 L 05/03/24 12:50 Pulse 90 05/03/24 12:50 Respiratory Rate 21 05/03/24 12:50 Respiratory Effort Normal, Non-Labored 05/03/24 01:47 Respiratory Depth Normal 05/03/24 01:47 Respiratory Pattern Normal 05/03/24 01:47 Blood Pressure 160/107 H 05/03/24 12:02 Blood Pressure Mean 122 05/03/24 12:02 Blood Pressure Position Supine 05/03/24 01:35 Pulse Oximetry 92 05/03/24 12:50 Oxygen Delivery Method Room Air 05/03/24 01:35 Oxygen Flow Rate 0 05/03/24 01:35 Pain Level 0 05/03/24 08:35 Comment no pain, just feels funny 05/03/24 01:35 Allergies No Known Allergies Allergy (Unverified 05/03/24 01:44) Precautions Isolation Standard precaution 05/03/24 01:42 IV IV Catheter Type [Right Peripheral IV Antecubital] IV Catheter Gauge [Right 18 Antecubital] Diet Orders Category Date Time Status Heart Healthy Eating [DIET] Nutrition 05/03/24 Dinner Active Diagnostics 05/03/24 05/03/24 05/03/24 Range/Units 07:33 03:17 03:00 WBC (4.4-10.8) 10^3/uL RBC (4.36-5.78) 10^6/uL Hgb (13.5-17.5) g/dL Hct (40.0-50.0) % MCV (80-95) fL MCH (27.0-33.0) pg MCHC (32.0-36.0) % RDW (11.8-14.1) % Plt Count (130-400) 10^3/uL MPV (8.0-11.0) fL Immature Gran % % Neutrophils % % Lymphocytes % % Monocytes % % Eosinophils % % Basophils % % Nucleated RBC % (0.0-0.3) % Absolute Neutrophils (1.2-6.7) 10^3/uL Absolute Lymphocytes (1.2-3.4) 10^3/uL Absolute Monocytes (0.1-0.8) 10^3/uL Absolute Eosinophils (0.0-0.7) 10^3/uL Absolute Basophils (0.0-0.2) 10^3/uL PT (9.1-11.1) sec INR (0.9-1.1) APTT (20.6-30.2) sec Sodium (136-145) mmol/L Potassium (3.5-5.1) mmol/L Chloride (98-107) mmol/L Carbon Dioxide (21.0-32.0) mmol/L Anion Gap (3-11) mmol/L BUN (7-18) mg/dL Creatinine (0.70-1.30) mg/dL Est GFR (CKD-EPI 2020) (mL/min/1.73m2) Glucose (74-106) mg/dL Calcium (8.5-10.1) mg/dL Magnesium 2.2 (1.8-2.4) mg/dL Total Bilirubin (0.2-1.0) mg/dL AST (15-37) U/L ALT (16-63) U/L Alkaline Phosphatase (46-116) U/L Troponin I 47 50 Cancelled (<or=76) ng/L NT-Pro-B Natriuret Pep (<300) pg/mL Total Protein (6.4-8.2) g/dL Albumin (3.4-5.0) g/dL Lipase (<78) U/L TSH (0.36-3.74) uIU/mL Free T4 (0.76-1.46) ng/dL COVID-19 Source SARS-CoV-2 (PCR) (Negative) Influenza Type A (PCR) (Negative) Influenza Type B (PCR) (Negative) RSV (PCR) (Negative) 05/03/24 05/03/24 Range/Units 02:10 01:45 WBC 8.51 (4.4-10.8) 10^3/uL RBC 4.80 (4.36-5.78) 10^6/uL Hgb 15.8 (13.5-17.5) g/dL Hct 48.2 (40.0-50.0) % MCV 100 H (80-95) fL MCH 32.9 (27.0-33.0) pg MCHC 32.8 (32.0-36.0) % RDW 12.5 (11.8-14.1) % Plt Count 202 (130-400) 10^3/uL MPV 11.6 H (8.0-11.0) fL Immature Gran % 0.2 % Neutrophils % 70.1 % Lymphocytes % 20.9 % Monocytes % 6.9 % Eosinophils % 1.1 % Basophils % 0.8 % Nucleated RBC % 0.0 (0.0-0.3) % Absolute Neutrophils 5.96 (1.2-6.7) 10^3/uL Absolute Lymphocytes 1.78 (1.2-3.4) 10^3/uL Absolute Monocytes 0.59 (0.1-0.8) 10^3/uL Absolute Eosinophils 0.09 (0.0-0.7) 10^3/uL Absolute Basophils 0.07 (0.0-0.2) 10^3/uL PT 10.4 (9.1-11.1) sec INR 1.0 (0.9-1.1) APTT 24.6 (20.6-30.2) sec Sodium 144 (136-145) mmol/L Potassium 4.2 (3.5-5.1) mmol/L Chloride 106 (98-107) mmol/L Carbon Dioxide 32.7 H (21.0-32.0) mmol/L Anion Gap 5.3 (3-11) mmol/L BUN 18 (7-18) mg/dL Creatinine 1.3 (0.70-1.30) mg/dL Est GFR (CKD-EPI 2020) 59.10 (mL/min/1.73m2) Glucose 111 H (74-106) mg/dL Calcium 9.3 (8.5-10.1) mg/dL Magnesium 1.6 L (1.8-2.4) mg/dL Total Bilirubin 0.89 (0.2-1.0) mg/dL AST 21 (15-37) U/L ALT 25 (16-63) U/L Alkaline Phosphatase 111 (46-116) U/L Troponin I 58 (<or=76) ng/L NT-Pro-B Natriuret Pep 4561 H (<300) pg/mL Total Protein 7.9 (6.4-8.2) g/dL Albumin 3.8 (3.4-5.0) g/dL Lipase 89 H (<78) U/L TSH 9.82 H (0.36-3.74) uIU/mL Free T4 0.82 (0.76-1.46) ng/dL COVID-19 Source Nasopharynx SARS-CoV-2 (PCR) Negative (Negative) Influenza Type A (PCR) Negative (Negative) Influenza Type B (PCR) Negative (Negative) RSV (PCR) Negative (Negative) Intake and Output - 24 Hour Total 05/03/24 01:33 thru 05/03/24 01:35 Weight 127.006 kg Falls Risk Assessment History of Falls No History 05/03/24 01:46 Contributing Factors No Factors 05/03/24 01:46 Ambulatory Aids Independent 05/03/24 01:46 Tubes/Lines None 05/03/24 01:46 Gait Evaluation No gait disturbance 05/03/24 01:46 Cognition No cognitive impairment 05/03/24 01:46 Fall Total Score 0 05/03/24 01:46 Level of Risk Standard/Low Risk 05/03/24 01:46 Problems (Last Reviewed 05/03/24 @ 03:34 by Bryan Lewis) Elevated TSH (Chronic) Hypomagnesemia (Acute) Sick sinus syndrome (Chronic 06/13/13) 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 Information / Comments: Not gone to see doctor in past 10 years. Current smoker. Light headed and tingling arm yesterday. Awaiting bed in Cardiac Unit at [facility]. A & O, walks independently. No longer NPO. Severe ectopy, PACs PVCs rtavis to 40 BP 140s-150s, 02 sat 94-98 in Right hand. Left hand does not read accurately. Report received from: Jammie DOMINGUEZ RN reviewed with Luna at this time.
--- NOTE | 2024-05-03 16:18 | INITIAL_ITS ---
Date of service: 05/03/24 Time of Service: 16:18 Care Management Initial Assmt Initial Assessment Reason for Hospitalization: Sick sinus syndrome Functional Status/Living Situation Patient Presentation: Leander was sitting up in his chair when CM met with him. Per report, he has been accepted at [facility] for transfer, pending bed availability; he expressed understanding of this plan. He stated that his mailing address is [place], but he physically lives in [place] [facility], in a two story home. 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 He stated that he usually works from about midnight to 7am. He lives alone, but has supportive family in the area, including his sister, Camille, who he identified as his primary support. He does not have advanced directives filled out currently, but reported that he would like to name his sister, Camille, his HCA; CM offered to support him with filling out his advanced directives, if time allows before he is transferred. Leander stated that he does not anticipate the need for additional community services at this time. CM will continue to follow. Town of Residence: [place] [place] Resides with: Alone Significant Other/Family: Local Natural Supports: SisterCamille Employment Status: Employed Instrumental Activities of Daily Living (ADLs): Independent Medications Medication Management: No Issues/Barriers identified Advance Directives Advance Directives: Do you have an Advance Directive: Y 06/03/13 19:00 AD On File at [facility]: N 06/11/22 13:52 Date Asked 08/17/23 08/17/23 09:44 AD Date Reviewed COLST On File at [facility] COLST Date Scanned Code Status Resuscitation Status DNR Insurance Coverage/Financial Issues Insurance: [employer] MCR replacement Care Team Visit Care Team Role Provider Type Frankie Sheehan MD Primary Care Provider [facility] STAFF PHYSICIAN Jammie Ross MD Emergency Provider [facility] STAFF PHYSICIAN Bryan Lewis Admit Provider NON-[facility] STAFF PHYSICIAN Attending Provider Discharge Potential Discharge Needs: Other (transfer to tertiary facility ) Anticipated Barriers to Discharge: Bed availability Patient/Family Education Needs: Review discharge instructions, discuss Ask Me Three Transportation: EMS Plan: Anticipate Leander will transfer to [facility] for further management, once a bed becomes available. He will transport via EMS, coordinated by the RN broommaking supervisor. He will follow up with his PCP and discharge plan of care. CM will continue to follow. Social Determinants of Health Screening Social Determinants of Health last assessed: 05/03/24 Will the Patient Participate in the Screening?: Yes Do you worry about having a steady place to live?: no Problems where you live: no known problems In the past 12 months, have you had to go without electric, gas, oil or water in your home?: no Have you or anyone in your house had to go without enough food to eat?: no Has lack of transportation kept you from medical appointments or from doing things needed for daily living?: no Has anyone in your life made you feel unsafe or unsupported?: no How hard is it for you to pay for the very basics like food, housing, medical care, and heating? Would you say it is:: Not hard at all Do you want help finding or keeping work or a job?: I do not need or want help If for any reason you need help with day-to-day activities such as bathing, preparing meals, shopping, managing finances, etc., do you get the help you need?: I don?t need any help How often do you feel lonely or isolated from those around you?: Never Do you speak a language other than Thai at home?: No Does the patient want assistance with any of the above?: No PFSH All Active Problems (Updated 05/03/24 @ 04:00 by JOEY THAKKAR) Pacemaker at end of battery life (Acute) Chest pain (Acute) Elevated TSH (Chronic) Hypomagnesemia (Acute) Acute exacerbation of chronic low back pain (Acute) Chronic low back pain (Chronic) Sick sinus syndrome (Chronic 06/13/13) Status post placement of cardiac pacemaker (Chronic 06/14/13) Severe back pain (Acute) Radiculopathy due to lumbar intervertebral disc disorder (Acute) Social History Smoking/Tobacco Use Status: Former Tobacco Use Smoking risk assessment performed?: Yes Alcohol Intake: former Drug use: Never Substance use type: does not use Housing: house Do you feel safe at home: Yes Do you feel safe in your relationship?: Yes
--- NOTE | 2024-05-03 16:18 | W.PM.DS.N ---
Date of service: 05/03/24 Time of Service: 16:18 DS: Diagnosis Discharge Diagnosis (1) Sick sinus syndrome: Status: Chronic (2) Status post placement of cardiac pacemaker: Status: Chronic (3) Hypomagnesemia: Status: Acute (4) Elevated TSH: Status: Chronic Discharge Plan Disposition Patient Disposition: Transfer-Acute Inpatient Care Specific Acute Inpt Facility: [facility] Condition: Fair Discharge Details Reason For Visit: Sick sinus syndrome with failing pacemaker Admit Date/Time: 05/03/24 03:46 Admit Provider: Bryan Lewis Attending Provider: Bryan Lewis Primary Care Provider: Frankie Sheehan Hospital Course Hospital Course: Patient initially presented to the emergency department with palpitations and tingling in his hands and during workup in the emergency department was found to have sick sinus syndrome with malfunctioning pacemaker that was placed in May 2013. While in the emergency department [facility] cardiology was consulted and accepted patient for transfer. While hospitalized patient was monitored on telemetry and had pace maker pads placed but were not necessary. Patient was noted as having nonsustained V. tach but was asymptomatic. Ultimately, patient was stable during hospitalization at [facility] and was determined to be stable for discharge to [facility] for sick sinus syndrome and presumed new pacemaker placement. Home Meds and New Rx's Prescriptions: No Action acetaminophen 325 mg Tablet 650 mg PO QID Qty: 0 0RF ibuprofen 600 mg tablet 600 mg PO Q6H PRNQty: 60 0RF Rx Instructions: take with food Discharge Instructions Activity:: Activity as Tolerated Equipment/Supplies:: No Equipment Needed Diet:: As Tolerated Discharge Orders Discharge Orders: Discharge Order (Routine); Ordered 05/03/24 Ordered By: Colton Henry DS: Summary Time Spent with Patient providing and/or coordinating discharge services: Greater than 30 minutes Status at Discharge Functional status at discharge: independent ambulation Overall status at discharge: patient is back to baseline Mental Status: mental status grossly normal Speech and Movement: speech and movement normal Mood: congruent mood Affect: normal affect Quality:SDOH Health Related Social Needs: No Data to Display Exam Narrative Exam Narrative: Well-appearing older gentleman laying in bed in no acute distress, ANO x 4, heart irregularly irregular with no rubs murmurs or gallops, lungs clear to auscultation bilaterally, abdomen soft, nontender, nondistended Psych Mental Status: mental status grossly normal Speech and Movement: speech and movement normal Mood: congruent mood Affect: normal affect DS: Data Vitals/I&O Vitals and I&O: Vital Signs Temperature 97.2 F L 05/03/24 08:35 Temperature Source Oral 05/03/24 08:35 Pulse 73 05/03/24 15:30 Pulse 93 H 05/03/24 15:30 Respiratory Rate 12 05/03/24 15:30 Respiratory Effort Normal, Non-Labored 05/03/24 01:47 Respiratory Depth Normal 05/03/24 01:47 Respiratory Pattern Normal 05/03/24 01:47 Blood Pressure 155/93 H 05/03/24 15:21 Blood Pressure Mean 111 05/03/24 15:21 Blood Pressure Position Supine 05/03/24 01:35 Pulse Oximetry 94 05/03/24 15:30 Oxygen Delivery Method Room Air 05/03/24 01:35 Oxygen Flow Rate 0 05/03/24 01:35 Pain Level 0 05/03/24 14:58 Comment no pain, just feels funny 05/03/24 01:35 Intake & Output 05/02/24 05/03/24 05/03/24 17:59 05:59 17:59 Weight 280 lb Data Completed and Pending Labs on day of discharge: Labs from last 24 hours 05/03/24 05/03/24 05/03/24 07:33 03:17 03:00 WBC RBC Hgb Hct MCV MCH MCHC RDW Plt Count MPV Immature Gran % Neutrophils % Lymphocytes % Monocytes % Eosinophils % Basophils % Nucleated RBC % Absolute Neutrophils Absolute Lymphocytes Absolute Monocytes Absolute Eosinophils Absolute Basophils PT INR APTT Sodium Potassium Chloride Carbon Dioxide Anion Gap BUN Creatinine Est GFR (CKD-EPI 2020) Glucose Calcium Magnesium 2.2 Total Bilirubin AST ALT Alkaline Phosphatase Troponin I 47 50 Cancelled NT-Pro-B Natriuret Pep Total Protein Albumin Lipase TSH Free T4 COVID-19 Source SARS-CoV-2 (PCR) Influenza Type A (PCR) Influenza Type B (PCR) RSV (PCR) 05/03/24 05/03/24 02:10 01:45 WBC 8.51 RBC 4.80 Hgb 15.8 Hct 48.2 MCV 100 H MCH 32.9 MCHC 32.8 RDW 12.5 Plt Count 202 MPV 11.6 H Immature Gran % 0.2 Neutrophils % 70.1 Lymphocytes % 20.9 Monocytes % 6.9 Eosinophils % 1.1 Basophils % 0.8 Nucleated RBC % 0.0 Absolute Neutrophils 5.96 Absolute Lymphocytes 1.78 Absolute Monocytes 0.59 Absolute Eosinophils 0.09 Absolute Basophils 0.07 PT 10.4 INR 1.0 APTT 24.6 Sodium 144 Potassium 4.2 Chloride 106 Carbon Dioxide 32.7 H Anion Gap 5.3 BUN 18 Creatinine 1.3 Est GFR (CKD-EPI 2020) 59.10 Glucose 111 H Calcium 9.3 Magnesium 1.6 L Total Bilirubin 0.89 AST 21 ALT 25 Alkaline Phosphatase 111 Troponin I 58 NT-Pro-B Natriuret Pep 4561 H Total Protein 7.9 Albumin 3.8 Lipase 89 H TSH 9.82 H Free T4 0.82 COVID-19 Source Nasopharynx SARS-CoV-2 (PCR) Negative Influenza Type A (PCR) Negative Influenza Type B (PCR) Negative RSV (PCR) Negative PFSH All Active Problems (Updated 05/03/24 @ 04:00 by JOEY THAKKAR) Pacemaker at end of battery life (Acute) Chest pain (Acute) Elevated TSH (Chronic) Hypomagnesemia (Acute) Acute exacerbation of chronic low back pain (Acute) Chronic low back pain (Chronic) Sick sinus syndrome (Chronic 06/13/13) Status post placement of cardiac pacemaker (Chronic 06/14/13) Severe back pain (Acute) Radiculopathy due to lumbar intervertebral disc disorder (Acute) Social History Smoking/Tobacco Use Status: Former Tobacco Use Smoking risk assessment performed?: Yes Alcohol Intake: former Drug use: Never Substance use type: does not use Housing: house Do you feel safe at home: Yes Do you feel safe in your relationship?: Yes Time Spent with Patient Time Spent with Patient: <45 minutes Time was spent: preparing to see the patient(eg.review tests), obtaining and/or reviewing separately otained hiistory, ordering medications,tests, procedures, referring, communicating with other health customer care coordinator, indepentently interpreting results, counseling the patient and care coordination
== END 2024-05-03 19:12 | disposition short-term general hospital (02) | DRG 315 ==
LOC: ER 03:47 → EDHOLD 03:59 → ICU 15:15
PROVIDERS: Admitting Provider Family Medicine; Emergency Provider Student in an Organized Health Care Education/Training Program; PCP Internal Medicine; Visit Provider Family Medicine
DX: T82.198A Other mechanical complication of other cardiac electronic device, initial encounter (principal); I47.29 Other ventricular tachycardia; I49.5 Sick sinus syndrome; E83.42 Hypomagnesemia; E03.9 Hypothyroidism, unspecified; Z66 Do not resuscitate; M51.16 Intervertebral disc disorders with radiculopathy, lumbar region; E66.01 Morbid (severe) obesity due to excess calories; Z68.35 Body mass index [BMI] 35.0-35.9, adult; Z87.891 Personal history of nicotine dependence
CPT/HCPCS: 00123; 36415; 80053; 83690; 87637; 93005; 96365; 99285; 71046; 83735; 83880; 84439; 84443; 84484; 85025; 85610; 85730; 93010; 99236; J3475

== ENCOUNTER 2024-05-10 10:38 | Emergency (ER) | payer MEDICARE, SELFPAY ==
--- NOTE | 2024-05-10 10:45 | RT.EKG_ITS ---
APPROVED REPORT Exam: Resting ECG Reason for Exam: low hr Patient Location: E HR:76 bpm ECG Measurements Heart Rate 76 AXIS WV 273 P 34 QRSd 126 QRS -62 QT 385 T 117 QTc 433 Conclusion Atrial-paced complexes...other complexes also detected Ventricular bigeminy...bigeminy string>4 w/ V complexes Prolonged WV interval...WV >220, V-rate 50- 90 LVH with IVCD, LAD and secondary repol abnrm...multi-criteria, wQRSd, abnr ST-T
[2024-05-10 10:50] VITALS: BP 122/71; PULSE 61; RESP 16; TEMP 36.8; O2SAT 94
--- OUTSIDE RECORDS SUMMARY | 2024-05-10 10:58 | XMS_ITS | Encounter Summary ---
Author Organization [facility] Address [facility] [place] [address] Care Team Providers Care Manager Portable Name Role Phone None Primary Care Provider Unavailabl e Encounter Details Date Type Department Care Team (Late st Contact Info) Description 05/03/2024 Telephone Cardiology at [address] [place] [id number] Zahida Disla MD [facility] [place] [address] Social History Tobacco Use Types Packs/Day Years Used Date Smoking Tobacco: Unknown Alcohol Use Standard Drinks/Week Comments Not Currently 0 (1 standard drink = 0.6 oz pur e alcohol) [facility] Utilities Answer Date Recorded In the past 12 months has th e electric, gas, oil, or water company threatened to shut off services in your home? No 05/04/2024 Hunger Vital Sign Answer Date Recorded Within the past 12 months, y ou worried that your food would run out before you got the money to buy more. Never true 05/04/19 25 Within the past 12 months, t he food you bought just didn't last and you didn't have money to get more. Never true 05/04/2024 PRAPARE - Transportation Answer Date Re corded In the past 12 months, has l ack of transportation kept you from medical appointments or from getting medications? No 07/2024 In the past 12 months, has l ack of transportation kept you from meetings, work, or from getting things needed for daily living? No 05/04/2024 Housing Stability Vital Sign Answer Roman e Recorded In the last 12 months, was t here a time when you were not able to pay the mortgage or rent on time? No 05/04/2024 Number of Times Moved in the Last Year Not on fi le 05/04/2024 At any time in the past 12 m ont, were you homeless or living in a custodial (including now)? No 05/04/2024 IPV Inpatient Questions Answer Date Recorded Does Anyone Try to Keep You From Having Contact with Others or Doing Things Outside Your Home? no 05/04/2024 Feels Threatened by Someone no 07/2024 Feels Unsafe at Home or Work/School no 05/04/2024 Physical Signs of Abuse Present no 05/04/2024 Sex and Gender Information Value Date Recorded Sex Assigned at Not on file Gender Identity Not on file Sexual Orientation Not on file documented as of this encounter Miscellaneous Notes * Telephone Encounter - Zahida Disla MD - 05/03/2024 2:32 AM EST Images from the original note were not included. Initial Contact Date: 05/03/24 Patient Location: [facility] HPI: Mr. 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 Recommendations: I am concerned that 's pacemaker is showing the EOS indication. I think this typically means that replacement must happen urgently. Once the DEVIN indication is present I believe it typically means the device has 3-6 months for replacement. I worry that at this time the patient's pacemaker isneeding replacement. I accepted the patient to for the floor service. I requested that the OSH reach back out to the EP service in the morning to ensure that they agree with my evaluation. Patient's ECG shows signficant PVC and bigeminy which may be the cause of his symptoms. Most of hislabs are yet to return. I recommend Mag and monitoring for now. Could consider a BB once his pacemaker is interrogated by us but I would be hesitant to push a BB now with EOS indication on and unclear knowledge of if PPM is functional at this time. Above recommendations were based on my discussion with OSH; I have not personally interviewed or examined this patient. Advised to call the transfer center back with any changes in the patient condition. Zahida Disla MD Enhanced Environmental Operator documented in this encounter Plan of Treatment Not on file documented as of this encounter Visit Diagnoses Not on filedocumented in this encounter Care Teams Manager Portable Relationship Specialty Start Date End Date None None PCP - General 04/08/24 documented as of this encounter
--- OUTSIDE RECORDS SUMMARY | 2024-05-10 10:58 | XMS_ITS | Encounter Summary ---
Author Organization [facility] Address [address] [place] [address] Care Team Providers Care Magnetic Prospector Name Role Phone Unavailable Primary Care Provider Unavailabl e Encounter Details Date Type Department Care Team (Late st Contact Info) Description 04/08/2002 Results Only [facility] [address] [place] [address] Ant Shin, [address] [facility] [address] [place], [place] [id number] Social History Tobacco Use Types Packs/Day Years [...] Sr, 09/26/25; . ??The MRN originally utilized ([id number]) belongs to Deidra Medina Jr, 51. ??The case was re-accessioned on 04/18/02 as [id number] under the correct MRN. ??Charges have been [...] peeling away from the underlying tissue. ??Two environmental marketing representative sections are submitted as (A1) and (A2). (Dr. Garcia)/indra End of Report [facility] 04/08/2002 04/11/2002 15: 17 EST us Ant Shin DO PATHOLOGY ORDERABLES Fi nal Result [facility] [address] [place] [address] documented in this encounter Visit Diagnoses Not on filedocumented in this encounter
--- OUTSIDE RECORDS SUMMARY | 2024-05-10 10:58 | XMS_ITS | Encounter Summary ---
Author Organization [facility] [place] [address] Care Team Providers Care Post Closer Name Role Phone None Primary Care Provider Unavailabl e Reason for Visit * Auth/Cert (Routine) Specialty Diagnoses / Procedures Referred By Lidia villafana Referred To Contact Diagnoses Pacemaker generator end of life Chest Pain Procedures EMERGENCY OBSVO Abdirahman Serrano MD [facility] [place] [address] [facility] Referral ID Status Reason Start Date Expiration Date Visits Re quested Visits Authorized [id number] 1 1 Encounter Details Date Type Department Care Team (Latest Contact Info) Description 05/03/2024 8:41 PM EST - 05/05/2024 3:09 PM EST Hospital Encounter Heart and Vascular Unit Level 3 [place] [address] Marianela Vaz MD [facility] [place] [address] Abdirahman Serrano MD [facility] [place] [address] Puneet Miranda MD [facility] [place] [place] [address] Pacemaker generator end of life; Chest pain, unspecified type; Hypertension, unspecified type Discharge Disposition: Home Social History Tobacco Use Types Packs/Day Years Used Date Smoking Tobacco: Unknown Tobacco Cessation:Counseling Given: No Alcohol Use Standard Drinks/Week Comments Not Currently 0 (1 standard drink = 0.6 oz pur e alcohol) [facility] Utilities Answer Date Recorded In the past [...] any time in the past 12 [facility], were you homeless or living in a longterm (including now)? No 05/04/2024 DH IPV Inpatient Questions Answer Date Recorded Does [...] on file documented as of this encounter Last Filed Vital Signs Vital Sign Reading Time Taken Comments Blood Pressure 112/59 05/05/2024 12:05 PM EST Pulse 73 05/05/2024 12:05 PM EST Temperature 36.7 ??C (98.1 ??F) 05/05/2024 12:[address] Respiratory Rate 18 05/05/2024 12:05 PM EST Oxygen Saturation 93% 05/05/2024 12:05 PM EST Inhaled Oxygen Concentration - - Weight 118.4 kg (261 lb) 05/05/2024 6:00 AM EST Height 182.9 cm (6') 05/03/2024 8:55 PM EST Body Mass Index 35.4 05/03/2024 8:55 PM EST documented in this encounter Discharge Summaries * Puneet Miranda MD - 05/05/2024 2:30 PM EST Discharge Summary Patient Name: Deidra Medina Jr. Patient Age: 68 y.o. Language: Ukrainian Race: White Ethnicity: Not nor Admit date: 05/03/2024 Discharge date and time: 05/05/2024 3:04 PM Attending Physician: Puneet Miranda MD Discharge Physician: Puneet Miranda MD Follow-up Recommendations for Providers: - Establish care with a PCP. - Started Low dose losartan for HTN. Keep a BP log at home and present to PCP appointment. Inpatient Provider Contact Information: Puneet Miranda MD For questions regarding this document or issues relating to this hospitalization on the Medical Service, please contact your inpatient physician through the [facility] Car Body Designer . Issues afterhours and on weekends will be handled by the Hospitalist staff on-call. Discharge Diagnoses (Hospital Problems) and Secondary Diagnoses (Chronic Problems): Active Hospital Problems Diagnosis Pacemaker generator end of life Resolved Hospital Problems No resolved problems to display. Active Non-Hospital Problems Diagnosis Pacemaker History of Presentation obtained from the admission h&p: Deidra Medina Jr. is a 68 y.o. male with medical history significant for sinus node dysfunction (had Medtronic dual chamber pacemaker placed ~11 years ago), not on any home meds, presented to [facility] ED with complaints of feeling unwell for several days, mainly having malaise and chest discomfort radiating to his back. He had basic workup on OSH ED, including EKG that showed sinus rhythm with ventricular bigeminy. Labs were done and overall were unremarkable besides mild hypoMag. His Pacemaker got interrogated, showing 2 runs of vtach >13seconds. Given EOS message of 2.77 V EOS, replace device now (CHENILLE MACHINE OPERATOR on Sep 2023 was 2.8 V), [facility] director of claims was contacted and documented: - between Feb 2023 and now has had ~8 hours of AT/AF - 14 episodes of VT/NSVT the longest being 13 seconds, unclear when - seems VT therapies is off? I am concerned that 's pacemaker is [...] if PPM is functional at this time. Therefore, the transfer was initiated and the patient arrived to [facility] Cardiology unit this evening. Hospital Course: # Sinus node dysfunction (had Medtronic dual chamber pacemaker placed ~11 years ago) - now with EOSmessage that prompted trasnfer to [facility] Caridology service for ER evlaution and likely PPM replacement # Significant PVCs and Bigeminy # Chronic medical issues: -Untreated hypertension -Obesity BMI>35 presented to the ED with malaise and chest discomfort for the past six months [facility]emaker was noted to have reached CHENILLE MACHINE OPERATOR on 10/16/23. Pateint went for right-sided Medtronic dual-chamber pacemaker generator replacement on 05/04/24. The procedure went successfully. Patient was monitored in telemetry given the presence of WCTs and was deemed stable. - Establish care with a PCP. - Started Low dose losartan for HTN. Keep a BP log at home and present to PCP appointment. Vital Signs at Discharge: BP: 112/59, Heart Rate: 73, Temp: 36.7 ??C (98.1 ??F), Resp: 18, BMI (Calculated): 35.94 Height: 182.9 cm (6') (05/03/242054) Weight: 118.4 kg (261 lb) (05/05/24 06) Functional and Cognitive Status: alert and oriented. Stable for discharge. Important Studies and Lab Data: Labs: Last wbc, hgb, hct plt Recent Labs 05/04/24323 WBC 7.98 HGB 15.0 HCT 45.6 Last 3 wbc, hgb, hct plt Recent Labs 05/04/2432305/03/242150 WBC 7.98 7.39 HGB 15.0 15.3 HCT 45.6 44.8 PLATELET 198 190 Last 3 Lytes Recent Labs 05/03/242150 NA 138 K 3.9 CL 104 CO2 24 BUN 17 CREATININE 1.09 Last 3 LFTs No results for input(s): AST, ALT, ALKPHOS, BILITOT, BILIDIR in the last 7068hours. Last Ca, Mg, Phos Recent Labs 05/03/242150 CALCIUM 9.1 MAGNESIUM 0.85 Last 3 Coags Recent Labs 05/03/242150 PT 12.7* INR 1.1 PTT 29 Last 3 ProBNP, Trop, CK No results for input(s): CK, TROPONINT, PROBNP in the last 168 hours. Last 3 TFT Recent Labs 05/03/242150 TSH 8.98* Last 3 Lipids No results for input(s): CHLPL, HDL, LDLCHOL, LDLDIRECT, TRIG in the last 7068 hours. Last 3 HgbA1C No results for input(s): HA1C in the last 7068 hours. Last CRP, SEDRATENo results for input(s): CRP, SEDRATE in the last 7068 hours. Last 3 CBC Recent Labs 05/04/2432305/03/242150 WBC 7.98 7.39 Discharge Conditions/Prognosis: stable Discharge to: home Updated Allergies/ADRs: Allergies Allergen Reactions Cis Free Text Allergy muscle relaxants. Immunizations Given this Hospitalization: There is no immunization history on file for this patient. Discharge Medications: Your Medications New Medications Dose Details losartan 25 mg tablet Commonly known as: Cozaar Take 0.5 tablets by mouth daily. 12.5 mg Quantity: 90 tablet Refills: 3 Smoking Status at Discharge: Social History Tobacco Use Smoking Status Unknown Smokeless Tobacco Not on file Instructions Given to Patient at Discharge: Patient Instructions Call your doctor if: Chest pain, shortness of breath, pain or swelling in legs occurs. If you have non-emergent questions between now and the time of your follow up appointments: During 8am-5pm Thursday through Thursday call [phone] to speak with a nurse in the cardiology clinic All other times call [phone] and ask to speak to the slat basket maker helper sap solutions architect. Follow up Appointments: PCP None None . Please establish care with a primary care physician. Inform them that you are beingdischarged from the hospital and they should be able to provide with you an appointment to be seen within 1-2 weeks. Keep a blood pressure log of readings at home and present to your PCP. General Instructions None Future Appointments and Orders Future Orders Complete By Expires Durable Medical Equipment Order [EQ148 Custom] As directed Process Instructions: Scheduling Instructions: Questions: Name/Description of requested item: Blood pressure kit Size requested: Vendor Name/Contact information: Discharge References/Attachments None > 30 minutes spend on day of discharge chart review, patient counseling, and documentation. Puneet Miranda MD 05/05/2024 documented in this encounter Discharge Instructions * Patient Instructions* Puneet Miranda MD - 05/05/2024 2:55 PM EST Call your doctor if: Chest pain, shortness of breath, pain or swelling in legs occurs. If you have non-emergent questions between now and the time of your follow up appointments: During 8am-5pm Thursday through Thursday call [phone] to speak with a nurse in the cardiology clinic All other times call [phone] and ask to speak to the slat basket maker helper sap solutions architect. Follow up Appointments: PCP None None . Please establish care with a primary care physician. Inform them that you are beingdischarged from the hospital and they should be able to provide with you an appointment to be seen within 1-2 weeks. Keep a blood pressure log of readings at home and present to your PCP. documented in this encounter Medications at Time of Discharge Medication Sig Dispensed Refills Start Date End Date losartan (Cozaar) 25 mg tablet Take 0.5 tablets by mouth daily. 90 tablet 3 05/05/2024 documented as of this encounter Progress Notes * Puneet Miranda MD - 05/04/2024 6:15 AM EST Images from the original note were not included. Heart and Vascular [place] [facility] CV HOSPITALIST 1 - [facility] DAILY PROGRESS NOTE Page [phone] to reach a provider 20/10 Admit Date: 05/03/2024 Encounter Date May 04, 2024 Anticipated Discharge Date: 05/05/2024 Hospital Day: 1 Active Hospital Problems Diagnosis Pacemaker generator end of life Resolved Hospital Problems No resolved problems to display. 24 Hour Events/Subjective: - NAEON - NPO anticipating EP procedure today. Medications: Scheduled Meds: sodium chloride 0.9 % (flush) 5 mL Intravenous BID amLODIPine 2.5 mg Oral Daily Continuous Infusions: PRN Meds:.sodium chloride 0.9 % (flush), lidocaine, melatonin, acetaminophen Objective: Last value Range last 24 hrs Temp: 36.8 ??C (98.3 ??F) Temp: [36.6 ??C (97.8 ??F)-36.8 ??C (98.3 ??F)] Heart Rate: 78 Heart Rate: [78-89] BP: 96/73 BP: (96-145)/(73-96) Resp: 16 Resp: [16-18] SpO2: 95 % SpO2: [93 %-97 %] Height: 182.9 cm (6') Weight: 119.8 kg (264 lb 1.6 oz) BMI (Calculated): 35.94 BMI Classification: Obese Admit weight: 120.2 kg Patient Vitals for the past 168 hrs: Weight 05/04/24 0642 119.8 kg (264 lb 1.6 oz) 05/03/242054 120.2 kg (265 lb) Intake/Output Summary (Last 24 hours) at 05/04/2024 0703 Last data filed at 05/04/2024 0400 Gross per 24 hour Intake 5 ml Output 0 ml Net 5 ml Physical Exam: General Appearance: No acute distress, lying in bed, Lungs: Clear to auscultation bilaterally. No wheezes/rhonchi/rales. No accessory muscle usage. Cardiac: regular rate and rhythm. No murmurs, rubs or gallops. Abdomen: Soft, non-tender, non-distended. Extremities: No edema. 2+ DP pulses. Neuro: Alert and oriented. Grossly non-focal. Conversant, moving all extremities. Skin: No rashes or lesions noted. Labs: Recent Labs 05/04/24 0324 05/03/242150 WBC 7.98 7.39 HGB 15.0 15.3 HCT 45.6 44.8 PLATELET 198 190 MCV 100.9* 98.2* Recent Labs 05/03/242150 NA 138 CL 104 CO2 24 K 3.9 MAGNESIUM 0.85 CALCIUM 9.1 BUN 17 CREATININE 1.09 Coags Recent Labs 05/03/242150 INR 1.1 PT 12.7* PTT 29 Cardiac Markers Recent Labs 05/03/242150 TROPONINTHS 27* Endocrine Recent Labs 05/03/242150 TSH 8.98* No results for input(s): CHLPL, TRIG, HDL, LDLCHOL, CHOLHDL in the last 168 hours. Recent Labs 05/03/24 2151 GLUCOSE 119 EKG:SR, 1st degree A-V block, Occasional ventricular-paced complexes, frequent PVCs Imaging: No results found for this visit on 05/03/24 (from the past 24 hour(s)). Assessment: Deidra Medina Jr. is a 68 y.o. male with a PMH of SND s/p PPM about 11 years ago here with concerns of possible EOS/ PPM dysfunction. # Sinus node dysfunction (had Medtronic dual chamber pacemaker placed ~11 years ago) - now with EOSmessage that prompted trasnfer to [facility] Caridology service for ER evlaution and likely PPM replacement # Significant PVCs and Bigeminy # Chronic medical issues: -Untreated hypertension -Obesity BMI>35 -NPO for EP evaluation and likely EP procedure today -the patient is not on any regular home meds - Started amlodipine at night for HTN. Diet: NPO diet (Give Meds) DVT Prophylaxis: SCD Code status: Attempt Cardiopulmonary Resuscitation - Inpatient Disposition: Discharge Location: AM-PAC Basic Mobility Raw Score: 24 PT: OT: PCP None None Puneet Miranda MD 05/04/2024 documented in this encounter H&P Notes * Abdirahman Serrano MD - 05/03/2024 9:19 PM EST Images from the original note were not included. CV Hospitalist Admission History & Physical Patient Name: Deidra Medina Jr. Primary Care Provider: None Admission Date: 05/03/2024 CHIEF COMPLAINT Transfer from [facility] ED for EP evaluation and likely a pacemaker replacement given EOS message HISTORY OF PRESENT ILLNESS Deidra Medina Jr. is a 68 y.o. male with medical history significant for sinus node dysfunction (had Medtronic dual chamber pacemaker placed ~11 years ago), not on any home meds, presented to [facility] ED with complaints of feeling unwell for several days, mainly having malaise and chest discomfort radiating to his back. He had basic workup on OSH ED, including EKG that showed sinus rhythm with ventricular bigeminy. Labs were done and overall were unremarkable besides mild hypoMag. His Pacemaker got interrogated, showing 2 runs of vtach >13seconds. Given EOS message of 2.77 V EOS, replace device now (CHENILLE MACHINE OPERATOR on Sep 2023 was 2.8 V), [facility] director of claims was contacted and documented: - between Feb 2023 and now has had ~8 hours of AT/AF - 14 episodes of VT/NSVT the longest being 13 seconds, unclear when - seems VT therapies is off? I am concerned that 's pacemaker is [...] if PPM is functional at this time. Therefore, the transfer was initiated and the patient arrived to [facility] Cardiology unit this evening. REVIEW OF SYSTEMS Pertinent positive as described above. All other systems reviewed and are either negative or at patient's chronic baseline. ALLERGIES: Allergies Allergen Reactions Cis Free Text Allergy muscle relaxants. MEDICAL/SURGICAL HISTORY: Patient Active Problem List Diagnosis Date Noted Pacemaker generator end of life 05/03/2024 No past surgical history on file. Family History: No family history on file. family history is not on file. Social History: Social History Social History Narrative Not on file reports that he does not currently use alcohol. HOME MEDICATIONS No medications prior to admission. CURRENT INPATIENT MEDICATIONS sodium chloride 0.9 % (flush) 5 mL Intravenous BID amLODIPine 2.5 mg Oral Daily Current Facility-Administered Medications: sodium chloride 0.9 % (flush) (BD PosiFlush Normal Saline 0.9) flush 5 mL, 5 mL, Intravenous, BID, Abdirahman Serrano MD sodium chloride 0.9 % (flush) (BD PosiFlush Normal Saline 0.9) flush 5-20 mL, 5- 20 mL, Intravenous,Q1 Min PRN, Abdirahman Serrano MD lidocaine (Xylocaine) 1% (10 mg/mL) injection 3 mg, 0.3 mL, Subcutaneous, Once PRN, Abdirahman Serrano MD melatonin tablet 3 mg, 3 mg, Oral, Nightly PRN, Abdirahman Serrano MD acetaminophen (Tylenol) tablet 650 mg, 650 mg, Oral, Q6H PRN, Abdirahman Serrano MD amLODIPine (Norvasc) tablet 2.5 mg, 2.5 mg, Oral, Daily, Abdirahman Serrano MD PHYSICAL EXAMINATION: Vitals: Temp: 36.6 ??C (97.9 ??F) BP: (!) 145/96 Heart Rate: 89 Resp: 18 SpO2: 93 % General: The patient is lying in bed, in no distress, able to speak in full sentences, appropriately engaging conversation HEENT: Atraumatic, symmetric face, no scleral icterus or inflammation Neck: Supple Cardiovascular: S1/S2 rate controlled, with intermittent extra beat Pulm: Breathing is unlabored, breath sounds are clear to auscultation Abd: Soft, benign, non-tender, non-distended, BS present in all 4 quadrants, no guarding or rebound. Extremities: Able to move all extremities, no pedal edemas Neuro: Conversant, alert and oriented x4, no facial asymmetry, grossly no focal deficits Skin: Warm and dry LABS: Recent Labs 05/03/24 2151 WBC 7.39 HGB 15.3 HCT 44.8 PLATELET 190 No results for input(s): NA, K, CL, CO2, BUN, CREATININE in the last 168 hours. No results for input(s): AST, ALT, ALKPHOS, BILITOT, BILIDIR in the last 168 hours. No results for input(s): CALCIUM, MAGNESIUM, PHOS in the last 168 hours. No results for input(s): INR, PT, PTT in the last 168 hours. No results for input(s): CK, TROPONINT in the last 168 hours. No results for input(s): POCGLU in the last 168 hours. Microbiology Results (Last 30 days) No results found for the last 720 hours. IMAGING No results found for this visit on 05/03/24. ASSESSMENT/PLAN: Deidra Medina Jr. is a 68 y.o. male that is being admitted to CV Hospitalist service under impression of: # Sinus node dysfunction (had Medtronic dual chamber pacemaker placed ~11 years ago) - now with EOSmessage that prompted trasnfer to [facility] Caridology service for ER evlaution and likely PPM replacement # Significant PVCs and Bigeminy # Chronic medical issues: -Untreated hypertension -Obesity BMI>35 Plan will be as follows: -The patient is being admitted to a floor/telemetry bed (Obs status) under CV Hospitalist service -telemetry monitoring -NPO after [place] for EP evaluation and likely pacemaker replacement -will closely monitor and replace his electrolytes -per Cardio fellow: Could consider a BB once his pacemaker is interrogated by us but I would be hesitant to push a BB now with EOS indication on and unclear knowledge of if PPM is functional at this time. -will start low dose amlodipine for his untreated HTN -the patient is not on any regular home meds Diet: NPO diet (Give Meds) Daily Healthy Menu Choices/Cardiac diet ([facility]-Diet) Current DVT: SCD, SCD Code status: Attempt Cardiopulmonary Resuscitation - Inpatient Disposition: TBD Abdirahman Serrano MD, MPH Hospital Medicine Pager: [phone] 05/03/2024 documented in this encounter Miscellaneous Notes * Plan of Care - Mario Carpenter RN - 05/05/2024 2:54 PM EST Pt belongings gathered and w/ patient. Wheelchair provided for transport to main gate. AVS reviewed, questions regarding new BP med losartan answered. No other health concerns from pt, d/c home via [place] [facility] medicaid services. Problem: Adult Inpatient Plan of Care Goal: Plan of Care Review Outcome: Outcome (s) achieved Goal: Patient-Specific Goal (Individualized) Outcome: Outcome (s) achieved Goal: Absence of Hospital-Acquired Illness or Injury Outcome: Outcome (s) achieved Goal: Optimal Comfort and Wellbeing Outcome: Outcome (s) achieved Goal: Readiness for Transition of Care Outcome: Outcome (s) achieved Problem: Chest Pain Goal: Resolution of Chest Pain Symptoms Outcome: Outcome (s) achieved Problem: Dysrhythmia Goal: Normalized Cardiac Rhythm Outcome: Outcome (s) achieved * Care Management - Natalia Alonso - 05/05/2024 2:49 PM ESTSummary: Discharge Ride Rod Tape Operator scheduled a discharge ride for patient with [facility] [employer][phone]. CHIEF PROJECTIONIST WILL FRAME CATCHER PATIENT AT MAIN ENTRANCE AT 3:15PM and bring patient to home address: [address]. Software Licensing Analyst's name is [employer]. * Consult Note - Diamante Guallpa LPN - 05/05/2024 10:43 AM EST During VAS Purposeful Rounding, an assessment of your patient's venous access was performed fby theVascular Access Service. The following tasks were performed if needed and communicated to the bedside RN Choose all that apply: [] PIV(s) checked for patency if daily need for flush needs to be performed [] CVAD was checked for patency if daily flush needs to be performed [] IV tubing clamped or capped if needed [] Visual inspection of your patient's central line dressing integrity [x] Review of indications for vascular access [] A photo was taken of your patient's central line [x] Visual inspection of your patient's IV dressing integrity [] Other While rounding an intervention was needed and communicated to the bedside RN Choose all that apply: [] Nonocclusive IV dressing addressed [] Nonocclusive CVAD dressing (please identify type of line) [] Infusion site leaking [] IV not patent and removed [] IV not indicated [] IV placed [] IV restarted [] Implanted Port, PICC or ML dressing changed if needed (either PRN or weekly) [] Other * Care Management Discharge - Mary Carmen Norton RN - 05/05/2024 8:53 AM EST CARE MANAGEMENT FINAL DISCHARGE NOTE Chart reviewed, care reviewed with primary team and at interdisciplinary rounds. Patient is medically ready for discharge to home without services. Needs for Transition of Care: Plan for discharge is: Home w/o Services Outpatient Agency/Support Group Needs: None Agency Referrals & Follow-up Care: Patient provided 1-800 [facility] phone number to establish with [facility]. Transportation: family or friend will provide Wheelchair van/Ambulance? No Functional status prior to admission: Independent Home Environment: Others in the home: alone. Current Living Arrangements: home/apartment/condo. Accessibility Concerns:lives in a 2 story alone. 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 He is independent at home and drives.. Current Functional Ability: Independent DME used at home: none DME Needed at Discharge: none Patient is insured through: Primary Insurance: [employer] MEDICARE Payor: HU[employer] MANAGED MEDICARE / Plan: HU[employer] PPO MANAGED MEDICARE / Product Type: *No Product type* / Secondary Insurance: N/A Prescription Coverage: Yes This plan was formulated with input from patient and team. All are in agreement with plan. Plan: Patient is medically ready for discharge today 05/05/24 per medical team. Plan going forward: Per the medical team, patient will discharge home today without services. Patient has been provided 1-800 [facility] phone number to establish with a PCP. Mary Carmen Norton RN Care Manager - [facility] Office of Care Management * Plan of Care - Kai Cifuentes RN - 05/05/2024 4:23 AM EST OUTCOME SUMMARY: Pt is alert and oriented. Vital signs stable. Incision site clean and dried. No swelling noted.,Pt denies pain. Vital signs stable. CPG GOAL OUTCOME EVALUATION: Problem: Adult Inpatient Plan of Care Goal: Optimal Comfort and Wellbeing Outcome: Ongoing (Interventions Implemented as Appropriate) Problem: Chest Pain Goal: Resolution of Chest Pain Symptoms Outcome: Ongoing (Interventions Implemented as Appropriate) Problem: Dysrhythmia Goal: Normalized Cardiac Rhythm Outcome: Ongoing (Interventions Implemented as Appropriate) * Plan of Care - Aliza Doll RN - 05/04/2024 5:53 PM ESTSummary: Day Summary OUTCOME EVALUATION NOTE: OUTCOME SUMMARY: Deidra Medina Jr. was admitted for new pacemaker generator. Today, A&Ox4, VSS on RA, 1AVB withlots of ectopy, frequent PVCs, occasional ventricular bigem. Generator replaced, ectopy continued, MD and EP notified. Pt is not displaying any signs or symptoms of distress. PLAN MOVING FORWARD: Monitor rhythm changes CPG GOAL OUTCOME EVALUATION: Problem: Adult Inpatient Plan of Care Goal: Plan of Care Review Outcome: Ongoing (Interventions Implemented as Appropriate) Goal: Patient-Specific Goal (Individualized) Outcome: Ongoing (Interventions Implemented as Appropriate) Goal: Absence of Hospital-Acquired Illness or Injury Outcome: Ongoing (Interventions Implemented as Appropriate) Goal: Optimal Comfort and Wellbeing Outcome: Ongoing (Interventions Implemented as Appropriate) Goal: Readiness for Transition of Care Outcome: Ongoing (Interventions Implemented as Appropriate) Problem: Chest Pain Goal: Resolution of Chest Pain Symptoms Outcome: Ongoing (Interventions Implemented as Appropriate) Problem: Dysrhythmia Goal: Normalized Cardiac Rhythm Outcome: Ongoing (Interventions Implemented as Appropriate) * Brief Op Note - Chrissie Ramirez MD - 05/04/2024 12:21 PM EST Brief Operative Note Patient Name: Deidra Medina Jr. : [id number] MR#: [id number] Case Date: 05/04/2024 Surgeon: Surgeons and Role: * Chrissie Ramirez MD - Primary Preoperative diagnosis: PACEMAKER AT END OF LIFE Postoperative diagnosis: * No post-op diagnosis entered * Procedure(s) (LRB): ELECTROPHYSIOLOGY PROCEDURE (Right) Anesthesia: Anesthesia type not filed in the log. Findings: successful replacement of dual chamber PM generator for pacemaker at [facility] Complications: none apparent Intake: Intraprocedure Crystalloid Total None Transfusion No data found in the last 1 encounters. Output: Estimated Blood Loss: Urine Output:: (no urine output recorded) Other Output: (no other output recorded) Drains: none Specimens removed during surgery: pacemaker generator with battery at [facility], returned to hand sprayer Disposition: aroused from sedation, and taken to the recovery room in a stable condition Condition: doing well without problems Attestation: Case Date: 05/04/2024 I performed this procedure without the involvement of a resident. (Please see the Surgical Encounter Summary for any Implant and Specimen details pertinent to this patient.) Surgical Infection Prevention Bundle Used? N/A * Initial Assessments - Abdi Toure RN - 05/04/2024 11:00 AM EST Office of Care Management Initial Assessment Abdi Toure RN reviewed record and discussed patient with Care Team. 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 Introduced self/reviewed role; services accepted. Admitted From: Home Reason for Hospitalization: Pacemaker replacement Past medical History: No past medical history on file. Hospitalizations Within the Past 30 Days: no previous admission in last 30 days Current Decision-Making Capacity: Self If AD's have not been completed the following surrogate would be surrogate decision maker per [place] decision making law. (Only good for 180 days) Any patient receiving care in [place] must abide by [place] law. The hierarchy for surrogate decision making is: (a) Patient???s spouse or civil union partner unless there is a divorce proceeding, separation agreement, or restraining order limiting that person???s relationship with the patient. (b) Any adult son or daughter of the patient. (c) Either parent of the patient. (d) Any adult brother or sister of the patient. (e) Any adult grandchild of the patient. (f) Any grandparent of the patient. (g) Any adult aunt, uncle, niece, or nephew of the patient. (h) A close friend of the patient. (i) The agent with financial power of toll line inspector or a conservator appointed in accordance with RSA 464-A. (j) The guardian of the patient???s estate. Advance Care Planning: Attempt Cardiopulmonary Resuscitation - Inpatient <no information> -Advanced Directive: No, declines Current Coping/Education/Information Needs: none Current Functional Ability: Independent Functional Status Prior to Admission: Independent Prior ADLs & IADLs: Independent with all ADLs & IADLs Home Environment: Others in the home: alone. Current Living Arrangements: home/apartment/condo. Accessibility Concerns:lives in a 2 story alone. 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 He is independent at home and drives.. In the last 12 months, was there a time when you were not able to pay the mortgage or rent on time?: No At any time in the past 12 months, were you homeless or living in a longterm (including now)?: No In the past 12 months has the [place], gas, oil, or water [employer] threatened to shut off services in your home?: No Within the past 12 months, you worried that your food would run out before you got the money to buymore.: Never true Within the past 12 months, the food you bought just didn't last and you didn't have money to get more.: Never true Resource / Environmental Concerns: Resource/Environmental Concerns: none Home Accessibility Concerns: stairs to access bedroom or bathroom In the past 12 months, has lack of transportation kept you from medical appointments or from getting medications?: No In the past 12 months, has lack of transportation kept you from meetings, work, or from getting things needed for daily living?: No Current DME: none Home Address confirmed as: [address] [place] [phone] Social & Family Supports: All names listed below confirmed with patient as current and correct No emergency contact information on file. Current Care Provided by: self Provides Primary Care For: no one Caregiver if needed: sibling(s) Quality of Family relationships: helpful, involved Community Resources being provided currently: none Behavioral Health History: denies Substance Use/Abuse confirmed: Social History Tobacco Use Smoking Status Unknown Smokeless Tobacco Not on file In the past year have you used an illegal drug or used a prescription medication for non-medical reasons?: No 0 No problems reported 1-2 Low level 3-5 Moderate level 6-8 Substantial level 9- 10 Severe level In the past year have you had 5 or more drinks a day containing alcohol?: No 0 to 7 points: Low risk 8 to 15 points: Medium risk 16 to 19 points: High risk 20 to 40 points: Addiction likely Other Pertinent/Service Specific Information: none Health/Prescription Coverage: Primary Insurance: HUMANA MANAGED MEDICARE Payor: HUMANA MANAGED MEDICARE / Plan: HUMANA PPO MANAGED MEDICARE / Product Type: *No Product type* / Secondary Insurance: N/A ; Prescription Coverage: Yes Are you financially able to cover the cost / copay of your medications?: Yes Preferred Pharmacy: [facility] [place], [place] - [address] [place] [id number] [address] [place] Status: Patient is a : No Primary Care Provider confirmed: None None-- I gave the 1-800 number/[facility] to find a provider Patient/Caregiver Goals of Treatment: to return to home and work Potential Needs for Transition of Care: none Agency Referrals: Not Applicable Transportation: no concerns Transportation Anticipated: family or friend will provide Medications Anticipated: patient able to fern picker Concerns to be Addressed: denies needs/concerns at this time Assessment: Patient is admitted to Cardio service for pacemaker service Plan going forward: consult to EP Care Management team will continue to follow and assist with discharge planning and coordination ofcare as indicated. Abdi Toure SENIOR COST ANALYST CCM * Consult Note - Chrissie Ramirez MD - 05/04/2024 9:26 AM EST Cardiac Electrophysiology Consult Note Date of Consultation: 05/04/2024 Admit Date: 05/03/2024 Place of Service: Inpatient Unit Responsible Attending: Puneet Miranda MD Reason for Consult: We are seeing Deidra Medina Jr. at the request of Dr. Miranda for the evaluation of pacemaker at [facility]. I have reviewed the available records, interviewed and examined the patient. Active Problem List: Patient Active Problem List Diagnosis ','Pacemaker generator end of life History of Present Illness: Deidra Medina Jr. is a 68 year old male with an unknown medical history with the exception of a MDT pacemaker implanted in 2013 who presented with malaise and chest discomfort for the past six months and when evaluated at [facility], his pacemaker was noted to have reached CHENILLE MACHINE OPERATOR on 10/16/23. Review of Systems: Constitutional: + fatigue, - fever, - chills Respiratory: + RAMOS, - shortness of breath, - cough, - apnea, - wheezing Cardiovascular: + chest discomfort - chest pain, - palpitations, - unusual rates Gastrointestinal: - nausea, - vomiting, - abdominal pain, - diarrhea Neurological: - lightheadedness, - dizziness, - syncope, - weakness Psychiatric: - anxious PMH: No past medical history on file. Pertinent Medications: None on file Vitals: Last Set of Vitals and range of vitals over past 24 hours: Last value Range last 24 hrs Temperature Temp: 36.8 ??C (98.2 ??F) Temp: [36.6 ??C (97.8 ??F)-36.8 ??C (98.3 ??F)] Heart Rate Heart Rate: 74 Heart Rate: [74-89] Blood Pressure BP: 120/69 BP: (96-145)/(69-96) Respiratory Rate Resp: 16 Resp: [16-18] SpO2 SpO2: 94 % SpO2: [93 %-97 %] Physical Exam: General- No acute distress, laying comfortably in bed HEENT- Head atraumatic, normocephalic Skin- Right sided pocket incision is well healed. No evidence of erosion or need of revision Cardiovascular- S1/S2 regular rate and rhythm. No murmur, rub or gallop Lungs- Clear to auscultation bilaterally Extremities- Pulses equal bilaterally. No edema noted Neuro- A&Ox3 Telemetry: Predominately sinus rhythm in the 80s bpm with occasional ventricular pacing ~65 bpm. Device Interrogation: Data Generator: Retora Black Kenny SOUZA [id number] / [id number] - Right-sided implant 06/13/13 RA Lead: Medtronic 5086 CapSureFix MRI / [id number]; 06/13/13 RV Lead: Medtronic 5086 CapSureFix MRI / [id number]; 06/13/13 Alerts [facility]: REPLACE DEVICE IMMEDIATELY. Diagnostics Pacing Mode: VVI @ 65 bpm Presenting EGMs: VS REEL FILM INSPECTOR Underlying Rhythm: Sinus Atrial Episodes: 0 Ventricular Episodes: 0 Atrial Pacin% Ventricular Pacin.8% HR Histogram: Slightly right-shifted Battery and Leads Voltage: 2.77 V Status: [facility] Magnet Rate: 65 bpm Charge Time: - sec Impedances (ohms) Sensing (mV) Thresholds HV RA RV LV RA RV LV RA RV LV - 513 418 - 3.6 8.1 - NR 1.25V @ 0.4ms - Labs: Component Value Date WBC 7.98 05/04/2024 HGB 15.0 05/04/2024 HCT 45.6 05/04/2024 PLATELET 198 05/04/2024 05/03/24 2151 INR 1.1 Component Value Date NA 138 05/03/2024 K 3.9 05/03/2024 CL 104 05/03/2024 BUN 17 05/03/2024 CREATININE 1.09 05/03/2024 MAGNESIUM 0.85 05/03/2024 Transthoracic Echocardiogram: Pending Assessment and Plan: - 68 year old male with an unknown medical history with the exception of a MDT pacemaker implanted in 2013 presented to the ED with malaise and chest discomfort for the past six months and when evaluated at [facility], his pacemaker was noted to have reached CHENILLE MACHINE OPERATOR on 10/16/23. - Schedule for right-sided Medtronic dual-chamber pacemaker generator replacement. - Antibiotic therapy: Ancef - Sedation: Moderate sedation. Mallampati class III, ASA class II - Anticoagulation plan: Not anticoagulated - Temporary pacing: No - Medication instructions: None - Benefits and risks of device replacement discussed, including but not limited to infection requiring explantation of all hardware, bleeding requiring blood transfusion, damage to any existing leads, hemothorax, pneumothorax requiring chest tube placement, vascular or myocardial damage/perforationrequiring endovascular or surgical repair, tamponade, lead dislodgment, DVT requiring coumadin anticoagulation, device recall, post-device syncope and the possible need for an early surgical revision. Post-procedure limitations were discussed with the patient. The patient's questions were answered and written consent was obtained and placed into patient's chart. Consult service will continue to follow patient. Candido Pemberton PA-C, PhD 05/04/2024 9:27 AM EP Consult Attending: Chrissie Ramirez MD Service Pager: [phone] Staff addendum: I have seen and evaluated the patient, and reviewed the available medical records. I agree with the findings, physical examination, and assessment of Candido Pemberton as detailed above. This patient has arrived with a pacemaker generator in need of replacement. We will plan to proceedwith replacement today with moderate sedation. In addition to above: - please obtain single view CXR now - patient will be eligible for discharge after generator replacement (he does NOT need overnight stay) Chrissie Ramirez MD 05/04/2024 10:48 AM * Plan of Care - Kai Cifuentes RN - 05/04/2024 5:41 AM EST OUTCOME SUMMARY: Pt admitted to the floor. Alert and oriented. Vital signs stable. Spo2 <88 during sleep. 2 liters of oxygen applied with effect. Pt denied pain. Pt had had episodes of bigeminy. Treatment team notified. MG replaced with effect. Introduced pt to the room. Call light is within reach. All due medication administered. Bed alarm activated. Pt is NPO from midnight. Awaiting EP consult. CPG GOAL OUTCOME EVALUATION: Problem: Adult Inpatient Plan of Care Goal: Readiness for Transition of Care Outcome: Ongoing (Interventions Implemented as Appropriate) Problem: Chest Pain Goal: Resolution of Chest Pain Symptoms Outcome: Ongoing (Interventions Implemented as Appropriate) Problem: Dysrhythmia Goal: Normalized Cardiac Rhythm Outcome: Ongoing (Interventions Implemented as Appropriate) documented in this encounter Plan of Treatment Not on file documented as of this encounter Procedures Procedure Name Priority Date/Time Associated Diagnosis Comments XR CHEST ONE VIEW STAT 05/04/2024 1:4 6 PM EST ELECTROPHYSIOLOGY PROCEDURE Routine 05/04/2024 12:18 PM EST ECHO COMPLETE W CONTRAST Routine 025 10:00 AM EST Pacemaker generator end of life Chest pain, unspecified type CBC (WITH DIFF) Routine 05/04/2024 3:24 AM EST EKG 12-LEAD STAT 05/03/2024 9:56 PM EST Pacemaker generator end of life TROPONIN - SINGLE STAT 05/03/2024 9:5 1 PM EST TSH CASCADE Routine 05/03/2024 9:51 PM EST HC PARTIAL THROMBOPLASTIN TIME Routine 05/03/2024 9:51 PM EST PROTHROMBIN TIME Routine 05/03/2024 9:51 PM EST CBC (WITH DIFF) STAT 05/03/2024 9:51 PM EST T4, FREE Routine 05/03/2024 9:51 PM EST MAGNESIUM STAT 05/03/2024 9:51 PM EST BASIC METABOLIC PANEL STAT 05/03/2024 9:51 PM EST documented in this encounter Results * XR Chest One View (05/04/2024 1:46 PM EST) WORKSTATION ID [id number] RAD Anatomical Region Laterality Modality Chest N/A Digital Radiogra phy Impressions 05/04/2024 1:51 PM EST Expected appearance to pacemaker leads Thank you for letting us participate in the care of this patient. ??If you are a health care provider and have any questions regarding this report, please contact the number below. ??For patients who have questions please contact the health career counselor that requested your imaging first. ? Narrative 05/04/2024 1:51 PM EST EXAMINATION: XR CHEST ONE VIEW CLINICAL HISTORY: pacemaker leads TECHNIQUE: 1 view of the chest COMPARISON: None FINDINGS: Low lung volumes producing increased vascular markings diffusely. Right-sided pacemaker has leads in the RIGHT atrium and RIGHT ventricular apex. Leads appear intact. No pneumothorax seen. No large effusion Procedure Note Hannah Boyce MD - 05/04/2024 EXAMINATION: XR CHEST ONE VIEW CLINICAL HISTORY: pacemaker leads TECHNIQUE: 1 view of the chest COMPARISON: None FINDINGS: Low lung volumes producing increased vascular markings diffusely.Right-sided pacemaker has leads in the RIGHT atrium and RIGHT ventricular apex. Leadsappear intact. No pneumothorax seen. No large effusion IMPRESSION Expected appearance to pacemaker leads Thank you for letting us participate in the care of this patient. If youare a health care provider and have any questions regarding this report,please contact the number below. For patients who have questions please contactthe health career counselor that requested your imaging first. Puneet Miranda MD IMG DX ORDERABLES * ELECTROPHYSIOLOGY PROCEDURE (05/04/2024 12:18 PM EST) Anatomical Region Laterality Modality Other Narrative 05/09/2024 8:02 AM EST Table formatting from the original result was not included. [facility] ELECTROPHYSIOLOGY PROCEDURE NOTE PROCEDURE: dual chamber pacemaker generator change PATIENT HISTORY: 68 y.o. man with SND s/p dual chamber PPM implantation remotely who presented with generator at [facility] RADIOGRAPHER: Chrissie Ramirez MD ASSISSTANT: None PROCEDURE: Informed consent was obtained. ??The patient was brought to the Cardiac Electrophysiology laboratory in a post-absorptive, fasting state after receiving 3 scrubs to the implant area. A peripheral IV was in place. Continuous electrocardiographic, blood pressure, oxygen saturation and carbon dioxide monitoring was initiated. Self-adhesive cardioversion patches were positioned on the chest. Conscious sedation was administered per protocol. The implant site was then prepped and draped in the usual sterile fashion. The implant area was infiltrated with a 50/50 mixture of lidocaine (1%) and bupivicaine (0.5%). An incision was made medial to the RIGHT deltopectoral groove and sharp and blunt dissection was used down to the existing pocket. ??The device and leads were brought to the surface and inspected. ??All visible components appeared normal. After a lead time out, the existing lead(s) were disconnected from the existing generator which was passed off the table and connected to the new generator. Connections were assessed and noted to be secure. The leads were embedded in the roof of the pocket, so these were dissected out and moved to the floor. The pocket was flushed with antibiotic solution. The generator and lead(s) were implanted in the pocket in a Tyrx pouch, and the pocket closed in layers using 2-0, 3-0 and 4-0 absorbable sutures. The skin was closed using a sub-cuticular technique. Steri-strips and a bio-occlusive dressing were applied to the skin. HARDWARE RETAINED AND USED: Aircraft Armament Mechanic Model # Serial # Implant Date Atrial Lead MDT ??5086-45 [id number] 06/13/13 Ventricular Lead MDT 5086-52 [id number] 06/13/13 HARDWARE REMOVED: Aircraft Armament Mechanic Model # Serial # Implant Date Generator MDT Kenny [id number] 06/13/13 HARDWARE IMPLANTED: Aircraft Armament Mechanic Model # Serial # Generator T Aidee ??[id number] PACE/SENSE DATA: Sensed wave (mV) Threshold (V) Impedance (Ohms) Atrium 3.8 0.75@0.4ms 494 Ventricle 9.9 1.0@0.4ms 418 FINAL PROGRAMMING: Pacing: Mode Lower rate (ppm) Upper rate (ppm) MVP ??50 120 MEDICATION SUMMARY: Sedation time: 11:44 am - 12:20 pm Medication Route Unit Total Cefazolin IV gm 3 Fentanyl IV mcg 75 Midazolam IV mg 1 RADIOLOGY SUMMARY: None CONCLUSIONS: Successful dual chamber pacemaker generator change. Successful pocket revision. I, Chrissie Ramirez MD, was present for and performed the entire procedure without the involvement of a resident or fellow. ??I, Chrissie Ramirez MD, was present throughout the period of sedation as documented by the sedation RN. Chrissie Ramirez MD EP PROCEDURE ORDERAB LES * ECHO COMPLETE W CONTRAST (05/04/2024 10:00 AM EST) Anatomical Region Laterality Modality Cardiac Other 05/04/2024 8:55 AM EST Narrative 05/04/2024 10:07 AM EST [address] [place] [address] ? Echocardiogram Report Name: DEIDRA MEDINA JR ? Study Date: 05/04/2024 08:55 AMBP: 120/69 mmHg : 1955 ? Height: 183 cm ? Account: [id number] Age: 68 yrs ? Weight: 120 kg Gender: Male ?BSA: 2.4 m2 Ordering Physician: PUNEET MIRANDA Referring Physician: NILE GAO Performed By: Rolly Cash RDCS Reason For Study: pacemaker generator end of life Exam Location: [facility]. Interpretation Summary - Very technically limited study. - Left ventricular ejection fraction is estimated visually at 30-35%. Procedure Complete-22393. Image enhancement Optison was used for left ventricular opacification. Suboptimal quality. This study is limited because of body habitus. Left Ventricle The left ventricle is not well visualized. Left ventricular ejection fraction is estimated visually at 30-35%. Right Ventricle The right ventricle is not well visualized. Left Atrium The left atrium is normal. Right Atrium The right atrium is not well visualized. Aortic Valve The aortic valve is not well visualized. There is no aortic stenosis. There is no aortic regurgitation. Mitral Valve The mitral valve is not well visualized. There is no mitral stenosis. There is no mitral regurgitation. Tricuspid Valve The tricuspid valve is not well visualized. There is no tricuspid stenosis. There is no tricuspid regurgitation. Pulmonic Valve The pulmonic valve is not well visualized. There is no valvular pulmonic stenosis. There is no pulmonic valve regurgitation. Great Arteries The diameter at the level of the sinuses of Valsalva is 3.7 cm. Venous Inferior vena cava is dilated. Inferior vena cava collapse greater than 50% with respiration. Pericardium/Pleural There is no pericardial effusion. Hemodynamics Pulmonary artery hypertension could not be assessed due to inadequate tricuspid regurgitation jet. ? 2D Measurements ? Volumes ?IVSd: 1.4 cm ? LAV(MOD-bp) Indexed: ?LVIDd: 4.7 cm ?LVIDs: 3.7 cm ?26.2 ml/m2 ?LVPWd: 1.4 cm ?SV(LVOT): 42.8 ml ? SI(LVOT): 17.8 ml/m2 ?RWT: 0.61 {ratio} ?LV mass(C)d: 264.7 grams ?LV mass(C)dI: 110.4 grams/m2 ?Ao root diam: 3.7 cm ?Ao root diam index: 1.6 ?LVOT diam: 2.1 cm Doppler LV V1 VTI: 12.0 cm Ao V2 VTI: 13.8 cm Ao Max Chapito: 100.9 cm/sec Ao valve max: 4.1 mmHg Ao valve mean: 1.7 mmHg MV E max chapito: 60.8 cm/sec Lat Peak E' Chapito: 7.6 cm/sec E/e' (lat): 8.0 Med Peak E' Chapito: 4.0 cm/sec E/e' (med): 15.1 E/e' Average: 11.5 ALIREZA(I,D): 3.1 cm2 Dimensionless index Aov: 0.87 Procedure Note Angelito Murphy MD - 05/04/2024 [address] [place] [address] Echocardiogram Report Name: DEIDRA MEDINA JR Study Date: 508:55 AMBP: 120/69 mmHg : 1955 Height: 183 cm Account: [id number] Age: 68 yrs Weight: 120 kg Gender: Male BSA: 2.4 m2 Ordering Physician: PUNEET MIRANDA Referring Physician: NILE GAO Performed By: Rolly Cash RDCS Reason For Study: pacemaker generator end of life Exam Location: [facility]. Interpretation Summary - Very technically limited study. - Left ventricular ejection fraction is estimated visually at 30-35%. Procedure Complete-62761. Image enhancement Optison was used for left ventricular opacification. Suboptimal quality. This study is limited because of bodyhabitus. Left Ventricle The left ventricle is not well visualized. Left ventricular ejectionfraction is estimated visually at 30-35%. Right Ventricle The right ventricle is not well visualized. Left Atrium The left atrium is normal. Right Atrium The right atrium is not well visualized. Aortic Valve The aortic valve is not well visualized. There is no aortic stenosis.There is no aortic regurgitation. Mitral Valve The mitral valve is not well visualized. There is no mitral stenosis.There is no mitral regurgitation. Tricuspid Valve The tricuspid valve is not well visualized. There is no tricuspidstenosis. There is no tricuspid regurgitation. Pulmonic Valve The pulmonic valve is not well visualized. There is no valvular pulmonicstenosis. There is no pulmonic valve regurgitation. Great Arteries The diameter at the level of the sinuses of Valsalva is 3.7 cm. Venous Inferior vena cava is dilated. Inferior vena cava collapse greater than50% with respiration. Pericardium/Pleural There is no pericardial effusion. Hemodynamics Pulmonary artery hypertension could not be assessed due to inadequatetricuspid regurgitation jet. 2D Measurements Volumes IVSd: 1.4 cm LAV(MOD-bp)Indexed: LVIDd: 4.7 cm LVIDs: 3.7 cm 26.2 ml/m2 LVPWd: 1.4 cm SV(LVOT): 42.8ml SI(LVOT): 17.8ml/m2 RWT: 0.61 {ratio} LV mass(C)d: 264.7 grams LV mass(C)dI: 110.4 grams/m2 Ao root diam: 3.7 cm Ao root diam index: 1.6 LVOT diam: 2.1 cm Doppler LV V1 VTI: 12.0 cm Ao V2 VTI: 13.8 cm Ao Max Chapito: 100.9 cm/sec Ao valve max: 4.1 mmHg Ao valve mean: 1.7 mmHg MV E max chapito: 60.8 cm/sec Lat Peak E' Chapito: 7.6 cm/sec E/e' (lat): 8.0 Med Peak E' Chapito: 4.0 cm/sec E/e' (med): 15.1 E/e' Average: 11.5 ALIREZA(I,D): 3.1 cm2 Dimensionless index Aov: 0.87 Puneet Miranda MD ECHO ORDERABLES * (ABNORMAL) CBC (with Diff) (05/04/2024 3:24 AM [facility]) White Blood Cell 7.98 4.00 - 9.50 x10(3)/mc L 05/04/2024 3:52 AM [facility] Red Blood Cell 4.52(L) 4.58 - 5.54 x10(6)/mc L 05/04/2024 3:52 AM [facility] LABORATORY Hemoglobin 15.0 13.7 - 16.5 g/dL 05/04/2024 3:52 AM [facility] Hematocrit 45.6 40.5 - 48.5 % 05/04/2024 3:52 AM [facility] Mean Cell Volume 100.9(H) 82.9 - 93.1 fL 05/04/2024 3:52 AM [facility] Mean Cell Hemoglobin 33.2(H) 27.5 - 32.1 pg 05/04/2024 3:52 AM [facility] Mean Cell Hemoglobin Concentration 32.9 32.0 - 35.7 g/dL 05/04/2024 3:52 AM [facility] Platelet 198 145 - 357 x10(3)/mc L 05/04/2024 3:52 AM [facility] Mean Platelet Volume 11.5 7.6 - 12.9 fL 05/04/2024 3:52 AM [facility] RDW Standard Deviation 47.5(H) 36.0 - 45.0 fL 05/04/2024 3:52 AM [facility] RDW coefficient of variation 12.6 11.4 - 13.8 % 05/04/2024 3:52 AM [facility] NRBC% auto 0.0 % 05/04/2024 3:52 AM [facility] NRBC Absolute <0.01 <0.01 x10(3)/mc L 05/04/2024 3:52 AM [facility] Neutrophil % 62.9 % 05/04/2024 3:52 AM [facility] Neutrophil Absolute (ANC) - Automated 5.03 1.70 - 6.10 x10(3)/mc L 05/04/2024 3:52 AM [facility] Lymph % 24.6 % 05/04/2024 3:52 AM [facility] Lymph Absolute 1.96 0.90 - 3.20 x10(3)/mc L 05/04/2024 3:52 AM EST [facility] Monocyte % 9.1 % 05/04/2024 3:52 AM [facility] Monocyte Absolute 0.73 0.30 - 0.90 x10(3)/mc L 05/04/2024 3:52 AM [facility] Eos % 1.8 % 05/04/2024 3:52 AM [facility] Eos Absolute 0.14 0.00 - 0.40 x10(3)/mc L 05/04/2024 3:52 AM [facility] Basophil % 1.3 % 05/04/2024 3:52 AM [facility] Baso Absolute 0.10 0.00 - 0.10 x10(3)/mc L 05/04/2024 3:52 AM [facility] Immature Gran % 0.3 % 3:52 AM [facility] Immature Gran Absolute <0.04 0.00 - 0.04 x10(3)/mc L 05/04/2024 3:52 AM [facility] Blood VENOUS BLOOD SPECIMEN / Unknown Venipuncture / Unknown 05/04/2024 3:24 AM EST 05/04/2024 3:44 AM EST Abdirahman Serrano MD HEMATOLOGY ORDERABL ES [facility] [place] [address] * EKG 12 Lead (05/03/2024 9:56 PM EST) [facility] Ventricular rate 77 BPM MUSE SYSTEM Atrial Rate 77 BPM MUSE SYSTEM P-R Interval 244 ms MUSE SYSTEM QRS Duration 142 ms MUSE SYSTEM Q-T Interval 430 ms MUSE SYSTEM QTC Calculated (Bezet) 486 ms MUSE SYSTEM Calculated P [place] 65 degrees MUSE SYSTEM Calculated R [place] -54 degrees MUSE SYSTEM Calculated T [place] 37 degrees MUSE SYSTEM INTERPRETATION Sinus rhythm with 1st degree A-V block Occasional ventricular-paced complexes and with frequent Premature ventricular complexes Left axis deviation Non-specific intra-ventricular conduction block Minimal voltage criteria for LVH, may be normal variant ( Vassar product ) Cannot rule out Anterior infarct , age undetermined Abnormal ECG When compared with ECG of 22-AUG-1993 16:15, Electronic ventricular pacemaker is now present I personally reviewed the tracing and edited the fellows interpretation Confirmed by fellow Peter Ospina ([id number]) on 05/04/2024 9:03:56 AM Confirmed by MD Contreras Jon ([id number]) on 05/04/2024 2:16:26 PM MUSE SYSTEM 05/03/2024 9:56 PM EST 05/04/2024 2:16 PM EST Abdirahman Serrano MD ECG ORDERABLES MUSE SYSTEM * T4, free (05/03/2024 9:51 PM EST) [facility] Free T4 1.05 0.93 - 1.70 ng/dL 05/03/2024 11:01 PM EST [facility] Blood VENOUS BLOOD SPECIMEN / Unknown Venipuncture / Unknown 05/03/2024 9:51 PM EST 05/03/2024 9:56 PM EST Abdirahman Serrano MD CHEMISTRY ORDERABLE S [facility] [place] [address] * APTT (05/03/2024 9:51 PM EST) [facility] Partial Thromboplastin Time 29 25 - 37 sec 05/03/2024 10:08 PM EST [facility] Comment: The PTT is NOT appropriate for heparin monitoring. Use the Anti-Xa level for heparin monitoring (HEP UFH) or LMWH monitoring (HEP LMW). A PTT less than 37 seconds generally indicates adequate hemostasis. Blood VENOUS BLOOD SPECIMEN / Unknown Venipuncture / Unknown 05/03/2024 9:51 PM EST 05/03/2024 9:56 PM EST Abdirahman Serrano MD HEMATOLOGY ORDERABL ES Performing Organization Address City/[facility] Co de Phone Number [facility] [place] [address] * (ABNORMAL) Prothrombin Time (05/03/2024 9:51 PM EST) Pathologist [facility] Prothrombin Time 12.7(H) 9.4 - 12.5 sec 05/03/2024 10:08 PM EST [facility] International Normalization Ratio 1.1 <=4.9 05/03/2024 10:08 PM EST [facility] Comment: An INR < 2.0 indicates adequate procoagulant activity for hemostasis in most patients without underlying bleeding disorders, though the INR may not adequately reflect hemostatic capacity in patients with liver disease and synthetic impairment. The recommended target INR range for therapeutic anticoagulation is 2.0 - 3.0 for most applications, though lower and higher ranges may be appropriate depending on clinical circumstances. Blood VENOUS BLOOD SPECIMEN / Unknown Venipuncture / Unknown 05/03/2024 9:51 PM EST 05/03/2024 9:56 PM EST Abdirahman Serrano MD HEMATOLOGY ORDERABL ES Performing Organization Address City/State/[facility] Co de Phone Number [facility] [place] [address] * (ABNORMAL) Troponin - Single (05/03/2024 9:51 PM EST) Pathologist [facility] Troponin-T, High Sensitivity 27(H) <=22 ng/L 05/03/2024 10:32 PM EST [facility] Comment: This patient's troponin T concentration was determined using the Quynh 5th Generation troponin T assay. According to the fourth universal definition of myocardial infarction, the term acute myocardial infarction should be used when there is acute myocardial injury with clinical evidence of acute myocardial ischemia and with detection of a rise and/or fall of cardiac troponin values with at least one value above the 99th percentile and at least one of the following: - Symptoms of myocardial ischemia; - New ischemic ECG changes; - Development of pathological Q waves; - Imaging evidence of new loss of viable myocardium or new regional wall motion ?? abnormality in a pattern consistent with an ischemic etiology; - Identification of a coronary thrombus by angiography or autopsy (not for type 2 or 3 ?? MIs) Serial measurement of troponin and the change in troponin concentration over time (delta) is crucial for the diagnosis of acute myocardial infarction. Guidance on the interpretation of the new 5th Generation Troponin T values and the delta troponin value can be found in the [facility] Laboratory Test Catalog Troponin - https://one-.testcatalog.org/catalogs/565/[email or web address]/[email or web address] Reference: Fourth [place] Definition of Myocardial Infarction. Journal of the [place] [employer] 2018;72:4954-6223 Blood VENOUS BLOOD SPECIMEN / Unknown Venipuncture / Unknown 05/03/2024 9:51 PM EST 05/03/2024 9:56 PM EST Abdirahman Serrano MD CHEMISTRY ORDERABLE S Performing Organization Address City/[facility]/ZIP Co de Phone Number [facility] [place] [address] * (ABNORMAL) TSH Bevier (05/03/2024 9:51 PM EST) Thyroid Stimulating Hormone 8.98(H) 0.27 - 4.20 mcIU/mL 05/03/2024 10:32 PM EST [facility] Blood VENOUS BLOOD SPECIMEN / Unknown Venipuncture / Unknown 05/03/2024 9:51 PM EST 05/03/2024 9:56 PM EST Abdirahman Serrano MD CHEMISTRY ORDERABLE S Performing Organization Address City/[facility]/ZIP Co de Phone Number [facility] [place] [address] * Magnesium (05/03/2024 9:51 PM EST) Magnesium 0.85 0.69 - 1.07 mMol/L 05/03/2024 10:32 PM EST [facility] Blood VENOUS BLOOD SPECIMEN / Unknown Venipuncture / Unknown 05/03/2024 9:51 PM EST 05/03/2024 9:56 PM EST Abdirahman Serrano MD CHEMISTRY ORDERABLE S [facility] [place] [address] * Basic Metabolic Panel (05/03/2024 9:51 PM EST) Glucose 119 65 - 199 mg/dL 05/03/2024 10:32 PM [facility] Comment:Glucose Concentratio n >=200 mg/dL plus symptoms is consistent with Diabetes Mellitus. Blood Urea Nitrogen 17 10 - 20 mg/dL 05/03/2024 10:32 PM [facility] Creatinine 1.09 0.80 - 1.50 mg/dL 05/03/2024 10:32 PM [facility] Sodium 138 135 - 145 mMol/L 05/03/2024 10:32 PM [facility] Potassium 3.9 3.5 - 5.0 mMol/L 05/03/2024 10:32 PM [facility] Chloride 104 98 - 107 mMol/L 05/03/2024 10:32 PM [facility] Carbon Dioxide 24 22 - 31 mMol/L 05/03/2024 10:32 PM [facility] Anion Gap 10 5 - 15 mMol/L 05/03/2024 10:32 PM [facility] Calcium 9.1 8.5 - 10.5 mg/dL 05/03/2024 10:32 PM [facility] Est Glomerular Filtration Rate - Male 73 mL/min/1. 73 m?? 05/03/2024 10:32 PM [facility] Comment: This patient's estimated GFR was calculated using the 2020 CKD-EPI equation. The estimated GFR can vary from the measured GFR by up to 30% in the absence of rapidly changing kidney function. Assessment of the estimated GFR is not appropriate when creatinine concentrations are rapidly changing. For clinical situations in which a more precise estimate of GFR is necessary, consider alternative methods of GFR estimation such as a 24-hour urine creatinine clearance. Assignment of CKD stage 1 - 5 for patients with an eGFR near the transition point between stages may be based on clinical assessment of muscle mass and symptoms in addition to eGFR. Link: eGFR Calculator [employer] Blood VENOUS BLOOD SPECIMEN / Unknown Venipuncture / Unknown 05/03/2024 9:51 PM EST 05/03/2024 9:56 PM EST Abdirahman Serrano MD CHEMISTRY ORDERABLE S [facility] [place] [address] * (ABNORMAL) CBC (with Diff) (05/03/2024 9:51 PM EST) White Blood Cell 7.39 4.00 - 9.50 x10(3)/mc L 05/03/2024 10:00 PM [facility] Red Blood Cell 4.56(L) 4.58 - 5.54 x10(6)/mc L 05/03/2024 10:00 PM [facility] Hemoglobin 15.3 13.7 - 16.5 g/dL 05/03/2024 10:00 PM [facility] Hematocrit 44.8 40.5 - 48.5 % 05/03/2024 10:00 PM [facility] Mean Cell Volume 98.2(H) 82.9 - 93.1 fL 05/03/2024 10:00 PM [facility] Mean Cell Hemoglobin 33.6(H) 27.5 - 32.1 pg 05/03/2024 10:00 PM [facility] Mean Cell Hemoglobin Concentration 34.2 32.0 - 35.7 g/dL 05/03/2024 10:00 PM [facility] Platelet 190 145 - 357 x10(3)/mc L 05/03/2024 10:00 PM [facility] Mean Platelet Volume 11.7 7.6 - 12.9 fL 05/03/2024 10:00 PM [facility] RDW Standard Deviation 46.2(H) 36.0 - 45.0 fL 05/03/2024 10:00 PM [facility] RDW coefficient of variation 12.8 11.4 - 13.8 % 05/03/2024 10:00 PM [facility] NRBC% auto 0.0 % 05/03/2024 10:00 PM [facility] NRBC Absolute <0.01 <0.01 x10(3)/mc L 05/03/2024 10:00 PM [facility] Neutrophil % 70.5 % 05/03/2024 10:00 PM [facility] Neutrophil Absolute (ANC) - Automated 5.21 1.70 - 6.10 x10(3)/mc L 05/03/2024 10:00 PM [facility] Lymph % 19.4 % 05/03/2024 10:00 PM [facility] Lymph Absolute 1.43 0.90 - 3.20 x10(3)/mc L 05/03/2024 10:00 PM [facility] Monocyte % 7.7 % 05/03/2024 10:00 PM [facility] Monocyte Absolute 0.57 0.30 - 0.90 x10(3)/mc L 05/03/2024 10:00 PM [facility] Eos % 1.2 % 05/03/2024 10:00 PM [facility] Eos Absolute 0.09 0.00 - 0.40 x10(3)/mc L 05/03/2024 10:00 PM [facility] Basophil % 0.9 % 05/03/2024 10:00 PM [facility] Baso Absolute 0.07 0.00 - 0.10 x10(3)/mc L 05/03/2024 10:00 PM EST [facility] Immature Gran % 0.3 % 10:00 PM EST [facility] Immature Gran Absolute <0.04 0.00 - 0.04 x10(3)/mc L 05/03/2024 10:00 PM EST [facility] Blood VENOUS BLOOD SPECIMEN / Unknown Venipuncture / Unknown 05/03/2024 9:51 PM EST 05/03/2024 9:56 PM EST Abdirahman Serrano MD HEMATOLOGY ORDERABL ES [facility] [place] [address] documented in this encounter Visit Diagnoses Diagnosis Pacemaker generator end of life- Primary Fitting and adjustment of cardiac pacemaker Pacemaker generator end of life Fitting and adjustment of cardiac pacemaker Chest pain, unspecified type Hypertension, unspecified type documented in this encounter Admitting Diagnoses Diagnosis Pacemaker generator end of life Fitting and adjustment of cardiac pacemaker documented in this encounter Administered Medications Inactive Administered Medications - up to 3 most recent administrations Medication Order MAR Action Action Date Dose Rate Site acetaminophen (Tylenol) tablet 650 mg 650 mg, Oral, EVERY 6 HOURS PRN, Starting on Thu05/03/24 at 2136, Until Thu05/05/24 at 1709, Pain, Headaches, Fever, - Maximum dose of acetaminophen is 4,000 mg from all sources in 24 hours. - Unless otherwise specified, when ordered PRN for pain, acetaminophen should be given first if other PRN pain medications are ordered., Routine amLODIPine (Norvasc) tablet 2.5 mg 2.5 mg, Oral, DAILY, First dose on Thu05/03/24 at 2200, Until Discontinued, Routine Given 05/05/2024 9:08 AM EST 2.5 mg Given 05/03/2024 10:35 PM EST 2.5 mg ceFAZolin (Ancef) injection 3 g 3 g, Intravenous, ONCE PRN, Starting on Thu05/04/24 at 1232, Until Thu05/04/24 at 1631, per Dr. Zeitler, Cath (Intra-Procedure), Routine, Indication for (Active or Suspected): Prophylaxis Given 05/04/2024 11:35 AM EST 3 g flumazeniL (Romazicon) (0.1 mg/mL) injection 0.2 mg 0.2 mg, Intravenous, EVERY 2 MIN PRN, 5 doses, Starting on Thu05/04/24 at 1058, Until Hilary 05/05/24 at 1709, for respiratory rate less than 8 or SpO2 less than 90% despite supplemental O2, For respiratory rate less than 8 per minute or SpO2 less than 90% despite supplemental O2, administer 0.2 mg every 2 minutes for the duration of the EP procedure. Maximum total dose 1 mg., EP (Intra-Procedure), Routine lidocaine (Xylocaine) 1% (10 mg/mL) injection 3 mg 3 mg (0.3 mL), Subcutaneous, ONCE PRN, 1 dose, Starting on Thu05/03/24 at 2135, Until Hilary 05/05/24 at 1709, for discomfort with PIV insertion, Routine magnesium sulfate 2 g in sterile water 50 mL infusion 2 g, Intravenous, ONCE, 1 dose, On Thu05/03/24 at 2315, Administer over 120 Minutes New Bag 05/03/2024 11:32 PM EST 2 g 25 mL/hr melatonin tablet 3 mg 3 mg, Oral, NIGHTLY PRN, Starting on Thu05/03/24 at 2135, Until Hilary 05/05/24 at 1709, Sleep, Sleep, Routine naloxone (Narcan) (0.4 mg/mL) injection 0.1 mg 0.1 mg, Intravenous, EVERY 2 MIN PRN, Starting on Thu05/04/24 at 1058, Until Hilary 05/05/24 at 1709, Opioid Reversal, for respiratory rate less than 8 per minute or SpO2 less than 90% despite supplemental O2,, For respiratory rate less than 8 per minute or SpO2 less than 90% despite supplemental O2, administer 0.1 mg every 2 minutes for the duration of the EP procedure. Maximum dose 0.8 mg., EP (Intra-Procedure), Routine ondansetron (pf) (Zofran) (2 mg/mL) injection 4 mg 4 mg, Intravenous, EVERY 15 MIN PRN, 2 doses, Starting on Thu05/04/24 at 1058, Until Hilary 05/05/24 at 1709, Nausea, As needed for nausea or vomiting, May repeat once for the duration of the EP procedure., EP (Intra-Procedure) perflutren protein-A microsphers (Optison) (0.22 mg/mL) injection 0.5 mL 0.5 mL, Intravenous, ONCE PRN, 1 dose, Starting on Thu05/04/24 at 1000, Until Thu05/04/24 at 1000, for enhancement of sub-optimal echo images, Echo Lab (Intra-Procedure), Routine Given 05/04/2024 10:00 AM EST 0.5 mLs sodium chloride 0.9 % (flush) (BD PosiFlush Normal Saline 0.9) flush 5 mL 5 mL, Intravenous, 2 TIMES DAILY, First dose on Thu05/03/24 at 2200, Until Discontinued, Routine Given 05/05/2024 9:09 AM EST 5 mLs Given 05/04/2024 8:10 PM EST 5 mLs Given 05/04/2024 9:16 AM EST 5 mLs sodium chloride 0.9 % (flush) (BD PosiFlush Normal Saline 0.9) flush 5-20 mL 5-20 mL, Intravenous, EVERY 1 MIN PRN, Starting on Thu05/03/24 at 2135, Until Hilary 05/05/24 at 1709, flush, Flush pertains to all indwelling lines. Flush per protocol found in the job aid using the link provided on this medication record., Routine documented in this encounter Active and Recently Administered Medications Times are shown in EST. Scheduled Medication Order 05/03/2024 05/04/2024 05/05/2024 amLODIPine (Norvasc) tablet 2.5 mg 2.5 mg, Oral, DAILY, First dose on Thu05/03/24 at 2200, Until Discontinued, Routine 2235 (Given - Provider: Kai Cifuentes RN) 1122 (MAY Hold - Provider: Admin Adt - Reason: Transfer to a Procedural area)1244 (MAY Unhold - Provider: Admin Adt) 0908 (Given - Provider: Mario Carpenter RN) BUPivacaine (pf) (Marcaine) (5 mg/mL) 0.5% injection 150 mg (COMPLETED) 150 mg (30 mL), Subcutaneous, ONCE, 1 dose, On Thu05/04/24 at 1115, EP (Intra-Procedure), Routine 1114 (Due)1142 (Given - Provider: Precious Park RN) ceFAZolin (Ancef) 2 g vial attach to sodium chloride 0.9% 100 mL Mini-Bag Plus (COMPLETED) 2 g, Intravenous, ONCE, 1 dose, On Thu05/04/24 at 1115, Administer over 30 Minutes, For use in the electrophysiology lab (EP lab) only with direct provider supervision and verbal order., EP (Intra-Procedure), Indication for (Active or Suspected): Prophylaxis 1114 (Due)1135 (New Bag - Provider: Precious Park RN) lidocaine (Xylocaine) (20 mg/mL) 2% injection 400 mg (COMPLETED) 400 mg (20 mL), Subcutaneous, ONCE, 1 dose, On Thu05/04/24 at 1115, EP (Intra-Procedure), Routine 1114 (Due)1142 (Given - Provider: Precious Park RN) magnesium sulfate 2 g in sterile water 50 mL infusion (COMPLETED) 2 g, Intravenous, ONCE, 1 dose, On Thu05/03/24 at 2315, Administer over 120 Minutes 2332 (New Bag - Provider: Kai Cifuentes RN) 0132 (Stopped - Provider: Kai Cifuentes RN) sodium chloride 0.9 % (flush) (BD PosiFlush Normal Saline 0.9) flush 5 mL 5 mL, Intravenous, 2 TIMES DAILY, First dose on Thu05/03/24 at 2200, Until Discontinued, Routine 2235 (Given - Provider: Kai Cifuentes RN) 0916 (Given - Provider: Aliza Doll RN)1122 (MAY Hold - Provider: Admin Adt - Reason: Transfer to a Procedural area)1244 (MAY Unhold - Provider: Admin Adt)2009 (Given - Provider: Kai Cifuentes, PAT) 0909 (Given - Provider: Mario Carpenter RN) vancomycin (Vancocin) injection 1,000 mg (COMPLETED) 1,000 mg (1 g), Topical (Top), ONCE, 1 dose, On Thu05/04/24 at 1115, Warning Vesicant/Irritant Medication , EP (Intra-Procedure), Routine, Indication for (Active or Suspected): Prophylaxis 1115 (Due)1142 (Given - Provider: Precious Park RN) PRN Medication Order 05/03/2024 05/04/2024 05/05/2024 acetaminophen (Tylenol) tablet 650 mg 650 mg, Oral, EVERY 6 HOURS PRN, Starting on Thu05/03/24 at 2136, Until Hilary 05/05/24 at 1709, Pain, Headaches, Fever, - Maximum dose of acetaminophen is 4,000 mg from all sources in 24 hours. - Unless otherwise specified, when ordered PRN for pain, acetaminophen should be given first if other PRN pain medications are ordered., Routine 1122 (MAY Hold - Provider: Admin Adt - Reason: Transfer to a Procedural area)1244 (MAY Unhold - Provider: Admin Adt) ceFAZolin (Ancef) injection 3 g () 3 g, Intravenous, ONCE PRN, Starting on Thu05/04/24 at 1232, Until Thu05/04/24 at 1631, per Dr. Ramirez, Cath (Intra-Procedure), Routine, Indication for (Active or Suspected): Prophylaxis 1135 (Given - Provider: Zoila Valdez RN) fentaNYL (PF) (50 mcg/mL) injection 25-50 mcg (CANCELED) 25-50 mcg, Intravenous, EVERY 5 MIN PRN, Starting on Thu05/04/24 at 1058, Until Thu05/04/24 at 1244, Pain, As needed to induce or maintain moderate sedation per [facility] Moderate Sedation Policy for the duration of the EP procedure., As needed to induce or maintain moderate sedation per [facility] Moderate Sedation Policy for the duration of the EP procedure. For use in the electrophysiology lab (EP lab) only for procedural sedation with direct provider supervision and verbal order. RASS goal (-)2 to (-)3. Start at 25 mcg, Dose not to exceed 50 mcg/dose, 250 mcg/hr, or 20 mcg/kg per case., EP (Intra-Procedure), Routine 1144 (Given - Provider: Precious Park, PAT)1150 (Given - Provider: Precious Park RN) flumazeniL (Romazicon) (0.1 mg/mL) injection 0.2 mg 0.2 mg, Intravenous, EVERY 2 MIN PRN, 5 doses, Starting on Thu05/04/24 at 1058, Until Hilary 05/05/24 at 1709, for respiratory rate less than 8 or SpO2 less than 90% despite supplemental O2, For respiratory rate less than 8 per minute or SpO2 less than 90% despite supplemental O2, administer 0.2 mg every 2 minutes for the duration of the EP procedure. Maximum total dose 1 mg., EP (Intra-Procedure), Routine lidocaine (Xylocaine) 1% (10 mg/mL) injection 3 mg 3 mg (0.3 mL), Subcutaneous, ONCE PRN, 1 dose, Starting on Thu05/03/24 at 2135, Until Hilary 05/05/24 at 1709, for discomfort with PIV insertion, Routine 1122 (MAY Hold - Provider: Admin Adt - Reason: Transfer to a Procedural area)1244 (MAY Unhold - Provider: Admin Adt) melatonin tablet 3 mg 3 mg, Oral, NIGHTLY PRN, Starting on Thu05/03/24 at 2135, Until Hilary 05/05/24 at 1709, Sleep, Sleep, Routine 1122 (MAY Hold - Provider: Admin Adt - Reason: Transfer to a Procedural area)1244 (MAR Unhold - Provider: Admin Adt) midazolam (pf) (Versed) (1 mg/mL) injection 0.5-1 mg (CANCELED) 0.5-1 mg, Intravenous, EVERY 5 MIN PRN, Starting on Thu05/04/24 at 1058, Until Thu05/04/24 at 1244, Anxiety, As needed to induce or maintain moderate sedation per [facility] Moderate Sedation Policy for the duration of the EP procedure., As needed to induce or maintain moderate sedation per [facility] Moderate Sedation Policy for the duration of the EP procedure. For use in the electrophysiology lab (EP lab) only for procedural sedation with direct provider supervision and verbal order. RASS goal (-)2 to (-)3. Dose not to exceed 1 mg per dose, 5 mg/hour, or 0.2 mg/kg per case., EP (Intra-Procedure), Routine 1144 (Given - Provider: Precious Park RN) naloxone (Narcan) (0.4 mg/mL) injection 0.1 mg 0.1 mg, Intravenous, EVERY 2 MIN PRN, Starting on Thu05/04/24 at 1058, Until Hilary 05/05/24 at 1709, Opioid Reversal, for respiratory rate less than 8 per minute or SpO2 less than 90% despite supplemental O2,, For respiratory rate less than 8 per minute or SpO2 less than 90% despite supplemental O2, administer 0.1 mg every 2 minutes for the duration of the EP procedure. Maximum dose 0.8 mg., EP (Intra-Procedure), Routine ondansetron (pf) (Zofran) (2 mg/mL) injection 4 mg 4 mg, Intravenous, EVERY 15 MIN PRN, 2 doses, Starting on Thu05/04/24 at 1058, Until Hilary 05/05/24 at 1709, Nausea, As needed for nausea or vomiting, May repeat once for the duration of the EP procedure., EP (Intra-Procedure) perflutren protein-A microsphers (Optison) (0.22 mg/mL) injection 0.5 mL (COMPLETED) 0.5 mL, Intravenous, ONCE PRN, 1 dose, Starting on Thu05/04/24 at 1000, Until Thu05/04/24 at 1000, for enhancement of sub-optimal echo images, Echo Lab (Intra-Procedure), Routine 1000 (Given - Provider: Rolly Cash) sodium chloride 0.9 % (flush) (BD PosiFlush Normal Saline 0.9) flush 5-20 mL 5-20 mL, Intravenous, EVERY 1 MIN PRN, Starting on Thu05/03/24 at 2135, Until Hilary 05/05/24 at 1709, flush, Flush pertains to all indwelling lines. Flush per protocol found in the job aid using the link provided on this medication record., Routine 1122 (MAY Hold - Provider: Admin Adt - Reason: Transfer to a Procedural area)1244 (MAY Unhold - Provider: Admin Adt) documented in this encounter Care Teams Post Closer Relationship Specialty Start Date End Date None None PCP - General 04/08/24 documented as of this encounter
--- OUTSIDE RECORDS SUMMARY | 2024-05-10 10:58 | XMS_ITS | Encounter Summary ---
Author Organization [facility] Address [facility] [place] [address] Care Team Providers Care Community Relations Representative Name Role Phone None Primary Care Provider Unavailabl e Encounter Details Date Type Department Care Team (Late st Contact Info) Description 05/03/2024 External Results Transfer Center [facility] [place] [id number] Social History Tobacco Use Types Packs/Day Years Used Date Smoking Tobacco: Unknown Alcohol Use Standard Drinks/Week Comments Not Currently 0 (1 standard drink = 0.6 oz pur e alcohol) [facility] Utilities Answer Date Recorded In the [...] any time in the past 12 m onths, were you homeless or living in a jail (including now)? No 05/04/2024 DH IPV Inpatient [...] Procedure Name Priority Date/Time Associated Diagnosis Comments [facility] [place] EXTERNAL CARDIOLOGY RESULT Routine 05/03/2024 2:09 AM EST [facility] EXTERNAL CARDIOLOGY RESULT Routine 05/03/2024 2:08 AM EST documented in this encounter Results * External Cardiology Result (05/03/2024 2:09 AM EST) Anatomical Region Laterality Modality Other Historical Provider EXTERNAL CARDIOLO GY RESULT * External Cardiology Result (05/03/2024 2:08 AM EST) Anatomical Region Laterality Modality Other Historical Provider EXTERNAL CARDIOLO GY RESULT documented in this encounter Visit Diagnoses Not on filedocumented in this encounter Care Teams Community Relations Representative Relationship Specialty Start Date End Date None None PCP - General 04/08/24 documented as of this encounter
--- OUTSIDE RECORDS SUMMARY | 2024-05-10 10:58 | XMS_ITS | Encounter Summary ---
Author Organization [facility] [place] [address] Care Team Providers Care Care Connector Name Role Phone None Primary Care Provider Unavailabl e Reason for Visit * Auth/Cert (Routine) Specialty Diagnoses / Procedures Referred By Lidia t Referred To Contact Diagnoses Pacemaker generator end of life Chest Pain Procedures EMERGENCY OBSVO Abdirahman Serrano MD [facility] [place]AL [place] [address] [facility] Referral ID Status Reason Start Date Expiration Date Visits Re quested Visits Authorized [id number] 1 1 Encounter Details Date Type Department Care Team (Late st Contact Info) Description 05/04/2024 11:00 AM EST - 05/04/2024 12:30 PM EST Surgery [place] [address] Chrissie Ramirez MD [facility] [place] [address] ELECTROPHYSIOLOGY PROCEDURE Social History Tobacco Use Types Packs/Day Years Used Date Smoking Tobacco: Unknown Tobacco Cessation:Counseling Given: No Alcohol Use Standard Drinks/Week Comments Not Currently 0 (1 standard drink = 0.6 oz pur e alcohol) [facility] Utilities Answer Date Recorded In [...] any time in the past 12 m [facility], were you homeless or living in a group home (including now)? No 05/04/2024 DH IPV Inpatient [...] Sign Reading Time Taken Comments Blood Pressure 106/72 05/04/2024 12:20 PM EST Pulse 76 05/04/2024 12:20 PM EST Temperature 36.8 ??C (98.2 ??F) 05/04/2024 8:16 AM ES T Respiratory Rate 16 05/04/2024 12:1 0 PM EST Oxygen Saturation 92% 05/04/2024 12: 20 PM EST Inhaled Oxygen Concentration - - Weight 119.8 kg (264 lb 1.6 oz) 05/04/2024 6:42 AM EST Height 182.9 cm (6') 05/03/2024 8:55 PM EST Body Mass Index 35.4 05/03/2024 8:55 PM EST documented in this encounter Discharge Summaries * Puneet Miranda MD - 05/05/2024 2:30 PM EST Discharge Summary Patient Name: Deidra Medina Jr. Patient Age: 68 y.o. Language: Latvian Race: White Ethnicity: Not nor Admit date: [...] please contact your inpatient physician through the [facility] Supply Chain Business Analyst . Issues afterhours and on weekends will [...] not on any home meds, presented to ED with complaints of feeling unwell for [...] of 2.77 V EOS, replace device now (AUTO WASHER on Sep 2023 was 2.8 V), [facility] buckle inspector was contacted and documented: - between Feb [...] was initiated and the patient arrived to [facility] Cardiology unit this evening. Hospital Course: # Sinus node dysfunction (had Medtronic dual chamber pacemaker placed ~11 years ago) - now with EOSmessage that prompted trasnfer to [facility] Caridology service for ER evlaution and likely PPM replacement # Significant PVCs and Bigeminy # Chronic medical issues: -Untreated hypertension -Obesity BMI>35 presented to the ED with malaise and chest discomfort for the past six months [facility] was noted to have reached AUTO WASHER on 10/16/23. Pateint went for right-sided Medtronic [...] BMI (Calculated): 35.94 Height: 182.9 cm (6') (05/03/245) Weight: 118.4 kg (261 lb) (05/05/24 0600) Functional and Cognitive Status: alert and oriented. [...] appointments: During 8am-5pm Thursday through Thursday call [phone] to speak with a nurse in the cardiology clinic All other times call [phone] and ask to speak to the body service team member utilization management rn. Follow up Appointments: PCP None None . [...] appointments: During 8am-5pm Thursday through Thursday call [phone] to speak with a nurse in the cardiology clinic All other times call [phone] and ask to speak to the body service team member utilization management rn. Follow up Appointments: PCP None None . [...] note were not included. [facility] [place] [facility] CV HOSPITALIST 1 - [facility] DAILY PROGRESS NOTE Page [phone] to reach a provider 20/10 Admit Date: [...] in the last 168 hours. Recent Labs 05/03/242150 GLUCOSE 119 EKG:SR, 1st degree A-V block, [...] now with EOSmessage that prompted trasnfer to [facility] Caridology service for ER evlaution and likely [...] Admission Date: 05/03/2024 CHIEF COMPLAINT Transfer from [facility] ED for EP evaluation and likely a pacemaker replacement given EOS message HISTORY OF PRESENT ILLNESS Deidra Medina Jr. is a 68 y.o. male with medical history significant for sinus node dysfunction (had Medtronic dual chamber pacemaker placed ~11 years ago), not on any home meds, presented to ED with complaints of feeling unwell for [...] of 2.77 V EOS, replace device now (AUTO WASHER on Sep 2023 was 2.8 V), [facility] buckle inspector was contacted and documented: - between Feb [...] was initiated and the patient arrived to [facility] Cardiology unit this evening. REVIEW OF SYSTEMS [...] now with EOSmessage that prompted trasnfer to [facility] Caridology service for ER evlaution and likely [...] (Give Meds) Daily Healthy Menu Choices/Cardiac diet ([facility]-Diet) Current DVT: SCD, SCD Code status: Attempt Cardiopulmonary Resuscitation - Inpatient Disposition: TBD Abdirahman Serrano MD, MPH Hospital Medicine Pager: [phone] 05/03/2024 documented in this encounter Miscellaneous Notes * Plan of Care - Pauline, Mario L, RN - 05/05/2024 2:54 PM EST Pt belongings gathered and w/ patient. Wheelchair provided for transport to main gate. AVS reviewed, questions regarding new BP med losartan answered. No other health concerns from pt, d/c home via [place] [facility] med[place] services. Problem: Adult Inpatient Plan [...] - 05/05/2024 2:49 PM ESTSummary: Discharge Ride Paper Reeler scheduled a discharge ride for patient with [facility][phone]. STEREOTYPER APPRENTICE WILL BANK CONSULTANT PATIENT AT MAIN ENTRANCE AT 3:15PM and bring patient to home address: [address] [place] [address]. Part Time's name is Sea and Sea drives a [employer] Prius. * Consult Note - Diamante Guallpa LPN [...] Referrals & Follow-up Care: Patient provided 1-800 [facility] phone number to establish with aPCP. Transportation: family or friend will provide Wheelchair van/Ambulance? No Functional status prior to admission: Independent Home Environment: Others in the home: alone. Current Living Arrangements: home/apartment/condo. Accessibility Concerns:lives in a 2 story alone. 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 Current Functional Ability: Independent DME used at home: none DME Needed at Discharge: none Patient is insured through: Primary Insurance: [employer] MANAGED MEDICARE Payor: HUMANA [...] without services. Patient has been provided 1-800 [facility] phone number to establish with a PCP. Mary Carmen Norton RN Care Manager - [facility] Office of Care Management * [...] Note Patient Name: Deidra Medina Jr. : [id number] MR#: [id number] Case Date: 05/04/2024 Surgeon: Surgeons and Role: * Chrissie Ramirez MD - Primary Preoperative diagnosis: PACEMAKER AT END OF LIFE Postoperative diagnosis: * No post-op diagnosis entered * Procedure(s) (LRB): ELECTROPHYSIOLOGY PROCEDURE (Right) Anesthesia: Anesthesia type not filed in the log. Findings: successful replacement of dual chamber PM generator for pacemaker at [facility] Complications: none apparent Intake: Intraprocedure Crystalloid Total None Transfusion No data found in the last 1 encounters. Output: Estimated Blood Loss: Urine Output:: (no urine output recorded) Other Output: (no other output recorded) Drains: none Specimens removed during surgery: pacemaker generator with battery at [facility], returned to employment consultant Disposition: aroused from sedation, and taken to [...] Team, bedside nurse, medical record, and Patient CM/DIRECTOR CRITICAL CARE met with patient face to face. Introduced self/reviewed role; services accepted. Admitted From: Home Reason for Hospitalization: Pacemaker replacement Past medical History: No past medical history on file. Hospitalizations Within the Past 30 Days: no previous admission in last 30 days Current Decision-Making Capacity: Self If AD's have not been completed the following surrogate would be surrogate decision maker per [place] surrogate decision making law. (Only good for 180 days) Any patient receiving care in [place] must abide by [place] law. The hierarchy for surrogate decision making [...] (i) The agent with financial power of sports attorney or a conservator appointed in accordance with [...] a 2 story alone. 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 In the last 12 months, was there a time when you were not able to pay the mortgage or rent on time?: No At any time in the past 12 months, were you homeless or living in a group home (including now)?: No In the past 12 months has the [employer], gas, oil, or water [employer] threatened to shut off services in your [...] Current DME: none Home Address confirmed as: [address] [place] [phone] Social & Family Supports: All names listed [...] Coverage: Primary Insurance: HUMANA MANAGED MEDICARE Payor: [employer] [address] MANAGED MEDICARE / Plan: [employer] [address] PPO MANAGED MEDICARE / Product Type: *No Product type* / Secondary Insurance: N/A ; Prescription Coverage: Yes Are you financially able to cover the cost / copay of your medications?: Yes Preferred Pharmacy: [facility] [address] [address] [place] Status: Patient is a : No Primary Care Provider confirmed: None None-- I gave the 1-800 [facility] to find a provider Patient/Caregiver Goals of Treatment: to return to home and work Potential Needs for Transition of Care: none Agency Referrals: Not Applicable Transportation: no concerns Transportation Anticipated: family or friend will provide Medications Anticipated: patient able to case picker Concerns to be Addressed: denies needs/concerns at this time Assessment: Patient is admitted to Cardio service for pacemaker service Plan going forward: consult to EP Care Management team will continue to follow and assist with discharge planning and coordination ofcare as indicated. Abdi Toure SKI PATROL DIRECTOR CCM * Consult Note - Chrissie Ramirez [...] past six months and when evaluated at [facility], his pacemaker was noted to have reached AUTO WASHER on 10/16/23. Review of Systems: Constitutional: + [...] pacing ~65 bpm. Device Interrogation: Data Generator: Venmo Kenny VENTURA MRI A2DR01 / [id number] - Right-sided implant 06/13/13 RA Lead: Medtronic 5086 CapSureFix MRI / [id number]; 06/13/13 RV Lead: Medtronic 5086 CapSureFix MRI / [id number]; 06/13/13 Alerts EOS: REPLACE DEVICE IMMEDIATELY. Diagnostics Pacing Mode: VVI @ 65 bpm Presenting EGMs: VS BOILER INSTALLER Underlying Rhythm: Sinus Atrial Episodes: 0 Ventricular [...] past six months and when evaluated at [facility], his pacemaker was noted to have reached AUTO WASHER on 10/16/23. - Schedule for right-sided Medtronic [...] Consult Attending: Chrissie Ramirez MD Service Pager: [phone] Staff addendum: I have seen and evaluated the patient, and reviewed the available medical records. I agree with the findings, physical examination, and assessment of Candido Lucianoodeau as detailed above. This patient has arrived [...] View (05/04/2024 1:46 PM EST) WORKSTATION ID [id number] RAD Anatomical Region Laterality Modality Chest N/A Digital Radiogra phy Impressions 05/04/2024 1:51 PM EST Expected appearance to pacemaker leads Thank you for letting us participate in the care of this patient. ??If you are a health care provider and have any questions regarding this report, please contact the number below. ??For patients who have questions please contact the health director critical care that requested your imaging first. ? Narrative [...] patients who have questions please contactthe health director critical care that requested your imaging first. uPneet Miranda MD IMG DX ORDERABLES * ELECTROPHYSIOLOGY PROCEDURE (05/04/2024 12:18 PM EST) Anatomical Region Laterality Modality Other Narrative 05/09/2024 8:02 AM EST Table formatting from the original result was not included. [facility] ELECTROPHYSIOLOGY PROCEDURE NOTE PROCEDURE: dual chamber pacemaker generator change PATIENT HISTORY: 68 y.o. man with SND s/p dual chamber PPM implantation remotely who presented with generator at EOS ROLL CUTTER: Chrissie Ramirez MD ASSISSTANT: None PROCEDURE: Informed [...] to the skin. HARDWARE RETAINED AND USED: Marketing Assistant Model # Serial # Implant Date Atrial Lead MDT ??5086-45 [id number] 06/13/13 Ventricular Lead MDT 5086-52 [id number] 06/13/13 HARDWARE REMOVED: Marketing Assistant Model # Serial # Implant Date Generator MDT Advisa [id number] 06/13/13 HARDWARE IMPLANTED: Marketing Assistant Model # Serial # Generator MDT [place] ??[id number] PACE/SENSE DATA: Sensed wave (mV) Threshold (V) [...] EST Narrative 05/04/2024 10:07 AM EST 1 [place] [address] ? Echocardiogram Report Name: DEIDRA MEDINA JR ? Study Date: 05/04/2024 08:55 AMBP: 120/69 mmHg : 1955 ? Height: 183 cm ? Account: [id number] Age: 68 yrs ? Weight: 120 kg Gender: Male ?BSA: 2.4 m2 Ordering Physician: PUNEET MIRANDA Referring Physician: NILE GAO Performed By: Rolly Cash RDCS Reason For Study: pacemaker generator end of life Exam Location: [facility]. Interpretation Summary - Very technically limited study. - Left ventricular ejection fraction is estimated visually at 30-35%. Procedure Complete-84544. Image enhancement Optison was used for left [...] Note Angelito Murphy MD - 05/04/2024 1 [place] [address] Echocardiogram Report Name: DEIDRA MEDINA JR Study Date: 508:55 AMBP: 120/69 mmHg : 1955 Height: 183 cm Account: [id number] Age: 68 yrs Weight: 120 kg Gender: Male BSA: 2.4 m2 Ordering Physician: PUNEET MIRANDA Referring Physician: NILE GAO Performed By: Rolly Cash RDCS Reason For Study: pacemaker generator end of life Exam Location: [facility]. Interpretation Summary - Very technically limited study. - Left ventricular ejection fraction is estimated visually at 30-35%. Procedure Complete-02355. Image enhancement Optison was used for left [...] (ABNORMAL) CBC (with Diff) (05/04/2024 3:24 AM EST) White Blood Cell 7.98 4.00 - 9.50 x10(3)/mc L 05/04/2024 3:52 AM EST [facility] Red Blood Cell 4.52(L) 4.58 - 5.54 x10(6)/mc L 05/04/2024 3:[address] [facility] Hemoglobin 15.0 13.7 - 16.5 g/dL 05/04/2024 3:[address] [facility] Hematocrit 45.6 40.5 - 48.5 % 05/04/2024 3:[address] [facility] Mean Cell Volume 100.9(H) 82.9 - 93.1 fL 05/04/2024 3:[address] [facility] Mean Cell Hemoglobin 33.2(H) 27.5 - 32.1 pg 05/04/2024 3:[address] [facility] Mean Cell Hemoglobin Concentration 32.9 32.0 - 35.7 g/dL 05/04/2024 3:[address] [facility] Platelet 198 145 - 357 x10(3)/mc L 05/04/2024 3:[address] [facility] Mean Platelet Volume 11.5 7.6 - 12.9 fL 05/04/2024 3:[address] [facility] RDW Standard Deviation 47.5(H) 36.0 - 45.0 fL 05/04/2024 3:[address] [facility] RDW coefficient of variation 12.6 11.4 - 13.8 % 05/04/2024 3:[address] [facility] NRBC% auto 0.0 % 05/04/2024 3:[address] [facility] NRBC Absolute <0.01 <0.01 x10(3)/mc L 05/04/2024 3:[address] [facility] Neutrophil % 62.9 % 05/04/2024 3:[address] [facility] Neutrophil Absolute (ANC) - Automated 5.03 1.70 - 6.10 x10(3)/mc L 05/04/2024 3:[address] [facility] Lymph % 24.6 % 05/04/2024 3:[address] [facility] Lymph Absolute 1.96 0.90 - 3.20 x10(3)/mc L 05/04/2024 3:52 AM EST [facility] Monocyte % 9.1 % 05/04/2024 3:52 AM EST [facility] Monocyte Absolute 0.73 0.30 - 0.90 x10(3)/mc L 05/04/2024 3:52 AM EST [facility] Eos % 1.8 % 05/04/2024 3:52 AM EST [facility] Eos Absolute 0.14 0.00 - 0.40 x10(3)/mc L 05/04/2024 3:52 AM EST [facility] Basophil % 1.3 % 05/04/2024 3:[address] [facility] Baso Absolute 0.10 0.00 - 0.10 x10(3)/mc L 05/04/2024 3:[address] [facility] Immature Gran % 0.3 % 3:[address] [facility] Immature Gran Absolute <0.04 0.00 - 0.04 x10(3)/mc L 05/04/2024 3:[address] [facility] Blood VENOUS BLOOD SPECIMEN / Unknown Venipuncture / Unknown 05/04/2024 3:24 AM EST 05/04/2024 3:44 AM EST Abdirahman Serrano MD HEMATOLOGY ORDERABL ES [facility] [address] * EKG 12 Lead (05/03/2024 9:56 PM EST) Ventricular rate 77 BPM MUSE SYSTEM Atrial Rate 77 BPM MUSE SYSTEM P-R Interval 244 ms MUSE SYSTEM QRS Duration 142 ms MUSE SYSTEM Q-T Interval 430 ms MUSE SYSTEM QTC Calculated (Bezet) 486 ms MUSE SYSTEM Calculated P [place] 65 degrees MUSE SYSTEM Calculated R [place] -54 degrees MUSE SYSTEM Calculated T [place] 37 degrees MUSE SYSTEM INTERPRETATION Sinus rhythm with 1st degree A-V block Occasional ventricular-paced complexes and with frequent Premature ventricular complexes Left axis deviation Non-specific intra-ventricular conduction block Minimal voltage criteria for LVH, may be normal variant ( Ryder product ) Cannot rule out Anterior infarct , age undetermined Abnormal ECG When compared with ECG of 22-AUG-1993 16:15, Electronic ventricular pacemaker is now present I personally reviewed the tracing and edited the fellows interpretation Confirmed by fellow Peter Ospina [id number]) on 05/04/2024 9:03:56 AM Confirmed by MD Contreras Jon ([id number]) on 05/04/2024 2:16:26 PM MUSE SYSTEM 05/03/2024 9:56 PM EST 05/04/2024 2:16 PM EST Abdirahman Serrano MD ECG ORDERABLES Performing Organization Address City/[facility] Co ms Phone Number MUSE SYSTEM * T4, free (05/03/2024 9:51 PM EST) Free T4 1.05 0.93 - 1.70 ng/dL 05/03/2024 11:01 PM EST [facility] Blood VENOUS BLOOD SPECIMEN / Unknown Venipuncture / Unknown 05/03/2024 9:51 PM EST 05/03/2024 9:56 PM EST Abdirahman Serrano MD CHEMISTRY ORDERABLE S Performing Organization Address [facility] Co de Phone Number [facility] [place] [address] * APTT (05/03/2024 9:51 PM EST) Partial Thromboplastin Time 29 25 - 37 sec 05/03/2024 10:08 PM EST [facility] Comment: The PTT is NOT appropriate for heparin monitoring. Use the Anti-Xa level for heparin monitoring (HEP UFH) or LMWH monitoring (HEP LMW). A PTT less than 37 seconds generally indicates adequate hemostasis. Blood VENOUS BLOOD SPECIMEN / Unknown Venipuncture / Unknown 05/03/2024 9:51 PM EST 05/03/2024 9:56 PM EST Abdirahman Serrano MD HEMATOLOGY ORDERABL ES [facility] [place] [address] * (ABNORMAL) Prothrombin Time (05/03/2024 9:51 PM EST) Pathologist [facility] Prothrombin Time 12.7(H) 9.4 - 12.5 sec 05/03/2024 10:08 PM EST [facility] International Normalization Ratio 1.1 <=4.9 05/03/2024 10:08 PM EST [facility] Comment: An INR < 2.0 indicates [...] MD HEMATOLOGY ORDERABL ES Performing Organization Address City/[facility]/ZIP Co de Phone Number [facility] [place] [address] * (ABNORMAL) Troponin - Single (05/03/2024 9:51 PM EST) [facility] Troponin-T, High Sensitivity 27(H) <=22 ng/L 05/03/2024 10:32 PM EST [facility] Comment: This patient's troponin T concentration [...] troponin value can be found in the [facility] Test Catalog Troponin - https://[facility].testcatalog.org/catalogs/565/files/86084 Reference: Fourth [place] Definition of Myocardial Infarction. Journal of the [place] College of Cardiology 2018;72:4522-6606 Blood VENOUS BLOOD SPECIMEN / Unknown Venipuncture / Unknown 05/03/2024 9:51 PM EST 05/03/2024 9:56 PM EST Abdirahman Serrano MD CHEMISTRY ORDERABLE S Performing Organization Address City/[facility]/ZIP Co de Phone Number [facility] [place] [address] * (ABNORMAL) TSH [place] (05/03/2024 9:51 PM EST) Thyroid Stimulating Hormone 8.98(H) 0.27 - 4.20 mcIU/mL 05/03/2024 10:32 PM EST [facility] Blood VENOUS BLOOD SPECIMEN / Unknown Venipuncture / Unknown 05/03/2024 9:51 PM EST 05/03/2024 9:56 PM EST Abdirahman Serrano MD CHEMISTRY ORDERABLE S [facility] [place] [address] * Magnesium (05/03/2024 9:51 PM EST) Magnesium 0.85 0.69 - 1.07 mMol/L 05/03/2024 10:32 PM EST [facility] Blood VENOUS BLOOD SPECIMEN / Unknown Venipuncture / Unknown 05/03/2024 9:51 PM EST 05/03/2024 9:56 PM EST Abdirahman Serrano MD CHEMISTRY ORDERABLE S [facility] [place] [address] * Basic Metabolic Panel (05/03/2024 9:51 PM EST) Glucose 119 65 - 199 mg/dL 05/03/2024 10:[address] [facility] Comment:Glucose Concentratio n >=200 mg/dL plus symptoms is consistent with Diabetes Mellitus. Blood Urea Nitrogen 17 10 - 20 mg/dL 05/03/2024 10:32 PM EST [facility] Creatinine 1.09 0.80 - 1.50 mg/dL 05/03/2024 10:[address] [facility] Sodium 138 135 - 145 mMol/L 05/03/2024 10:[address] [facility] Potassium 3.9 3.5 - 5.0 mMol/L 05/03/2024 10:[address] [facility] Chloride 104 98 - 107 mMol/L 05/03/2024 10:[address] [facility] Carbon Dioxide 24 22 - 31 mMol/L 05/03/2024 10:[address] [facility] Anion Gap 10 5 - 15 mMol/L 05/03/2024 10:[address] [facility] Calcium 9.1 8.5 - 10.5 mg/dL 05/03/2024 10:[address] [facility] Est Glomerular Filtration Rate - Male 73 mL/min/1. 73 m?? 05/03/2024 10:[address] [facility] Comment: This patient's estimated GFR was [...] EST Abdirahman Serrano MD CHEMISTRY ORDERABLE S [facility] [place] [address] * (ABNORMAL) CBC (with Diff) (05/03/2024 9:51 PM EST) White Blood Cell 7.39 4.00 - 9.50 x10(3)/mc L 05/03/2024 10:[address] [facility] Red Blood Cell 4.56(L) 4.58 - 5.54 x10(6)/mc L 05/03/2024 10:[address] [facility] Hemoglobin 15.3 13.7 - 16.5 g/dL 05/03/2024 10:[address] [facility] Hematocrit 44.8 40.5 - 48.5 % 05/03/2024 10:[address] [facility] Mean Cell Volume 98.2(H) 82.9 - 93.1 fL 05/03/2024 10:[address] [facility] Mean Cell Hemoglobin 33.6(H) 27.5 - 32.1 pg 05/03/2024 10:[address] [facility] Mean Cell Hemoglobin Concentration 34.2 32.0 - 35.7 g/dL 05/03/2024 10:[address] [facility] Platelet 190 145 - 357 x10(3)/mc L 05/03/2024 10:[address] [facility] Mean Platelet Volume 11.7 7.6 - 12.9 fL 05/03/2024 10:[address] [facility] RDW Standard Deviation 46.2(H) 36.0 - 45.0 fL 05/03/2024 10:[address] [facility] RDW coefficient of variation 12.8 11.4 - 13.8 % 05/03/2024 10:[address] [facility] NRBC% auto 0.0 % 05/03/2024 10:[address] [facility] NRBC Absolute <0.01 <0.01 x10(3)/mc L 05/03/2024 10:00 PM [facility] Neutrophil % 70.5 % 05/03/2024 10:00 PM [facility] [facility] Neutrophil Absolute (ANC) - Automated 5.21 1.70 - 6.10 x10(3)/mc L 05/03/2024 10:[address] [facility] Lymph % 19.4 % 05/03/2024 10:00 PM [facility] Lymph Absolute 1.43 0.90 - 3.20 x10(3)/mc L 05/03/2024 10:[address] [facility] Monocyte % 7.7 % 05/03/2024 10:[address] [facility] Monocyte Absolute 0.57 0.30 - 0.90 x10(3)/mc L 05/03/2024 10:[address] [facility] Eos % 1.2 % 05/03/2024 10:[address] [facility] Eos Absolute 0.09 0.00 - 0.40 x10(3)/mc L 05/03/2024 10:[address] [facility] Basophil % 0.9 % 05/03/2024 10:[address] [facility] Baso Absolute 0.07 0.00 - 0.10 x10(3)/mc L 05/03/2024 10:[address] [facility] Immature Gran % 0.3 % 10:[address] [facility] Immature Gran Absolute <0.04 0.00 - 0.04 x10(3)/mc L 05/03/2024 10:[address] [facility] Blood VENOUS BLOOD SPECIMEN / Unknown Venipuncture / Unknown 05/03/2024 9:51 PM EST 05/03/2024 9:56 PM EST Abdirahman Serrano MD HEMATOLOGY ORDERABL ES [facility] [place] [address] documented in this encounter Visit Diagnoses Not on filedocumented in this encounter Admitting Diagnoses Diagnosis Pacemaker [...] Given 05/03/2024 10:35 PM EST 2.5 mg BUPivacaine (pf) (Marcaine) (5 mg/mL) 0.5% injection 150 mg 150 mg (30 mL), Subcutaneous, ONCE, 1 dose, On Thu05/04/24 at 1115, EP (Intra-Procedure), Routine Given 05/04/2024 11:42 AM EST 30 mLs ceFAZolin (Ancef) 2 g vial attach to sodium chloride 0.9% 100 mL Mini-Bag Plus 2 g, Intravenous, ONCE, 1 dose, On Thu05/04/24 at 1115, Administer over 30 Minutes, For use in the electrophysiology lab (EP lab) only with direct provider supervision and verbal order., EP (Intra-Procedure), Indication for (Active or Suspected): Prophylaxis New Bag 05/04/2024 11:35 AM EST 2 g ceFAZolin (Ancef) injection 3 g 3 g, Intravenous, ONCE PRN, Starting on Thu05/04/24 at 1232, Until Thu05/04/24 at 1631, per Dr. Ramirez, Cath (Intra-Procedure), Routine, Indication for (Active or Suspected): Prophylaxis Given 05/04/2024 11:35 AM EST 3 g fentaNYL (PF) (50 mcg/mL) injection 25-50 mcg 25-50 mcg, Intravenous, EVERY 5 MIN PRN, Starting on Thu05/04/24 at 1058, Until Thu05/04/24 at 1244, Pain, As needed to induce or maintain moderate sedation per [facility] [place] for the duration of the EP procedure., As needed to induce or maintain moderate sedation per [facility] [place] for the duration of the EP procedure. For use in the electrophysiology lab (EP lab) only for procedural sedation with direct provider supervision and verbal order. RASS goal (-)2 to (-)3. Start at 25 mcg, Dose not to exceed 50 mcg/dose, 250 mcg/hr, or 20 mcg/kg per case., EP (Intra-Procedure), Routine Given 05/04/2024 11:50 AM EST 25 mcg Given 05/04/2024 11:44 AM EST 50 mcg flumazeniL (Romazicon) (0.1 mg/mL) injection 0.2 mg [...] 1 mg., EP (Intra-Procedure), Routine lidocaine (Xylocaine) (20 mg/mL) 2% injection 400 mg 400 mg (20 mL), Subcutaneous, ONCE, 1 dose, On Thu05/04/24 at 1115, EP (Intra-Procedure), Routine Given 05/04/2024 11:42 AM EST 20 mLs lidocaine (Xylocaine) 1% (10 mg/mL) injection 3 [...] Hilary 05/05/24 at 1709, Sleep, Sleep, Routine midazolam (pf) (Versed) (1 mg/mL) injection 0.5-1 mg 0.5-1 mg, Intravenous, EVERY 5 MIN PRN, Starting on Thu05/04/24 at 1058, Until Thu05/04/24 at 1244, Anxiety, As needed to induce or maintain moderate sedation per [facility] [place] for the duration of the EP procedure., As needed to induce or maintain moderate sedation per [facility] [place] Sed[place] for the duration of the EP procedure. For use in the electrophysiology lab (EP lab) only for procedural sedation with direct provider supervision and verbal order. RASS goal (-)2 to (-)3. Dose not to exceed 1 mg per dose, 5 mg/hour, or 0.2 mg/kg per case., EP (Intra-Procedure), Routine Given 05/04/2024 11:44 AM EST 1 mg naloxone (Narcan) (0.4 mg/mL) injection 0.1 mg [...] link provided on this medication record., Routine vancomycin (Vancocin) injection 1,000 mg 1,000 mg (1 g), Topical (Top), ONCE, 1 dose, On Thu05/04/24 at 1115, Warning Vesicant/Irritant Medication , EP (Intra-Procedure), Routine, Indication for (Active or Suspected): Prophylaxis Given 05/04/2024 11:42 AM EST 1 g documented in this encounter Active and Recently [...] area)1244 (MAR Unhold - Provider: Admin Adt) 0908 (Given - Provider: Mario Carpenter, PAT) BUPivacaine (pf) (Marcaine) (5 mg/mL) 0.5% injection 150 mg (COMPLETED) 150 mg (30 mL), Subcutaneous, ONCE, 1 dose, On Thu05/04/24 at 1115, EP (Intra-Procedure), Routine 111 (Due)1142 (Given - Provider: Precious Park RN) [...] on Thu05/03/24 at 2200, Until Discontinued, Routine 5 (Given - Provider: Kai Cifuentes RN) 0916 (Given - Provider: Aliza Doll RN)1122 (MAY Hold - Provider: Admin Adt - Reason: Transfer to a Procedural area)1244 (MAY Unhold - Provider: Admin Adt)2009 (Given - Provider: Kai Cifuentes RN) 0909 (Given - Provider: Mario Carpenter RN) [...] PRN pain medications are ordered., Routine 1122 (MAR Hold - Provider: Admin Adt - Reason: Transfer to a Procedural area)1244 (MAR Unhold - Provider: Admin Adt) ceFAZolin (Ancef) [...] to induce or maintain moderate sedation per [facility] [place] Sed[place] Policy for the duration of the EP procedure., As needed to induce or maintain moderate sedation per [facility] [place] Sed[place] Policy for the duration of the EP procedure. For use in the electrophysiology lab (EP lab) only for procedural sedation with direct provider supervision and verbal order. RASS goal (-)2 to (-)3. Start at 25 mcg, Dose not to exceed 50 mcg/dose, 250 mcg/hr, or 20 mcg/kg per case., EP (Intra-Procedure), Routine 1144 (Given - Provider: Precious Park, RN)1150 (Given - Provider: Precious Park, RN) flumazeniL (Romazicon) (0.1 mg/mL) injection 0.2 [...] area)1244 (MAY Unhold - Provider: Admin Adt) midazolam (pf) (Versed) (1 mg/mL) injection 0.5-1 mg (CANCELED) 0.5-1 mg, Intravenous, EVERY 5 MIN PRN, Starting on Thu05/04/24 at 1058, Until Thu05/04/24 at 1244, Anxiety, As needed to induce or maintain moderate sedation per [facility] [place] Sed[place] Policy for the duration of the EP procedure., As needed to induce or maintain moderate sedation per [facility] [place]erate Sedation Policy for the duration of [...] Adt) documented in this encounter Care Teams Care Connector Relationship Specialty Start Date End Date None None PCP - General 04/08/24 documented as of this encounter
--- OUTSIDE RECORDS SUMMARY | 2024-05-10 10:58 | XMS_ITS | Clinical Summary ---
Author Organization [facility] Address [address] [place] [address] Care Team Providers Care Asphalt Screed Operator Name Role Phone Unavailable Primary Care Provider [...]
--- OUTSIDE RECORDS SUMMARY | 2024-05-10 10:58 | XMS_ITS | Clinical Summary ---
Author Organization [facility] Address [facility] [place] [address] Care Team Providers Care Special Needs Caregiver Name Role Phone None Primary Care Provider Unavailabl e Allergies Active Allergy Reactions Criticality Noted Date Comments Cis Free Text Allergy muscle relaxants. Medications Medication Sig Dispensed Refills Start Date End Date Status losartan (Cozaar) 25 mg tablet Take 0.5 tablets by mouth daily. 90 tablet 3 05/05/2024 Active Active Problems Problem Noted Date Diagnosed Date Pacemaker 05/05/2024 Pacemaker generator end of life 05/03/2024 Encounters Date Type Department Care Team Description 05/04/2024 11:00 AM EST - 05/04/2024 12:30 PM EST Surgery Electrophysiology Lab at [place] [phone] Chrissie Ramirez MD ELECTROPHYSIOLOGY PROCEDURE 05/03/2024 8:41 PM EST - 05/05/2024 3:09 PM EST Hospital Encounter Heart and Vascular Unit Level 3 Wing B at [place] [phone] Marianela Vaz MD Radovanovic, Milan, MD Kussaga, Frank M, MD Pacemaker generator end of life; Chest pain, unspecified type; Hypertension, unspecified type Discharge Disposition: Home 05/03/2024 Telephone Cardiology at [address] [phone] Zahida Disla MD 05/03/2024 External Results Transfer [place] [phone] from Last 3 Months Social History Tobacco Use Types Packs/Day Years Used Date Smoking Tobacco: Unknown Tobacco Cessation:Counseling Given: No Alcohol Use Standard Drinks/Week Comments Not Currently 0 (1 standard drink = 0.6 oz pur e alcohol) [facility] Utilities Answer Date Recorded In the past [...] any time in the past 12 m [facility], were you homeless or living in a snf (including now)? No 05/04/2024 DH IPV Inpatient [...] on file Sexual Orientation Not on file Last Filed Vital Signs Vital Sign Reading [...] Mass Index 35.4 05/03/2024 8:55 PM EST Plan of Treatment Health Maintenance Due Date Last Done Comments CT Colonography 1955 Colonoscopy 1955 Colorectal Cancer Screening 1955 FIT DNA 1955 FIT 1955 Sigmoidoscopy (10 year) with FIT yearly 1955 Sigmoidoscopy 1955 Hepatitis C Screening 06/14/1971 Lipid Screening 06/14/1971 Tetanus/Diphtheria/Pertussis Vaccines (1 - Tdap) 06/13 Pneumoccocal Vaccine: 50+ (1 of 1 - PCV) 06/14/2003 Zoster vaccine (1 of 2) 06/14/2003 Advance Directive 2008 Covid-19 Vaccine (1 - season) 2023 Influenza (Flu) vaccine (1 o f 1 - Influenza standard series) 11/29/2023 Diabetes Screening (HgbA1C or Glucose) 05/03/2027 Medical Devices Implanted Type Area Can Intake Worker Device Identifier Shelf Expiration Date Model / Serial / Lot Mdt Ra Lead- 4 Implanted: (Quantity not on file) Lead Heart [employer] 5086 / [id number] / t Rv Lead- 4 Implanted: (Quantity not on file) Lead Heart [employer] 5086 / [id number] / Mdt Aidee- 5 Implanted:07/2024 by Chrissie Ramirez MD (Quantity not on file) Pacemaker Chest Wall [employer] [id number] / [id number] / Procedures Procedure Name Priority Date/Time Associated Diagnosis Comments SCAN DOC: TELEMETRY STRIPS 05/05/2024 11:09 AM EST SCAN DOC: TELEMETRY STRIPS 05/05/2024 8:10 AM EST EKG 12-LEAD Routine 05/04/2024 4:52 PM EST SCAN DOC: TELEMETRY STRIPS 05/04/2024 4:41 PM EST XR CHEST ONE VIEW STAT 05/04/2024 1:4 6 PM EST SCAN DOC: TELEMETRY STRIPS 05/04/2024 1:00 PM EST ELECTROPHYSIOLOGY PROCEDURE Routine 05/04/2024 12:18 PM EST ECHO COMPLETE W CONTRAST Routine 025 10:00 AM EST Pacemaker generator end of life Chest pain, unspecified type SCAN DOC: TELEMETRY STRIPS 05/04/2024 7:57 AM EST SCAN DOC: TELEMETRY STRIPS 05/04/2024 7:40 AM EST SCAN DOC: TELEMETRY STRIPS 05/04/2024 5:02 AM EST CBC (WITH DIFF) Routine 05/04/2024 3:24 AM EST EKG 12-LEAD STAT 05/03/2024 9:56 PM EST Pacemaker generator end of life T4, FREE Routine 05/03/2024 9:51 PM EST HC PARTIAL THROMBOPLASTIN TIME Routine 05/03/2024 9:51 PM EST PROTHROMBIN TIME Routine 05/03/2024 9:51 PM EST TROPONIN - SINGLE STAT 05/03/2024 9:5 1 PM EST TSH CASCADE Routine 05/03/2024 9:51 PM EST MAGNESIUM STAT 05/03/2024 9:51 PM EST BASIC METABOLIC PANEL STAT 05/03/2024 9:51 PM EST CBC (WITH DIFF) STAT 05/03/2024 9:51 PM EST SCAN DOC: TELEMETRY STRIPS 05/03/2024 9:15 PM EST [facility] [place] [place] Routine 05/03/2024 2:09 AM EST [facility] [place] Routine 05/03/2024 2:08 AM EST from Last 3 Months Results * Scan Doc: Telemetry Strips (05/05/2024 11:09 AM EST) Only the most recent of8 resultswithin the time period is included. Narrative 05/05/2024 11:09 AM EST Ordered by an unspecified provider. Scanning Provider MEDIA MGR SCAN EXT O RDR/RSLT * EKG 12 Lead (05/04/2024 4:52 PM EST) Only the most recent of2 resultswithin the time period is included. Ventricular rate 70 BPM MUSE SYSTEM Atrial Rate 70 BPM MUSE SYSTEM P-R Interval 252 ms MUSE SYSTEM QRS Duration 140 ms MUSE SYSTEM Q-T Interval 422 ms MUSE SYSTEM QTC Calculated (Bezet) 455 ms MUSE SYSTEM Calculated P [place] 48 degrees MUSE SYSTEM Calculated R [place] -50 degrees MUSE SYSTEM Calculated T [place] 131 degrees MUSE SYSTEM INTERPRETATION Sinus rhythm with 1st degree A-V block Occasional Premature ventricular complexes ??and atrial pacing Left axis deviation Left ventricular hypertrophy with QRS widening ( R in aVL , Ryder product ) Nonspecific T wave abnormality Abnormal ECG When compared with ECG of 03-MAY-2024 21:56, Sinus rhythm has replaced Electronic ventricular pacemaker Confirmed by MD ZEPEDA SALVATORE ([id number]) on 05/05/2024 2:27:23 PM MUSE SYSTEM 05/04/2024 4:52 PM EST 05/05/2024 2:27 PM EST Unknown ECG ORDERABLES MUSE SYSTEM * XR Chest One View (05/04/2024 1:46 PM EST) WORKSTATION ID [id number] [facility] Anatomical Region Laterality Modality Chest N/A Digital Radiogra phy Impressions 05/04/2024 1:51 PM EST Expected appearance to pacemaker leads Thank you for letting us participate in the care of this patient. ??If you are a health care provider and have any questions regarding this report, please contact the number below. ??For patients who have questions please contact the health career services assistant that requested your imaging first. ? Narrative [...] who have questions please contactthe health career services assistant that requested your imaging first. Puneet Lucero MD IMG DX ORDERABLES * ELECTROPHYSIOLOGY PROCEDURE (05/04/2024 12:18 PM EST) Anatomical Region Laterality Modality Other Narrative 05/09/2024 8:02 AM EST Table formatting from the original result was not included. [facility] ELECTROPHYSIOLOGY PROCEDURE NOTE PROCEDURE: dual chamber pacemaker generator change PATIENT HISTORY: 68 y.o. man with SND s/p dual chamber PPM implantation remotely who presented with generator at [facility] SLP TEACHER: Chrissie Ramirez MD ASSISSTANT: None PROCEDURE: Informed [...] to the skin. HARDWARE RETAINED AND USED: Can Intake Worker Model # Serial # Implant Date Atrial Lead SWAPNIL ??5086-45 [id number] 06/13/13 Ventricular Lead SWAPNIL 5086-52 [id number] 06/13/13 HARDWARE REMOVED: Can Intake Worker Model # Serial # Implant Date Generator SWAPNIL Cox [id number] 06/13/13 HARDWARE IMPLANTED: Can Intake Worker Model # Serial # Generator SWAPNIL Hoskins ??[id number] PACE/SENSE DATA: Sensed wave (mV) Threshold (V) [...] EST Narrative 05/04/2024 10:07 AM EST [address] [place] [address] ? Echocardiogram Report Name: DEIDRA MEDINA JR ? Study Date: 05/04/2024 08:55 AMBP: 120/69 mmHg : 1955 ? Height: 183 cm ? Account: [id number] Age: 68 yrs ? Weight: 120 kg Gender: Male ?BSA: 2.4 m2 Ordering Physician: PUNEET LUCERO Referring Physician: NILE GAO Performed By: Rolly Cash RDCS Reason For Study: pacemaker generator end of life Exam Location: [facility]. Interpretation Summary - Very technically limited study. - Left ventricular ejection fraction is estimated visually at 30-35%. Procedure Complete-[id number]. Image enhancement Optison was used for left [...] Note Angelito Murphy MD - 05/04/2024 1 [place] [id number] Echocardiogram Report Name: DEIDRA MEDINA JR Study Date: 508:55 AMBP: 120/69 mmHg : 1955 Height: 183 cm Account: [id number] Age: 68 yrs Weight: 120 kg Gender: Male BSA: 2.4 m2 Ordering Physician: PUNEET LUCERO Referring Physician: NILE GAO Performed By: Rolly Cash RDCS Reason For Study: pacemaker generator end of life Exam Location: [facility]. Interpretation Summary - Very technically limited study. - Left ventricular ejection fraction is estimated visually at 30-35%. Procedure Complete-[id number]. Image enhancement Optison was used for left [...] 3.1 cm2 Dimensionless index Aov: 0.87 Puneet Lucero MD ECHO ORDERABLES * (ABNORMAL) CBC (with Diff) (05/04/2024 3:24 AM EST) Only the most recent of2 resultswithin the time period is included. White Blood Cell 7.98 4.00 - 9.50 x10(3)/mc L 05/04/2024 3:52 AM [facility] Red Blood Cell 4.52(L) 4.58 - 5.54 x10(6)/mc L 05/04/2024 3:52 AM [facility] Hemoglobin 15.0 13.7 - 16.5 g/dL 05/04/2024 3:52 AM [facility] Hematocrit 45.6 40.5 - 48.5 % 05/04/2024 3:52 AM [facility] Mean Cell Volume 100.9(H) 82.9 - 93.1 fL 05/04/2024 3:52 AM [facility] Mean Cell Hemoglobin 33.2(H) 27.5 - 32.1 pg 05/04/2024 3:52 AM [facility] Mean Cell Hemoglobin Concentration 32.9 32.0 - 35.7 g/dL 05/04/2024 3:52 AM [facility] Platelet 198 145 - 357 x10(3)/mc L 05/04/2024 3:52 AM [facility] Mean Platelet Volume 11.5 7.6 - 12.9 fL 05/04/2024 3:52 AM [facility] RDW Standard Deviation 47.5(H) 36.0 - 45.0 fL 05/04/2024 3:52 AM [facility] RDW coefficient of variation 12.6 11.4 - 13.8 % 05/04/2024 3:52 AM [facility] NRBC% auto 0.0 % 05/04/2024 3:52 AM [facility] NRBC Absolute <0.01 <0.01 x10(3)/mc L 05/04/2024 3:52 AM [facility] Neutrophil % 62.9 % 05/04/2024 3:52 AM [facility] Neutrophil Absolute (ANC) - Automated 5.03 1.70 - 6.10 x10(3)/mc L 05/04/2024 3:52 AM [facility] Lymph % 24.6 % 05/04/2024 3:52 AM [facility] Lymph Absolute 1.96 0.90 - 3.20 x10(3)/mc L 05/04/2024 3:52 AM [facility] Monocyte % 9.1 % 05/04/2024 3:52 AM [facility] Monocyte Absolute 0.73 0.30 - 0.90 x10(3)/mc L 05/04/2024 3:52 AM [facility] Eos % 1.8 % 05/04/2024 3:52 AM [facility] Eos Absolute 0.14 0.00 - 0.40 x10(3)/mc L 05/04/2024 3:52 AM [facility] Basophil % 1.3 % 05/04/2024 3:52 AM [facility] Baso Absolute 0.10 0.00 - 0.10 x10(3)/mc L 05/04/2024 3:52 AM [facility] Immature Gran % 0.3 % 3:52 AM [facility] Immature Gran Absolute <0.04 0.00 - 0.04 x10(3)/mc L 05/04/2024 3:52 AM [facility] Blood VENOUS BLOOD SPECIMEN / Unknown Venipuncture / Unknown 05/04/2024 3:24 AM EST 05/04/2024 3:44 AM EST Abdirahman Serrano MD HEMATOLOGY ORDERABL ES [facility] [place] [address] * (ABNORMAL) Troponin - Single (05/03/2024 9:51 PM EST) Pathologist [facility] [place] Troponin-T, High Sensitivity 27(H) <=22 ng/L 05/03/2024 [...] troponin value can be found in the [facility] Test Catalog Troponin - [email or web address] Reference: Fourth [place] Definition of Myocardial Infarction. Journal of the [place] College [employer] 2018;72:8666-7102 Blood VENOUS BLOOD SPECIMEN / Unknown Venipuncture / Unknown 05/03/2024 9:51 PM EST 05/03/2024 9:56 PM EST Abdirahman Serrano MD CHEMISTRY ORDERABLE S [facility] [place] [address] * (ABNORMAL) TSH [place] (05/03/2024 9:51 PM EST) Pathologist [facility] [place] Thyroid Stimulating Hormone 8.98(H) 0.27 - 4.20 mcIU/mL 05/03/2024 10:32 PM EST [facility] Blood VENOUS BLOOD SPECIMEN / Unknown Venipuncture / Unknown 05/03/2024 9:51 PM EST 05/03/2024 9:56 PM EST Abdirahman Serrano MD CHEMISTRY ORDERABLE S Performing Organization Address [facility] de Phone Number [facility] [place] [address] * APTT (05/03/2024 9:51 PM EST) Partial [...] MD HEMATOLOGY ORDERABL ES Performing Organization Address [facility] de Phone Number [facility] [place] [address] * (ABNORMAL) Prothrombin Time (05/03/2024 9:51 PM EST) Prothrombin Time 12.7(H) 9.4 - 12.5 sec [...] MD HEMATOLOGY ORDERABL ES Performing Organization Address [facility] [place] Phone Number [facility] [place] [address] * T4, free (05/03/2024 9:51 PM EST) [facility] Free T4 1.05 0.93 - 1.70 ng/dL 05/03/2024 11:01 PM EST [facility] Blood VENOUS BLOOD SPECIMEN / Unknown Venipuncture / Unknown 05/03/2024 9:51 PM EST 05/03/2024 9:56 PM EST Abdirahman Serrano MD CHEMISTRY ORDERABLE S Performing Organization Address City/[facility]/ZIP Co de Phone Number [facility] [place] [address] * Magnesium (05/03/2024 9:51 PM EST) [facility] Magnesium 0.85 0.69 - 1.07 mMol/L 05/03/2024 10:32 PM EST [facility] Blood VENOUS BLOOD SPECIMEN / Unknown Venipuncture / Unknown 05/03/2024 9:51 PM EST 05/03/2024 9:56 PM EST Abdirahman Serrano MD CHEMISTRY ORDERABLE S [facility] [place] [address] * Basic Metabolic Panel (05/03/2024 9:51 PM EST) [facility] Glucose 119 65 - 199 mg/dL 05/03/2024 10:32 PM [facility] Comment:Glucose Concentratio n >=200 mg/dL plus symptoms is consistent with Diabetes Mellitus. Blood Urea Nitrogen 17 10 - 20 mg/dL 05/03/2024 10:32 PM [facility] Creatinine 1.09 0.80 - 1.50 mg/dL 05/03/2024 10:32 PM EST [facility] Sodium 138 135 - 145 mMol/L 05/03/2024 10:32 PM [facility] Potassium 3.9 3.5 - 5.0 mMol/L 05/03/2024 10:32 PM EST [facility] Chloride 104 98 - 107 mMol/L 05/03/2024 10:32 PM EST [facility] Carbon Dioxide 24 22 - 31 mMol/L 05/03/2024 10:32 PM EST [facility] Anion Gap 10 5 - 15 mMol/L 05/03/2024 10:32 PM EST [facility] Calcium 9.1 8.5 - 10.5 mg/dL 05/03/2024 10:32 PM EST [facility] Est Glomerular Filtration Rate - Male 73 mL/min/1. 73 m?? 05/03/2024 10:32 PM [facility] Comment: This patient's estimated GFR [...] MD CHEMISTRY ORDERABLE S [facility] [place] [address] * External Cardiology Result (05/03/2024 2:09 AM EST) Anatomical Region Laterality Modality Other Historical Provider EXTERNAL CARDIOLO GY RESULT * External Cardiology Result (05/03/2024 2:08 AM EST) Anatomical Region Laterality Modality Other Historical Provider EXTERNAL CARDIOLO GY RESULT from Last 3 Months Advance Directives * Attempt Cardiopulmonary Resuscitation - Inpatient (Latest Code Status on File) Date Activated Date Inactivated Comments 05/03/2024 9:16 PM 05/05/2024 5:09 PM Question Answer Comments Code Status decision made by: Patient Care Teams Special Needs Caregiver Relationship Specialty Start Date End Date None None PCP - General 04/08/24
--- OUTSIDE RECORDS SUMMARY | 2024-05-10 10:58 | XMS_ITS | Referral Summary ---
Author Organization [facility] Address [address] [place] [address] Care Team Providers Care Home Health Rn Name Role Phone Unavailable Primary Care Provider Unavailabl e Social History Tobacco Use Types Packs/Day Years Used Date Smoking Tobacco: Never Assessed Sex and Gender Information Value Date Recorded Sex Assigned at Not on file Legal Sex Male 17:47 EST Gender Identity Not on file Sexual Orientation Not on file Plan of Treatment Not on file
--- NOTE | 2024-05-10 12:30 | DI.RAD_ITS ---
Exam(s) XR TIB/FIB LT EXAM: XR TIB/FIB LT CLINICAL HISTORY: and and redness over anterior left tibia. TECHNIQUE: 2D digital imaging was performed. COMPARISON: No exams were available for comparison FINDINGS: Two views. No evidence of fracture. Bone density normal. No osseous lesions. Thin growth arrest line incident ally noted in the tibial diaphysis below the midline. No gas in the soft tissues. No radiopaque foreign body. No evidence of osteomyelitis. IMPRESSION: No acute osseous findings in the tibia and fibula. DATA REPOSITORY: RADIATION DOSE DELIVERED:
--- NOTE | 2024-05-10 12:43 | ED.GENADUL_ITS ---
Discharge Plan Disposition Patient Disposition: Home Condition: Stable Discharge Details Clinical Impression: Cellulitis Primary Care Provider: Frankie Sheehan ED Provider: Tucker Leong Home Meds and New Rx's Prescriptions: New amoxicillin-pot clavulanate 875-125 mg tablet 1 tab PO BID Qty: 14 0RF Continued acetaminophen 325 mg Tablet 650 mg PO QID Qty: 0 0RF ibuprofen 600 mg tablet 600 mg PO Q6H PRNQty: 60 0RF Rx Instructions: take with food Discharge Instructions Additional Instructions: If you are not improving within a week follow-up with your primary care provider or express care. If you feel more ill or have new symptoms such as high fevers return to the emergency department for reevaluation. HPI General Mode of arrival: ambulatory . Date/Time Provider Initiated Documentation: 05/10/24 11:07 . Limitations to Documentation: no limitations . Information obtained by: patient . History of Present Illness 68 year old M presents to the emergency department with the chief complaint of left leg redness, described as mild, Quality is described as aching, and it has been constant. No relieving factors improve symptom(s), No exacerbating factors reported . Patient notes denies fever/chills. Patient did receive the following treatments prior to arrival, none Related Data Home Medications ?Medication ?Instructions ?Recorded ?Confirmed acetaminophen 325 mg tablet 650 mg (2 x 325 mg) PO QID #0 tabs 10/13/22 05/10/24 ibuprofen 600 mg tablet 600 mg PO Q6H PRN #60 tabs 10/13/22 05/10/24 amoxicillin 875 mg-potassium 1 tab PO BID #14 tabs 05/10/24 clavulanate 125 mg tablet Previous Rx's ?Medication ?Instructions ?Recorded acetaminophen 325 mg tablet 650 mg (2 x 325 mg) PO QID #0 tabs 10/13/22 ibuprofen 600 mg tablet 600 mg PO Q6H PRN #60 tabs 10/13/22 amoxicillin 875 mg-potassium 1 tab PO BID #14 tabs 05/10/24 clavulanate 125 mg tablet Allergies Allergy/AdvReac Type Severity Reaction Status Date / Time No Known Allergies Allergy Unverified 05/10/24 10:59 General Stated Complaint: Cellulitis MARCELLE: 3 Review of Systems All systems reviewed & are unremarkable except as noted in HPI and below Constitutional Constitutional: Denies chills, Denies fever(s) and Denies weakness Cardiovascular Cardiovascular: Denies chest pain and Denies dyspnea Respiratory Respiratory: Denies cough and Denies dyspnea Gastrointestinal Gastrointestinal: Denies abdominal pain, Denies nausea and Denies vomiting Musculoskeletal Musculoskeletal: Denies joint swelling Integumentary/Breasts Skin/Breast: Reports rash Neurologic Neurologic: Denies weakness Psychiatric Psychiatric: Denies depression Exam Const General: no acute distress Orientation: alert HENMT Head: normal to inspection Ears: external ears normal General nose exam: external nose normal Mouth: moist mucous membranes Eyes General: appearance normal, both eyes and all related structures Neck Neck: normal visual inspection Resp Effort & Inspection: normal respiratory effort and able to speak in complete sentences Cardio Rate: regular rate Skin General skin exam: erythema Neuro General: patient alert and patient oriented x3 Extrem General: full ROM and capillary refill normal Psych Mental Status: mental status grossly normal Course Vital Signs Vital signs: Vital Signs Temperature 36.8 C 05/10/24 10:50 Pulse 61 05/10/24 10:50 Respiratory Rate 16 05/10/24 10:50 Blood Pressure 122/71 05/10/24 10:50 Pulse Oximetry 94 05/10/24 10:50 Temperature 36.8 C 05/10/24 10:50 Pulse 61 05/10/24 10:50 Respiratory Rate 16 05/10/24 10:50 Blood Pressure 122/71 05/10/24 10:50 Pulse Oximetry 94 05/10/24 10:50 Pain Level 6 05/10/24 10:50 Medical Decision Making 68-year-old male who recently had a pacemaker placed about a week ago comes in with mild redness of his anterior left proximal tibia. He denies any known trauma, no fevers or chills. His pacemaker site on the right anterior chest is without any signs of infection and no tenderness, the wound seems to be Healing well.He has a area of 2 x 3 mild erythema on the left anterior proximal tibia. There does appear to be in a small abrasion but he does not know of any known trauma to the area. There is mild tenderness. No crepitus. I suspect an abrasion now has a cellulitis. I will obtain x-rays given his tenderness to evaluate for possible fracture, given he has no fevers or systemic symptoms I doubt entities such as sepsis and there is no tunneling wound so I doubt osteomyelitis. Differential Diagnosis Differential Diagnosis: cellulitis, abrasion Medical Records Medical records reviewed: Yes I reviewed the patient's medical records. Quality:SDOH Health Related Social Needs: No Data to Display PFSH All Active Problems (Updated 05/10/24 @ 14:40 by Tucker Leong MD) Cellulitis (Acute) Pacemaker at end of battery life (Acute) Chest pain (Acute) Elevated TSH (Chronic) Hypomagnesemia (Acute) Acute exacerbation of chronic low back pain (Acute) Chronic low back pain (Chronic) Sick sinus syndrome (Chronic 06/13/13) Status post placement of cardiac pacemaker (Chronic 06/14/13) Severe back pain (Acute) Radiculopathy due to lumbar intervertebral disc disorder (Acute) Social History Smoking/Tobacco Use Status: Former Tobacco Use Smoking risk assessment performed?: Yes Alcohol Intake: former Drug use: Never Substance use type: does not use Housing: house Do you feel safe at home: Yes Do you feel safe in your relationship?: Yes
[2024-05-10] MEDS: Amoxicillin 875/Clav. 125 TAB PO (13:44)
[2024-05-10 15:02] VITALS: BP 122/71; PULSE 61; RESP 16; TEMP 36.8; O2SAT 94
[2024-05-10 15:04] VITALS: BP 130/74; PULSE 71; RESP 16; TEMP 37.2; O2SAT 96
== END 2024-05-10 15:06 | disposition home or self-care (01) ==
PROVIDERS: Emergency Provider Emergency Medicine; PCP Internal Medicine
DX: L03.116 Cellulitis of left lower limb (principal)
CPT/HCPCS: 93005; 99284; 73590; 93010; 99283

== ENCOUNTER 2024-05-23 16:58 | Inpatient (IN) | payer MEDICARE, SELFPAY ==
[2024-05-23] VITALS (63 sets, daily range): BP systolic 136–174; BP diastolic 65–110; PULSE 36–95; RESP 12–30; TEMP 36.2; O2SAT 88–97
--- NOTE | 2024-05-23 17:00 | RT.EKG_ITS ---
APPROVED REPORT Exam: Resting ECG Reason for Exam: chest pressure Patient Location: E HR:74 bpm ECG Measurements Heart Rate 74 AXIS NH 205 P -39 QRSd 125 QRS -54 QT 417 T 86 QTc 465 Conclusion Sinus rhythm, rate 74 PVCs with ventricular bigeminy No STEMI T wave inversion aVL, unchanged from priors IVCD, likely due to paced complexes
--- NOTE | 2024-05-23 17:30 | DI.RAD_ITS ---
Exam(s) XR CHEST 2V PA LATERAL EXAM: XR CHEST 2V PA LATERAL CLINICAL HISTORY: CP, pacer problems TECHNIQUE: 2D digital imaging was performed of the chest. Two images were obtained. PA and lateral views were obtained. COMPARISON: CR,XR XR PORTABLE CHEST AP from 10/19/2022 CR,XR XR CHEST 2V PA LATERAL from 05/03/2024 FINDINGS: MEDIASTINUM: Normal. HEART: Normal. There is a pacing device in place. The atrial lead appears retracted somewhat compare d to the prior examination from 05/03/2024. This may be due to patient positioning. It still appears to lie in the right atrium. Ventricular lead appears stable. PULMONARY VASCULATURE: Normal. LUNGS: Clear. PLEURAL SPACE: No pleural effusion or pneumothorax. BONE:Within normal limits for the patient's age. OTHER FINDINGS:Normal. IMPRESSION: No acute pulmonary findings. DATA REPOSITORY: RADIATION DOSE DELIVERED:
[2024-05-23 17:42] LABS: Abs Immature Grans 0.01 10^3/uL (0.0-0.06); Absolute Eosinophil Count 0.12 10^3/uL (0.0-0.7); Absolute Lymphocyte Count 1.78 10^3/uL (1.2-3.4); Absolute Monocyte Count 0.39 10^3/uL (0.1-0.8); Absolute Neutrophil Count 4.53 10^3/uL (1.2-6.7); Basophils % 1.4 %; Eosinophils % 1.7 %; HCT 46.8 % (40.0-50.0); HGB 15.1 g/dL (13.5-17.5); Immature Grans % 0.1 %; Lymphocytes % 25.7 %; MCH 32.5 pg (27.0-33.0); MCHC 32.3 % (32.0-36.0); MCV 101 fL (80-95); MPV 11.1 fL (8.0-11.0); Monocytes % 5.6 %; Neutrophils % 65.5 %; Platelet Count 240 10^3/uL (130-400); RBC 4.65 10^6/uL (4.36-5.78); RDW 12.4 % (11.8-14.1); RDW-SD 46.1 fL; WBC 6.93 10^3/uL (4.4-10.8)
[2024-05-23] MEDS: Aspirin 81 MG CHEW 324 MG CH (17:47)
[2024-05-23 17:52] LABS: Prothrombin Time 10.3 sec (9.1-11.1)
[2024-05-23 18:05] LABS: ALT 33 U/L (16-63); AST 28 U/L (15-37); Albumin 3.5 g/dL (3.4-5.0); Alkaline Phosphatase 100 U/L (46-116); Anion Gap 6.6 mmol/L (3-11); BUN 12 mg/dL (7-18); Bilirubin, Total 0.36 mg/dL (0.2-1.0); CO2 31.4 mmol/L (21.0-32.0); CREATININE 1.2 mg/dL (0.70-1.30); Chloride 105 mmol/L (98-107); Estimated GFR 65.06 (mL/min/1.73m2); Glucose 104 mg/dL (74-106); Magnesium 1.8 mg/dL (1.8-2.4); NT-proBNP 3602 pg/mL (<300); Potassium 4.2 mmol/L (3.5-5.1); Sodium 143 mmol/L (136-145); Total Protein 7.3 g/dL (6.4-8.2); Troponin I 28 ng/L (<or=76)
--- NOTE | 2024-05-23 18:14 | ED.GENADUL_ITS ---
Discharge Plan Discharge Details Chief Complaint: Dizzy/Sync Clinical Impression: Bigeminal rhythm, Near syncope, Chest pressure, Heart failure Primary Care Provider: Frankie Sheehan ED Provider: Rachel Cuellar Home Meds and New Rx's Prescriptions: No Action losartan 25 mg tablet 12.5 mg PO DAILY acetaminophen 325 mg Tablet 650 mg PO QID Qty: 0 0RF ibuprofen 600 mg tablet 600 mg PO Q6H PRNQty: 60 0RF Rx Instructions: take with food HPI General Mode of arrival: ambulatory . Date/Time Provider Initiated Documentation: 05/23/24 17:28 . Limitations to Documentation: no limitations . Information obtained by: patient and old records reviewed . HPI Narrative: HPI: This is a 68-year-old male patient with a past medical history significant for hypertension, pacemaker placement for SA node dysfunction, and a recent replacement of his pacemaker generator on 05/04 of this year at [facility] presenting for evaluation of chest pressure, near syncope, brain fog and fatigue, and hand tingling. The patient reports that he has been recovering from his procedure well, has not had any postoperative issues, but last night had an episode of near syncope where he felt he was going to pass out. He states that before he got his pacemaker this used to happen twice per year, but has not happened since he had his pacemaker placed. States that he did not lose consciousness and was able to sit down and feels that when he is resting the symptoms are better. However, he feels like he has significant brain fog, increased fatigue, and has had persistent chest pressure that has not improved over the course of today, prompting him to seek care. The patient takes losartan daily but is not on any other medications. I was able to review his [facility] notes, patient had an echo that was concerning for heart failure, with decreased EF. The patient himself is not endorsing any peripheral edema, orthopnea, Exam: Gen: Awake and alert, in no apparent distress HEENT: Non-icteric sclera Neck: Supple Lungs: No apparent respiratory distress, normal respiratory effort. Lung sounds clear and equal bilaterally without wheezes, rhonchi, rales CV: Appears well perfused, heart with irregular rate and rhythm, telemetry with paced rhythm and multifocal PVCs, bigeminy and trigeminy with occasional c ouplets and triplets. Abdomen: Non-distended, soft, nontender MSK: Moves 4 extremities without apparent limitation in ROM. No peripheral edema Skin: Visualized skin without rashes, cyanosis. Neuro: Normal Gait, no obvious focal deficits or facial asymmetry. Speaks in full, clear sentences. Psych: Appropriate for situation. MDM: This is a 68-year-old male patient presenting for evaluation of near syncope and chest pressure. My differential includes but is not limited to ACS including STEMI, NSTEMI, unstable angina, certainly considered arrhythmia and pacemaker abnormality given his recent generator replacement and his high ectopic burden on telemetry. Considered pericarditis/myocarditis, aortic pathology, heart failure exacerbation. Considered pulmonary abnormalities including pneumonia, bronchitis, pleural effusion, pulmonary edema, reactive airway disease, pneumothorax. The patient is without tachycardia, hypoxia, or a pleuritic component to his pain to significantly increase my concern for pulmonary embolism. No GI symptoms or vomiting to suggest Boerhaave's, esophagitis, peptic ulcer disease, pancreatitis. Considered musculoskeletal pathologies including costochondritis, chest wall pain, as well as metabolic and electrolyte derangements, anemia, kidney injury. We obtained an EKG which read demonstrates paced rhythm with ectopic beats, and will obtain laboratory studies to include CBC, CMP, magnesium, troponin, BNP and will obtain a chest x-ray. I will provide the patient with a dose of 325 mg of aspirin. ED Course: I independently interpreted the laboratory studies, which show no significant leukocytosis, anemia, or thrombocytopenia. The chemistry panel is without evidence of electrolyte abnormality, kidney dysfunction, or liver injury. Troponin is negative and without delta change on 1 hour recheck, BNP elevated to 3600, though decreased from level obtained 20 days ago which was 4500. Chest x-ray without evidence of pulmonary edema or other abnormality to account for the patient's symptoms. I did reach out to electrophysiology and interrogated the patient's pacemaker. They do not feel that the patient's ectopic burden is sufficient to entirely explain his symptoms, and do not see any abnormalities with pacemaker lead placement. They state that any pacemaker adjustments could be made in the outpatient environment and did not feel that electrophysiology was the appropriate service for this patient's disposition. However, he has ongoing chest pressure, and had a near syncopal episode which is quite concerning to me, for this reason I reached out to general cardiology to discuss this patient's case. 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 They recommended initiation of Lasix, 40 mg IV was given in this emergency department, and admission for emergent echo within the next 24 hours, increasing his losartan for afterload management, and trending of troponins. Unfortunately, our hospital is at capacity and we do not have echo capabilities within 24 hours. [facility] is also at capacity and not accepting until greater than 24 hours time. I did share this with the patient and performed a bedside echo as noted below, which was complicated by difficult windows but does show a significantly reduced ejection fraction, no obvious pericardial effusion, respiratory variation preserved and no B-lines on lung views. When I shared the plan with the patient, and mentioned the need to potentially transfer to another facility for echo and admission, the patient states that he would not be going to another hospital and would rather leave the facility. We did have an extended shared decision-making conversation as this would represent an AGAINST MEDICAL ADVICE decision given the patient's concerning ongoing symptoms and significant cardiac history. After this discussion the patient was amenable to me reaching out to alternative facilities including [facility], [facility], etc., to discuss transfer for admission for heart failure and echocardiography. I signed out care of the patient to the oncoming provider prior to final disposition. Patient remained hemodynamically appropriate, was putting out appropriate urine in response to Lasix. All further care per the oncoming provider. Rachel Cuellar MD Related Data Home Medications ?Medication ?Instructions ?Recorded ?Confirmed acetaminophen 325 mg tablet 650 mg (2 x 325 mg) PO QID #0 tabs 10/13/22 05/23/24 ibuprofen 600 mg tablet 600 mg PO Q6H PRN #60 tabs 10/13/22 05/23/24 losartan 25 mg tablet 12.5 mg PO DAILY 05/23/24 05/23/24 Previous Rx's ?Medication ?Instructions ?Recorded acetaminophen 325 mg tablet 650 mg (2 x 325 mg) PO QID #0 tabs 10/13/22 ibuprofen 600 mg tablet 600 mg PO Q6H PRN #60 tabs 10/13/22 Allergies Allergy/AdvReac Type Severity Reaction Status Date / Time No Known Allergies Allergy Unverified 05/10/24 10:59 General Stated Complaint: Dizzy/Sync MARCELLE: 3 Course Vital Signs Vital signs: Vital Signs Temperature 36.2 C L 05/23/24 17:04 Pulse 46 L 05/23/24 17:04 Respiratory Rate 20 05/23/24 17:04 Blood Pressure 163/65 H 05/23/24 17:04 Pulse Oximetry 96 05/23/24 17:04 Temperature 36.2 C L 05/23/24 17:04 Temperature Source Oral 05/23/24 17:04 Pulse 53 L 05/23/24 18:01 Pulse 79 05/23/24 18:01 Respiratory Rate 19 05/23/24 18:01 Respiratory Effort Normal, Non-Labored 05/23/24 17:31 Respiratory Depth Normal 05/23/24 17:31 Respiratory Pattern Normal 05/23/24 17:31 Blood Pressure 161/71 H 05/23/24 18:01 Blood Pressure Mean 104 05/23/24 18:01 Blood Pressure Position Sitting 05/23/24 17:04 Pulse Oximetry 92 05/23/24 18:01 Oxygen Delivery Method Room Air 05/23/24 17:04 Oxygen Flow Rate 0 05/23/24 17:04 Lab/Test Results Lab/Test Results: Laboratory Tests Range/Units 05/23/24 17:35 WBC (4.4-10.8) 10^3/uL 6.93 RBC (4.36-5.78) 10^6/uL 4.65 Hgb (13.5-17.5) g/dL 15.1 Hct (40.0-50.0) % 46.8 MCV (80-95) fL 101 H MCH (27.0-33.0) pg 32.5 MCHC (32.0-36.0) % 32.3 RDW (11.8-14.1) % 12.4 Plt Count (130-400) 10^3/uL 240 MPV (8.0-11.0) fL 11.1 H Immature Gran % % 0.1 Neutrophils % % 65.5 Lymphocytes % % 25.7 Monocytes % % 5.6 Eosinophils % % 1.7 Basophils % % 1.4 Nucleated RBC % (0.0-0.3) % 0.0 Absolute Neutrophils (1.2-6.7) 10^3/uL 4.53 Absolute Lymphocytes (1.2-3.4) 10^3/uL 1.78 Absolute Monocytes (0.1-0.8) 10^3/uL 0.39 Absolute Eosinophils (0.0-0.7) 10^3/uL 0.12 Absolute Basophils (0.0-0.2) 10^3/uL 0.10 PT (9.1-11.1) sec 10.3 INR (0.9-1.1) 1.0 Sodium (136-145) mmol/L 143 Potassium (3.5-5.1) mmol/L 4.2 Chloride (98-107) mmol/L 105 Carbon Dioxide (21.0-32.0) mmol/L 31.4 Anion Gap (3-11) mmol/L 6.6 BUN (7-18) mg/dL 12 Creatinine (0.70-1.30) mg/dL 1.2 Est GFR (CKD-EPI 2020) (mL/min/1.73m2) 65.06 Glucose (74-106) mg/dL 104 Calcium (8.5-10.1) mg/dL 9.0 Magnesium (1.8-2.4) mg/dL 1.8 Total Bilirubin (0.2-1.0) mg/dL 0.36 AST (15-37) U/L 28 ALT (16-63) U/L 33 Alkaline Phosphatase (46-116) U/L 100 Troponin I (<or=76) ng/L 28 NT-Pro-B Natriuret Pep (<300) pg/mL 3602 H Total Protein (6.4-8.2) g/dL 7.3 Albumin (3.4-5.0) g/dL 3.5 Medical Decision Making Quality:SDOH Health Related Social Needs: No Data to Display PFSH All Active Problems (Updated 05/24/24 @ 00:27 by Rachel Cuellar MD) Heart failure (Acute) Chest pressure (Acute) Near syncope (Acute) Bigeminal rhythm (Acute) Cellulitis (Acute) Pacemaker at end of battery life (Acute) Chest pain (Acute) Elevated TSH (Chronic) Hypomagnesemia (Acute) Acute exacerbation of chronic low back pain (Acute) Chronic low back pain (Chronic) Sick sinus syndrome (Chronic 06/13/13) Status post placement of cardiac pacemaker (Chronic 06/14/13) Severe back pain (Acute) Radiculopathy due to lumbar intervertebral disc disorder (Acute) Social History Smoking/Tobacco Use Status: Former Tobacco Use Smoking risk assessment performed?: Yes Alcohol Intake: former Drug use: Never Substance use type: does not use Housing: house Do you feel safe at home: Yes Do you feel safe in your relationship?: Yes
[2024-05-23 19:26] LABS: Troponin I 31 ng/L (<or=76)
[2024-05-23 20:54] LABS: Troponin I 38 ng/L (<or=76)
[2024-05-23] MEDS: Furosemide 40 MG/4 ML VIAL IVP (22:29)
[2024-05-24] VITALS (132 sets, daily range): BP systolic 100–179; BP diastolic 60–119; PULSE 39–96; RESP 11–44; TEMP 36.7–36.9; O2SAT 86–98
--- NOTE | 2024-05-24 00:36 | ED.PROG_ITS ---
Date of service: 05/24/24 Time of Service: 00:37 Medical Decision Making This patient was signed out to me. Please see previous notes for H&P and initial eval. In brief, 68yo M with pacemaker in place, battery replaced about two weeks ago, presenting with near syncope and chest pressure. EKG shows frequent ectopy, bigeminy, trigeminy. Troponins negative, BNP elevated however improved from two weeks ago. [place] [facility] EF. EP was consulted; nothing to do on their end. General cardiology also consulted and recommended admission for medical optimization for heart failure (patient not on any goal directed therapy at this time) as well as echo with 24h, no indication for urgent/emergent ischemic eval. Regrettably no echo available at [facility] in the morning. Pt initially considered leaving AMA but after extensive conversation with Dr. Cuellar is at this time is agreeable to transfer to some limited locations ([facility]); we are attempting to identify an accepting facility. If he does leave AMA, per cardiology reccs would double dose of his home losartan from 12.5 to 25mg, and add PO lasix 40mg. -No response from [place] -[facility] declined (including [facility] Discussed with patient who states he would also be willing to go to [place] (and nowhere else). -[facility] does not have echo today. Discussed again with patient who is not willing to accept transfer to any other facilities (I offered to contact [facility], [facility], [facility], and [facility], or any others) and states he wants to leave against medical advice. I reinforced with Mr. Armstrong the risks of leaving that he had previously discussed with Dr. Cuellar, including the fact that he is at high risk for complications or worsening of his condition due to his cardiac history and that it is very possible he could or suffer permanent disability. He verbalized understanding of these concerns, states If I , I - everyone has to go sometime and No way am I going anywhere else, I'd rather go home and see what happens. He has decision making capacity and I have no indication to hold him against his will. I encouraged him to return at any time if he changes his mind. I reviewed cardiology's medication recommendations including increased losartan and adding lasix; these prescriptions were sent to his pharmacy. Repeat vital signs stable prior to leaving. 0135 Called to bedside; just prior to leaving patient reconsidered and now states he is willing to transfer elsewhere. Will continue to attempt to identify accepting facility. -[facility] declined -[facility] declined -[facility] declined -Unable to send pt information to [facility] -[facility] declined On reassessment patient denies any chest pain or pressure at this time, has resolved over his stay in the ED. Given inability to find accepting facility (and patient hesitance to transfer) I consulted again with [facility] [place], spoke with Dr. Burton; agree echocardiogram on Thursday is sufficient. Advised goal net negativ 2L. Discussed with [facility] hospitalist Dr. Lewis; pt accepted to medicine service for further workup and management. Awaiting admission orders. Quality:[facility] Health Related Social Needs: No Data to Display Discharge Plan Disposition Patient Disposition: Admit to [facility] Condition: Serious Discharge Details Clinical Impression: Bigeminal rhythm, Near syncope, Chest pressure, Heart failure Primary Care Provider: Frankie Sheehan ED Provider: Jammie Ross Home Meds and New Rx's Prescriptions: New losartan 25 mg tablet 25 mg PO DAILY Qty: 30 0RF furosemide [Lasix] 40 mg tablet 40 mg PO DAILY Qty: 30 0RF Discontinued losartan 25 mg tablet 12.5 mg PO DAILY acetaminophen 325 mg Tablet 650 mg PO QID Qty: 0 0RF ibuprofen 600 mg tablet 600 mg PO Q6H PRNQty: 60 0RF Rx Instructions: take with food Discharge Instructions Instructions: Chest Pain, Adult ED, Heart Failure ED Additional Instructions: I would like you to remain in the emergency department while we find a hospital that can accept you as a patient and perform and echocardiogram today. You have chosen to leave against medical advice. The risks of this including and permanent disability- please return to the emergency department if you change your mind. We would be happy to see you again. Please increase the dose of your losartan from 12.5mg to 25mg once a day. Also start taking lasix 40mg once a day. 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 Return to the emergency department for new or worsening symptoms including new/different/worse chest pain, feeling like you are going to pass out, passing out, difficulty breathing, weakness, if you have any other concerns, or if you change your mind. Referrals: Frankie Sheehan MD [Primary Care Provider] -
--- NOTE | 2024-05-24 06:11 | HPE_ITS ---
Date of service: 05/24/24 Time of Service: 06:12 Assessment and Plan Assessment and plan (1) Near syncope: Start date: 05/24/24 Status: Acute Assessment and plan: This is a 68-year-old gentleman with significant ectopy, bigeminal PVCs, pacemaker now working better having battery renewed. He did present with near syncope and this may be secondary to his dysrhythmias with bigeminal PVCs and worsening CHF. He will be admitted for observation and monitoring as we more aggressively diurese having need for echocardiogram as there is availability. He was attempted to be transferred for more immediate cardiology care but no beds were available. [facility] cardiology in consultation, was okay with patient being admitted to this institution, diuresed for his worsening of CHF having a reduced left ventricular ejection fraction recently with hospitalization at that facility. Long-term, he should follow-up with [facility] cardiology and EP. He is a full code. (2) Atypical chest pain: Start date: 05/24/24 Status: Acute Assessment and plan: IV Lasix twice daily for CHF and continue to trend troponins. Patient will have echocardiogram as soon as available. Patient will be initiated on metoprolol and atorvastatin as well as a baby aspirin. Heparinization is not indicated. He will need cardiology follow-up with risk stratification for CAD. (3) Bigeminal rhythm: Start date: 05/24/24 Status: Acute Assessment and plan: Add metoprolol the patient already having losartan for hypertension. Monitor blood pressure adjust as needed. Long-term need follow-up with the EP at [facility]. (4) HTN (hypertension): Status: Chronic Assessment and plan: Not controlled presently on losartan with patient to be diuresed with IV Lasix and metoprolol will be added for blood pressure control and also because he has frequent bigeminy with PVCs. (5) CHF (congestive heart failure): Status: Chronic Assessment and plan: Reduced left ventricular ejection fraction by recent hospitalization at [facility]. BNP is elevated but better than previous measurement 2 weeks ago when he had initial evaluation at this facility for failure of pacemaker. Diuresed with Lasix IV 40 mg twice daily and will follow-up echocardiogram when available. (6) Status post placement of cardiac pacemaker: Status: Chronic Assessment and plan: Functional with battery replacement. Follow-up [facility] pacemaker clinic as scheduled. (7) Hypomagnesemia: Status: Chronic Assessment and plan: Low range of normal presently with trending daily. History of Present Illness History of Present Illness Chief Complaint: Dizziness and chest pressure with near syncope while driving Narrative: This is a 68-year-old gentleman who was recently hospitalized 2 weeks prior with failure of pacemaker secondary to battery expiring. He was transferred to [facility] and had the battery replaced at that time had an echocardiogram which showed a reduced left ventricular ejection fraction but patient was not placed on Lasix. He was on losartan for high blood pressure. He presents today with sudden onset of chest pressure which was retrosternal and nonradiating with no associated symptoms other than feeling dizzy lightheaded. When he presented with his pacemaker malfunction he felt the extra beats or skipped beats but had no near- syncope or chest pressure. In the ED his troponins were negative his BNP was elevated though lower than last measured 2 weeks prior. Plans were to have him transferred for further evaluation of his dysrhythmia with the patient manifesting frequent PVCs and bigeminy at times. His pacemaker seemed to be working well. He was not having chest pain at the time I saw him. He denied any peripheral edema. He is overweight but this is chronic. He also minimizes medical follow-up. He did see cardiology and EP were called and they recommended observation with trending troponins, IV Lasix for CHF exacerbation and follow-up echocardiogram as soon as available hopefully within 24 to 48 hours. They will follow him up long-term if patient wishes. He is a DNR. Review of Systems Narrative: 13 point review of systems otherwise unrevealing or stable. PFSH All Active Problems (Updated 05/24/24 @ 06:18 by Bryan Lewis) HTN (hypertension) (Chronic) Atypical chest pain (Acute) CHF (congestive heart failure) (Chronic) Heart failure (Acute) Chest pressure (Acute) Near syncope (Acute) Bigeminal rhythm (Acute) Cellulitis (Acute) Pacemaker at end of battery life (Acute) Chest pain (Acute) Elevated TSH (Chronic) Hypomagnesemia (Chronic) Acute exacerbation of chronic low back pain (Acute) Chronic low back pain (Chronic) Sick sinus syndrome (Chronic 06/13/13) Status post placement of cardiac pacemaker (Chronic 06/14/13) Severe back pain (Acute) Radiculopathy due to lumbar intervertebral disc disorder (Acute) Social History Smoking/Tobacco Use Status: Former Tobacco Use Smoking risk assessment performed?: Yes Alcohol Intake: former Drug use: Never Substance use type: does not use Housing: house Do you feel safe at home: Yes Do you feel safe in your relationship?: Yes Meds Allergies and Home Medications Allergies Allergy/AdvReac Type Severity Reaction Status Date / Time No Known Allergies Allergy Unverified 05/10/24 10:59 Home Medications ?Medication ?Instructions ?Recorded ?Confirmed ?Type furosemide 40 mg tablet (Lasix) 40 mg PO DAILY #30 tabs 05/24/24 Rx losartan 25 mg tablet 25 mg PO DAILY #30 tabs 05/24/24 Rx Exam Narrative Exam Narrative: General: Patient appears appropriate for age and is found to With morbid obesity. He is alert and oriented x 3 and in no acute distress. HEENT: Normocephalic, long, thin smalls hair and garcia with course and facial features. Eyes with pupils equal and reactive to light symmetrically, extraocular movement intact and sclera anicteric. Oropharynx with moist mucosa and poor dentition with many missing teeth and discolored teeth. Neck: Supple without JVD. Back: Kyphotic with good posture and decreased range of motion, loss of lordotic curve. No CVA tenderness. Lungs: Fair aeration clear to auscultation and percussion. No focalizing rales or rhonchi. Heart: Irregular rhythm with no appreciable murmur or gallop. Normal rate. Palpable subcutaneous pacemaker over right upper chest. Abdomen: Obese contour, soft nontender to palpation without palpable hepatosplenomegaly. Bowels are positive all quadrants. Genitalia: Exam deferred. Extremities: Trace pitting edema both lower extremities with no clubbing or cyanosis. Fair capillary refill. Skin: Normal color, warm and dry. Neuro: Cranial nerves II through XII gross intact, no focalized motor deficits. No tremor. Psych: Normal affect and mood. No abnormal thought processes. Remote and recent memory grossly intact. Results Imaging Imaging Studies: EXAM: XR CHEST 2V PA LATERAL CLINICAL HISTORY: CP, pacer problems TECHNIQUE: 2D digital imaging was performed of the chest. Two images were obtained. PA and lateral views were obtained. COMPARISON: CR,XR XR PORTABLE CHEST AP from 10/19/2022 CR,XR XR CHEST 2V PA LATERAL from 05/03/2024 FINDINGS: MEDIASTINUM: Normal. HEART: Normal. There is a pacing device in place. The atrial lead appears retracted somewhat compared to the prior examination from 05/03/2024. This may be due to patient positioning. It still appears to lie in the right atrium. Ventricular lead appears stable. PULMONARY VASCULATURE: Normal. LUNGS: Clear. PLEURAL SPACE: No pleural effusion or pneumothorax. BONE:Within normal limits for the patient's age. OTHER FINDINGS:Normal. IMPRESSION: No acute pulmonary findings. Labs 05/23/24 17:35 05/23/24 17:35 Labs: Laboratory Results - last 24 hr 05/23/24 05/23/24 05/23/24 17:35 18:55 20:23 WBC 6.93 RBC 4.65 Hgb 15.1 Hct 46.8 MCV 101 H MCH 32.5 MCHC 32.3 RDW 12.4 Plt Count 240 MPV 11.1 H Immature Gran % 0.1 Neutrophils % 65.5 Lymphocytes % 25.7 Monocytes % 5.6 Eosinophils % 1.7 Basophils % 1.4 Nucleated RBC % 0.0 Absolute Neutrophils 4.53 Absolute Lymphocytes 1.78 Absolute Monocytes 0.39 Absolute Eosinophils 0.12 Absolute Basophils 0.10 PT 10.3 INR 1.0 Sodium 143 Potassium 4.2 Chloride 105 Carbon Dioxide 31.4 Anion Gap 6.6 BUN 12 Creatinine 1.2 Est GFR (CKD-EPI 2020) 65.06 Glucose 104 Calcium 9.0 Magnesium 1.8 Total Bilirubin 0.36 AST 28 ALT 33 Alkaline Phosphatase 100 Troponin I 28 31 38 NT-Pro-B Natriuret Pep 3602 H Total Protein 7.3 Albumin 3.5 Last Vital Signs Temp 36.2 C L 05/23/24 17:04 Pulse 51 L 05/24/24 05:40 Resp 19 05/24/24 05:40 BP 167/95 H 05/24/24 05:31 Pulse Ox 96 05/24/24 05:40 Time Spent Time spent with Patient: >75 minutes Time was spent: preparing to see the patient(eg.review tests), obtaining and/or reviewing separately otained hiistory, ordering medications,tests, procedures, referring, communicating with other health vehicle care specialist, indepentently interpreting results, counseling the patient and care coordination
[2024-05-24] MEDS: Metoprolol 25 MG TAB PO ×2 (07:19→13:04)
[2024-05-24] MEDS: Aspirin 325 MG TAB PO (07:20)
[2024-05-24] MEDS: Enoxaparin 40 MG/0.4 ML SYR SC (07:20)
[2024-05-24] MEDS: Atorvastatin 40 MG TAB 80 MG PO ×2 (07:20→09:43)
[2024-05-24 08:05] LABS: Troponin I 28 ng/L (<or=76)
[2024-05-24] MEDS: Losartan 25 MG TAB PO (08:38)
--- NOTE | 2024-05-24 10:41 | W.PC.ACHO1 ---
Registration Status: Primary Language: Preferred Language: ED Information & Data Chief Complaint Dizzy/Sync 05/23/24 18:14 Triage Note Patient reported that her 05/23/24 17:04 hands are tingly and his chest feels funny and he is having brain fog, all these symptoms started last night. state he had his pacemaker changed 1 week ago Most Recent Vital Signs Temperature 36.2 C L 05/23/24 17:04 Temperature Source Oral 05/23/24 17:04 Pulse 51 L 05/24/24 09:40 Pulse 62 05/24/24 09:40 Respiratory Rate 16 05/24/24 09:40 Respiratory Effort Normal, Non-Labored 05/23/24 17:31 Respiratory Depth Normal 05/23/24 17:31 Respiratory Pattern Normal 05/23/24 17:31 Blood Pressure 114/76 05/24/24 09:31 Blood Pressure Mean 87 05/24/24 09:31 Blood Pressure Position Sitting 05/23/24 17:04 Pulse Oximetry 97 05/24/24 09:40 Oxygen Delivery Method Room Air 05/23/24 17:04 Oxygen Flow Rate 0 05/23/24 17:04 Allergies No Known Allergies Allergy (Unverified 05/10/24 10:59) Precautions Isolation Standard precaution 05/23/24 17:30 Active Medications Generic Name Dose Route Start Last Admin Trade Name Dung PRN Reason Stop Dose Admin Atorvastatin Calcium 80 mg 05/24/24 08:30 05/24/24 09:43 Atorvastatin 40 Mg Tab PO 80 mg DAILY CALROS Administration Enoxaparin Sodium 40 mg 05/24/24 07:00 05/24/24 07:20 Enoxaparin 40 Mg/0.4 Ml Syr SC 40 mg Q24H CARLOS Administration Losartan Potassium 25 mg 05/24/24 08:30 05/24/24 08:38 Losartan 25 Mg Tab PO 25 mg DAILY CARLOS Administration Metoprolol Tartrate 25 mg 05/24/24 07:00 05/24/24 07:19 Metoprolol 25 Mg Tab PO 25 mg Q6H CARLOS Administration IV IV Catheter Type [Right Saline Lock Antecubital] IV Catheter Gauge [Right 18 Antecubital] Diet Orders Category Date Time Status Heart Healthy Eating [DIET] Nutrition 05/24/24 Breakfast Active Diagnostics 05/24/24 05/24/24 05/23/24 Range/Units 10:36 07:41 20:23 WBC (4.4-10.8) 10^3/uL RBC (4.36-5.78) 10^6/uL Hgb (13.5-17.5) g/dL Hct (40.0-50.0) % MCV (80-95) fL MCH (27.0-33.0) pg MCHC (32.0-36.0) % RDW (11.8-14.1) % Plt Count (130-400) 10^3/uL MPV (8.0-11.0) fL Immature Gran % % Neutrophils % % Lymphocytes % % Monocytes % % Eosinophils % % Basophils % % Nucleated RBC % (0.0-0.3) % Absolute Neutrophils (1.2-6.7) 10^3/uL Absolute Lymphocytes (1.2-3.4) 10^3/uL Absolute Monocytes (0.1-0.8) 10^3/uL Absolute Eosinophils (0.0-0.7) 10^3/uL Absolute Basophils (0.0-0.2) 10^3/uL PT (9.1-11.1) sec INR (0.9-1.1) Sodium (136-145) mmol/L Potassium (3.5-5.1) mmol/L Chloride (98-107) mmol/L Carbon Dioxide (21.0-32.0) mmol/L Anion Gap (3-11) mmol/L BUN (7-18) mg/dL Creatinine (0.70-1.30) mg/dL Est GFR (CKD-EPI 2020) (mL/min/1.73m2) Glucose (74-106) mg/dL Calcium (8.5-10.1) mg/dL Magnesium (1.8-2.4) mg/dL Total Bilirubin (0.2-1.0) mg/dL AST (15-37) U/L ALT (16-63) U/L Alkaline Phosphatase (46-116) U/L Troponin I 28 38 (<or=76) ng/L NT-Pro-B Natriuret Pep (<300) pg/mL Total Protein (6.4-8.2) g/dL Albumin (3.4-5.0) g/dL COVID-19 Source Pending SARS-CoV-2 (PCR) Pending Influenza Type A (PCR) Pending Influenza Type B (PCR) Pending RSV (PCR) Pending 05/23/24 05/23/24 Range/Units 18:55 17:35 WBC 6.93 (4.4-10.8) 10^3/uL RBC 4.65 (4.36-5.78) 10^6/uL Hgb 15.1 (13.5-17.5) g/dL Hct 46.8 (40.0-50.0) % MCV 101 H (80-95) fL MCH 32.5 (27.0-33.0) pg MCHC 32.3 (32.0-36.0) % RDW 12.4 (11.8-14.1) % Plt Count 240 (130-400) 10^3/uL MPV 11.1 H (8.0-11.0) fL Immature Gran % 0.1 % Neutrophils % 65.5 % Lymphocytes % 25.7 % Monocytes % 5.6 % Eosinophils % 1.7 % Basophils % 1.4 % Nucleated RBC % 0.0 (0.0-0.3) % Absolute Neutrophils 4.53 (1.2-6.7) 10^3/uL Absolute Lymphocytes 1.78 (1.2-3.4) 10^3/uL Absolute Monocytes 0.39 (0.1-0.8) 10^3/uL Absolute Eosinophils 0.12 (0.0-0.7) 10^3/uL Absolute Basophils 0.10 (0.0-0.2) 10^3/uL PT 10.3 (9.1-11.1) sec INR 1.0 (0.9-1.1) Sodium 143 (136-145) mmol/L Potassium 4.2 (3.5-5.1) mmol/L Chloride 105 (98-107) mmol/L Carbon Dioxide 31.4 (21.0-32.0) mmol/L Anion Gap 6.6 (3-11) mmol/L BUN 12 (7-18) mg/dL Creatinine 1.2 (0.70-1.30) mg/dL Est GFR (CKD-EPI 2020) 65.06 (mL/min/1.73m2) Glucose 104 (74-106) mg/dL Calcium 9.0 (8.5-10.1) mg/dL Magnesium 1.8 (1.8-2.4) mg/dL Total Bilirubin 0.36 (0.2-1.0) mg/dL AST 28 (15-37) U/L ALT 33 (16-63) U/L Alkaline Phosphatase 100 (46-116) U/L Troponin I 31 28 (<or=76) ng/L NT-Pro-B Natriuret Pep 3602 H (<300) pg/mL Total Protein 7.3 (6.4-8.2) g/dL Albumin 3.5 (3.4-5.0) g/dL COVID-19 Source SARS-CoV-2 (PCR) Influenza Type A (PCR) Influenza Type B (PCR) RSV (PCR) Intake and Output - 24 Hour Total 05/23/24 16:58 thru 05/23/24 17:37 Intake Total 10 Balance 10 Weight 118.841 kg Intake: IV 10 Falls Risk Assessment History of Falls No History 05/23/24 17:37 Contributing Factors Impairments 05/23/24 17:37 Ambulatory Aids Independent 05/23/24 17:37 Tubes/Lines With any additional score 05/23/24 17:37 Gait Evaluation No gait disturbance 05/23/24 17:37 Cognition No cognitive impairment 05/23/24 17:37 Fall Total Score 23 05/23/24 17:37 Level of Risk Standard/Low Risk 05/23/24 17:37 Problems (Last Reviewed 05/24/24 @ 06:12 by Bryan Lewis) HTN (hypertension) (Chronic) Atypical chest pain (Acute) CHF (congestive heart failure) (Chronic) Near syncope (Acute) Bigeminal rhythm (Acute) Hypomagnesemia (Chronic) 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 Information / Comments: All questions answered at Hand off Report received from: Sonia Jackson RN
[2024-05-24 11:17] LABS: COVID-19 PCR Negative (Negative); Influenza A PCR Negative (Negative); Influenza B PCR Negative (Negative); RSV PCR Negative (Negative)
[2024-05-24 11:23] LABS: Source Nasopharynx
--- NOTE | 2024-05-24 15:42 | W.PC.ACHO ---
Registration Status: Primary Language: Preferred Language: ED Information & Data Chief Complaint Dizzy/Sync 05/23/24 18:14 Triage Note Patient reported that her 05/23/24 17:04 hands are tingly and his chest feels funny and he is having brain fog, all these symptoms started last night. state he had his pacemaker changed 1 week ago Most Recent Vital Signs Temperature 36.9 C 05/24/24 15:00 Temperature Source Oral 05/23/24 17:04 Pulse 52 L 05/24/24 15:28 Pulse Rhythm Regular 05/24/24 15:00 Pulse 60 05/24/24 14:40 Respiratory Rate 19 05/24/24 15:00 Respiratory Effort Normal 05/24/24 15:00 Respiratory Depth Normal 05/24/24 15:00 Respiratory Pattern Normal 05/24/24 15:00 Blood Pressure 123/75 05/24/24 15:28 Blood Pressure Mean 99 05/24/24 14:00 Blood Pressure Position Sitting 05/23/24 17:04 Pulse Oximetry 96 05/24/24 15:00 Oxygen Delivery Method Room Air 05/24/24 15:00 Oxygen Flow Rate 0 05/24/24 15:00 Pain Level 0 05/24/24 15:00 Allergies No Known Allergies Allergy (Unverified 05/10/24 10:59) Precautions Isolation Standard precaution 05/23/24 17:30 Active Medications Generic Name Dose Route Start Last Admin Trade Name Darylq PRN Reason Stop Dose Admin Atorvastatin Calcium 80 mg 05/24/24 08:30 05/24/24 09:43 Atorvastatin 40 Mg Tab PO 80 mg DAILY CARLOS Administration Enoxaparin Sodium 40 mg 05/24/24 07:00 05/24/24 07:20 Enoxaparin 40 Mg/0.4 Ml Syr SC 40 mg Q24H CARLOS Administration Losartan Potassium 25 mg 05/24/24 08:30 05/24/24 08:38 Losartan 25 Mg Tab PO 25 mg DAILY CARLOS Administration Metoprolol Tartrate 25 mg 05/24/24 07:00 05/24/24 13:04 Metoprolol 25 Mg Tab PO 25 mg Q6H CARLOS Administration IV IV Catheter Type [Right Saline Lock Antecubital] IV Catheter Gauge [Right 18 Antecubital] Diet Orders Category Date Time Status Heart Healthy Eating [DIET] Nutrition 05/24/24 Breakfast Active Diagnostics 05/24/24 05/24/2405/24/25 Range/Units 14:57 10:36 07:41 WBC (4.4-10.8) 10^3/uL RBC (4.36-5.78) 10^6/uL Hgb (13.5-17.5) g/dL Hct (40.0-50.0) % MCV (80-95) fL MCH (27.0-33.0) pg MCHC (32.0-36.0) % RDW (11.8-14.1) % Plt Count (130-400) 10^3/uL MPV (8.0-11.0) fL Immature Gran % % Neutrophils % % Lymphocytes % % Monocytes % % Eosinophils % % Basophils % % Nucleated RBC % (0.0-0.3) % Absolute Neutrophils (1.2-6.7) 10^3/uL Absolute Lymphocytes (1.2-3.4) 10^3/uL Absolute Monocytes (0.1-0.8) 10^3/uL Absolute Eosinophils (0.0-0.7) 10^3/uL Absolute Basophils (0.0-0.2) 10^3/uL PT (9.1-11.1) sec INR (0.9-1.1) Sodium (136-145) mmol/L Potassium (3.5-5.1) mmol/L Chloride (98-107) mmol/L Carbon Dioxide (21.0-32.0) mmol/L Anion Gap (3-11) mmol/L BUN (7-18) mg/dL Creatinine (0.70-1.30) mg/dL Est GFR (CKD-EPI 2020) (mL/min/1.73m2) Glucose (74-106) mg/dL Calcium (8.5-10.1) mg/dL Magnesium (1.8-2.4) mg/dL Total Bilirubin (0.2-1.0) mg/dL AST (15-37) U/L ALT (16-63) U/L Alkaline Phosphatase (46-116) U/L Troponin I 28 (<or=76) ng/L NT-Pro-B Natriuret Pep (<300) pg/mL Total Protein (6.4-8.2) g/dL Albumin (3.4-5.0) g/dL TSH Pending COVID-19 Source Nasopharynx SARS-CoV-2 (PCR) Negative (Negative) Influenza Type A (PCR) Negative (Negative) Influenza Type B (PCR) Negative (Negative) RSV (PCR) Negative (Negative) 05/23/24 05/23/24 05/23/24 Range/Units 20:23 18:55 17:35 WBC 6.93 (4.4-10.8) 10^3/uL RBC 4.65 (4.36-5.78) 10^6/uL Hgb 15.1 (13.5-17.5) g/dL Hct 46.8 (40.0-50.0) % MCV 101 H (80-95) fL MCH 32.5 (27.0-33.0) pg MCHC 32.3 (32.0-36.0) % RDW 12.4 (11.8-14.1) % Plt Count 240 (130-400) 10^3/uL MPV 11.1 H (8.0-11.0) fL Immature Gran % 0.1 % Neutrophils % 65.5 % Lymphocytes % 25.7 % Monocytes % 5.6 % Eosinophils % 1.7 % Basophils % 1.4 % Nucleated RBC % 0.0 (0.0-0.3) % Absolute Neutrophils 4.53 (1.2-6.7) 10^3/uL Absolute Lymphocytes 1.78 (1.2-3.4) 10^3/uL Absolute Monocytes 0.39 (0.1-0.8) 10^3/uL Absolute Eosinophils 0.12 (0.0-0.7) 10^3/uL Absolute Basophils 0.10 (0.0-0.2) 10^3/uL PT 10.3 (9.1-11.1) sec INR 1.0 (0.9-1.1) Sodium 143 (136-145) mmol/L Potassium 4.2 (3.5-5.1) mmol/L Chloride 105 (98-107) mmol/L Carbon Dioxide 31.4 (21.0-32.0) mmol/L Anion Gap 6.6 (3-11) mmol/L BUN 12 (7-18) mg/dL Creatinine 1.2 (0.70-1.30) mg/dL Est GFR (CKD-EPI 2020) 65.06 (mL/min/1.73m2) Glucose 104 (74-106) mg/dL Calcium 9.0 (8.5-10.1) mg/dL Magnesium 1.8 (1.8-2.4) mg/dL Total Bilirubin 0.36 (0.2-1.0) mg/dL AST 28 (15-37) U/L ALT 33 (16-63) U/L Alkaline Phosphatase 100 (46-116) U/L Troponin I 38 31 28 (<or=76) ng/L NT-Pro-B Natriuret Pep 3602 H (<300) pg/mL Total Protein 7.3 (6.4-8.2) g/dL Albumin 3.5 (3.4-5.0) g/dL TSH COVID-19 Source SARS-CoV-2 (PCR) (Negative) Influenza Type A (PCR) (Negative) Influenza Type B (PCR) (Negative) RSV (PCR) (Negative) Intake and Output - 24 Hour Total 05/23/24 16:58 thru 05/24/24 15:00 Intake Total 10 Balance 10 Weight 118.841 kg Intake: IV 10 Other: Urine Appearance Clear Falls Risk Assessment History of Falls No History 05/24/24 15:00 Contributing Factors No Factors 05/24/24 15:00 Ambulatory Aids Independent 05/24/24 15:00 Tubes/Lines None 05/24/24 15:00 Gait Evaluation No gait disturbance 05/24/24 15:00 Cognition No cognitive impairment 05/23/24 17:37 Fall Total Score 0 05/24/24 15:00 Level of Risk Standard/Low Risk 05/24/24 15:00 Problems (Last Reviewed 05/24/24 @ 06:12 by Bryan Lewis) HTN (hypertension) (Chronic) Atypical chest pain (Acute) CHF (congestive heart failure) (Chronic) Near syncope (Acute) Bigeminal rhythm (Acute) Hypomagnesemia (Chronic) 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 Information / Comments: Came from home with c/o chest discomfort. Recent pacemaker replacement x 2 weeks ago per pt. In ED, VS stable, intermittent PVC on monitor, chest xray negative and EKG unremarkable. Pt has increased BNP, trops stable. Pt is a/o x 4 and independent with ambulation. IV to R AC, clean dry and intact dressing and flushes well. Pt denies any continued chest discomfort or pain at this time. Report received from:Maame STEWART at 1440.
[2024-05-24] MEDS: Normal Saline Flush 10 ML SYR IVP ×2 (16:18→20:12)
[2024-05-24 20:56] LABS: TSH (W/Ref FT4) 10.76 uIU/mL (0.36-3.74)
[2024-05-24 21:16] LABS: FREE T4 0.94 ng/dL (0.76-1.46)
[2024-05-24 23:29] LABS: Bilirubin Negative (Negative); Blood Negative (Negative); Clarity Clear (Clear); Glucose Negative (Negative); Ketones Negative (Negative); Leukocyte Esterase Negative (Negative); Nitrite Negative (Negative); Urobilinogen 0.2 mg/dL (Up to 0.2); pH 5.5 (5-8)
[2024-05-25] VITALS (9 sets, daily range): BP systolic 111–137; BP diastolic 62–82; PULSE 46–90; RESP 15–20; TEMP 36.3–37.1; O2SAT 91–97
[2024-05-25 07:02] LABS: HCT 47.6 % (40.0-50.0); HGB 15.7 g/dL (13.5-17.5); MCH 32.5 pg (27.0-33.0); MCV 99 fL (80-95); MPV 11.2 fL (8.0-11.0); Platelet Count 232 10^3/uL (130-400); RBC 4.83 10^6/uL (4.36-5.78); RDW 12.6 % (11.8-14.1); RDW-SD 44.9 fL
[2024-05-25 07:34] LABS: ALT 28 U/L (16-63); AST 34 U/L (15-37); Albumin 3.5 g/dL (3.4-5.0); Alkaline Phosphatase 104 U/L (46-116); Anion Gap 6.2 mmol/L (3-11); BUN 24 mg/dL (7-18); Bilirubin, Total 0.52 mg/dL (0.2-1.0); CO2 32.8 mmol/L (21.0-32.0); CREATININE 1.4 mg/dL (0.70-1.30); Calcium 9.2 mg/dL (8.5-10.1); Chloride 105 mmol/L (98-107); Estimated GFR 54.07 (mL/min/1.73m2); Glucose 112 mg/dL (74-106); Magnesium 1.9 mg/dL (1.8-2.4); Potassium 4.1 mmol/L (3.5-5.1); Sodium 144 mmol/L (136-145); Total Protein 7.3 g/dL (6.4-8.2)
[2024-05-25] MEDS: Aspirin 81 MG CHEW CH (08:48)
[2024-05-25] MEDS: Atorvastatin 40 MG TAB 80 MG PO (08:48)
[2024-05-25] MEDS: Normal Saline Flush 10 ML SYR IVP ×2 (08:48→19:57)
[2024-05-25] MEDS: Losartan 25 MG TAB PO (08:48)
[2024-05-25] MEDS: Enoxaparin 40 MG/0.4 ML SYR SC (08:49)
[2024-05-25] MEDS: Furosemide 40 MG/4 ML VIAL IVP (08:50)
--- NOTE | 2024-05-25 09:28 | INITIAL_ITS ---
Date of service: 05/25/24 Time of Service: 09:28 Care Management Initial Assmt Initial Assessment Reason for Hospitalization: near syncope, bigeminal PVC's, CHF Functional Status/Living Situation Patient Presentation: Leander presented to the ED early yesterday morning with c/o chest pressure and near syncope. Jefferson has a pacemaker, and the battery was replaced about 2 weeks ago. He is followed at [facility], but they were unable to accept him in transfer and were thus consulted. Leander was reporting chest pain and was receiving nitro and a STAT EKG when CM attempted to meet with him, so interview was kept short. 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) Instrumental Activities of Daily Living (ADLs): Independent Medications Medication Management: No Issues/Barriers identified Advance Directives Advance Directives: Do you have an Advance Directive: Y 06/03/13 19:00 AD On File at [facility]: N 06/11/22 13:52 Date Asked 05/23/24 05/23/24 17:04 AD Date Reviewed COLST On File at [facility] COLST Date Scanned Code Status Resuscitation Status DNR Insurance Coverage/Financial Issues Insurance: [employer] Medicare Replacement Care Team Visit Care Team Role Provider Type Gabriela Noble NP MD [facility] STAFF PHYSICIAN Frankie Sheehan MD Primary Care Provider [facility] STAFF PHYSICIAN Jammie Ross MD Emergency Provider [facility] STAFF PHYSICIAN Bryan Lewis Admit Provider NON-[facility] STAFF PHYSICIAN Attending Provider Discharge Potential Discharge Needs: Consult Consult Services Needed: Cardiology and PCP F/U Appt Anticipated Barriers to Discharge: None Identified Patient/Family Education Needs: Review discharge instructions, discuss Ask Me Three Transportation: Private vehicle Plan: Anticipate that Leander will be discharged home with no new services. He will f/u with his PCP and with his cardiology providers at [facility] and continue per his plan of care. He will likely transport in a private vehicle. CM will continue to follow and to update the plan as needed. Social Determinants of Health Screening Social Determinants of Health last assessed: 05/25/24 Will the Patient Participate in the Screening?: Yes Do you worry about having a steady place to live?: no Problems where you live: no known problems In the past 12 months, have you had to go without electric, gas, oil or water in your home?: no Have you or anyone in your house had to go without enough food to eat?: no Has lack of transportation kept you from medical appointments or from doing things needed for daily living?: no Has anyone in your life made you feel unsafe or unsupported?: no How hard is it for you to pay for the very basics like food, housing, medical care, and heating? Would you say it is:: Not hard at all Do you want help finding or keeping work or a job?: I do not need or want help If for any reason you need help with day-to-day activities such as bathing, preparing meals, shopping, managing finances, etc., do you get the help you need?: I don?t need any help How often do you feel lonely or isolated from those around you?: Never Do you speak a language other than Italian at home?: No Does the patient want assistance with any of the above?: No PFSH All Active Problems (Updated 05/24/24 @ 06:18 by Bryan Lewis) HTN (hypertension) (Chronic) Atypical chest pain (Acute) CHF (congestive heart failure) (Chronic) Heart failure (Acute) Chest pressure (Acute) Near syncope (Acute) Bigeminal rhythm (Acute) Cellulitis (Acute) Pacemaker at end of battery life (Acute) Chest pain (Acute) Elevated TSH (Chronic) Hypomagnesemia (Chronic) Acute exacerbation of chronic low back pain (Acute) Chronic low back pain (Chronic) Sick sinus syndrome (Chronic 06/13/13) Status post placement of cardiac pacemaker (Chronic 06/14/13) Severe back pain (Acute) Radiculopathy due to lumbar intervertebral disc disorder (Acute) Social History Smoking/Tobacco Use Status: Former Tobacco Use Smoking risk assessment performed?: Yes Alcohol Intake: former Drug use: Never Substance use type: does not use Housing: house Do you feel safe at home: Yes Do you feel safe in your relationship?: Yes Readmission Within the Past 30 Days Yes or No: Yes Date of First Admission Date of 1st Admission: 05/03/24 Date of this Admission Date of Admission: 05/24/24
--- NOTE | 2024-05-25 13:30 | RT.EKG_ITS ---
APPROVED REPORT Exam: Resting ECG Reason for Exam: dysrhythmia Patient Location: I HR:82 bpm ECG Measurements Heart Rate 82 AXIS IA [id number] P [id number] QRSd 126 QRS -58 QT 416 T 126 QTc 486 Conclusion Probable sinus rhythm ventricular premature complexes...sequence of 2 V complexes LVH with IVCD, LAD and secondary repol abnrm...multi-criteria, wQRSd, abnr ST-T
[2024-05-25] MEDS: nitroGLYcerin 0.4 MG TAB SL (13:49)
--- NOTE | 2024-05-25 15:05 | CHAPLAIN ---
Leander was sitting up at the edge of the bed when I visited. He said he's doing ok and is in touch with family. We talked about his dad, also Leander Armstrong, who was a patient here before and has since .
[2024-05-25 16:00] LABS: Troponin I 21 ng/L (<or=76)
--- NOTE | 2024-05-25 18:52 | PGE_ITS ---
Date of Service Date of service: 05/25/24 Time of Service: 18:53 Assessment and Plan Assessment and plan (1) Near syncope: Status: Acute Assessment and plan: This is a 68-year-old gentleman with significant ectopy, bigeminal PVCs, pacemaker now working better having battery renewed. [facility] cardiology in consultation, was okay with patient being admitted to this institution, diuresed for his worsening of CHF having a reduced left ventricular ejection fraction recently with hospitalization at that facility. Long-term, he should follow-up with [facility] cardiology and EP. He is a full code. Spoke with [facility] today regarding transfer patient had some chest pain with sl relief from ntg. Troponin drawn and negative. Echo 30% EF, similar to one done recently at [facility]. They are not concerned and provided an outpatient appointment at [facility] June 01 @ 2:40 PM EP clinic 4A w Candido Pemberton. Patient states his CP was less after (2) Atypical chest pain: Status: Acute Assessment and plan: IV Lasix twice daily for CHF Troponins negative. Echocardiogram EF 30-35% and hypkenesia - unchanged from recent echo @ [facility] Metoprolol held Continue atorvastatin as well as a baby aspirin. Heparinization is not indicated. Followup appt with [facility] Cardiology June 01 @ 2:40 PM - [facility] 4A (3) Bigeminal rhythm: Status: Acute Assessment and plan: Monitor blood pressure adjust as needed. (4) HTN (hypertension): Status: Chronic Assessment and plan: Not controlled presently on losartan with patient to be diuresed with IV lasix (5) CHF (congestive heart failure): Status: Chronic Assessment and plan: Reduced left ventricular ejection fraction by recent hospitalization at [facility]. BNP is elevated but better than previous measurement 2 weeks ago when he had initial evaluation at this facility for failure of pacemaker. (6) Status post placement of cardiac pacemaker: Status: Chronic Assessment and plan: Functional with battery replacement. Followup at [facility] Cardiology June 01 at 2:40 PM Interrogation of pacemaker by cards - working as it should. (7) Hypomagnesemia: Status: Resolved Assessment and plan: 1.9 Exam Narrative Exam Narrative: General: Morbid obesity. He is alert and oriented x 3 and in no acute distress. HEENT: Normocephalic, long, thin smalls hair and garcia with course facial features. Eyes with pupils equal and reactive to light symmetrically, extraocular movement intact and sclera anicteric. Oropharynx with moist mucosa and poor dentition with many missing teeth and discolored teeth. Neck: Supple without JVD. Back: Kyphotic with good posture. No CVA tenderness. Lungs: Fair aeration clear to auscultation. No focalizing rales or rhonchi. Heart: Irregular rhythm with no appreciable murmur or gallop. Bradycardia 50s. Palpable subcutaneous pacemaker over right upper chest. Abdomen: Obese contour, soft nontender to palpation without palpable hepatosplenomegaly. Bowels are positive all quadrants. Genitalia: Exam deferred. Extremities: Trace pitting edema both lower extremities with no clubbing or cyanosis. Fair capillary refill. Skin: Normal color, warm and dry. Neuro: Cranial nerves II through XII gross intact, no focalized motor deficits. No tremor. Psych: Normal affect and mood. No abnormal thought processes. Remote and recent memory grossly intact. Objective Last Vital Signs Temp 36.7 C 05/25/24 15:06 Pulse 48 L 05/25/24 15:06 Resp 16 05/25/24 15:06 BP 119/72 05/25/24 15:06 Pulse Ox 93 05/25/24 15:06 Laboratory Results - last 24 hr 05/24/24 05/24/24 05/25/24 07:41 23:20 06:33 WBC 7.30 RBC 4.83 Hgb 15.7 Hct 47.6 MCV 99 H MCH 32.5 MCHC 33.0 RDW 12.6 Plt Count 232 MPV 11.2 H Sodium 144 Potassium 4.1 Chloride 105 Carbon Dioxide 32.8 H Anion Gap 6.2 BUN 24 H Creatinine 1.4 H Est GFR (CKD-EPI 2020) 54.07 Glucose 112 H Calcium 9.2 Magnesium 1.9 Total Bilirubin 0.52 AST 34 ALT 28 Alkaline Phosphatase 104 Troponin I Total Protein 7.3 Albumin 3.5 TSH 10.76 H Free T4 0.94 Urine Color Yellow Urine Clarity Clear Urine pH 5.5 Ur Specific [place] 1.010 Urine Protein Negative Urine Ketones Negative Urine Blood Negative Urine Nitrite Negative Urine Bilirubin Negative Urine Urobilinogen 0.2 Ur Leukocyte Esterase Negative Urine Glucose Negative 05/25/24 15:20 WBC RBC Hgb Hct MCV MCH MCHC RDW Plt Count MPV Sodium Potassium Chloride Carbon Dioxide Anion Gap BUN Creatinine Est GFR (CKD-EPI 2020) Glucose Calcium Magnesium Total Bilirubin AST ALT Alkaline Phosphatase Troponin I 21 Total Protein Albumin TSH Free T4 Urine Color Urine Clarity Urine pH Ur Specific [place] Urine Protein Urine Ketones Urine Blood Urine Nitrite Urine Bilirubin Urine Urobilinogen Ur Leukocyte Esterase Urine Glucose Time Spent with Patient Time Spent with Patient: >50 minutes Time was spent: preparing to see the patient(eg.review tests), ordering medications,tests, procedures, referring, communicating with other health school child care attendant, indepentently interpreting results, counseling the patient and care coordination
[2024-05-26] VITALS (56 sets, daily range): BP systolic 90–132; BP diastolic 60–76; PULSE 52–88; RESP 15–20; TEMP 36.3–37; O2SAT 94–97
[2024-05-26 06:46] LABS: HCT 44.6 % (40.0-50.0); HGB 14.9 g/dL (13.5-17.5); MCH 32.5 pg (27.0-33.0); MCHC 33.4 % (32.0-36.0); MCV 97 fL (80-95); MPV 11.6 fL (8.0-11.0); Platelet Count 205 10^3/uL (130-400); RBC 4.58 10^6/uL (4.36-5.78); RDW 12.4 % (11.8-14.1); RDW-SD 44.2 fL; WBC 6.57 10^3/uL (4.4-10.8)
[2024-05-26 07:00] LABS: ALT 27 U/L (16-63); AST 34 U/L (15-37); Albumin 3.2 g/dL (3.4-5.0); Alkaline Phosphatase 92 U/L (46-116); Anion Gap 4.6 mmol/L (3-11); BUN 25 mg/dL (7-18); CO2 30.4 mmol/L (21.0-32.0); CREATININE 1.3 mg/dL (0.70-1.30); Chloride 106 mmol/L (98-107); Glucose 115 mg/dL (74-106); Magnesium 1.9 mg/dL (1.8-2.4); Potassium 3.9 mmol/L (3.5-5.1); Sodium 141 mmol/L (136-145); Total Protein 6.6 g/dL (6.4-8.2)
[2024-05-26] MEDS: Atorvastatin 40 MG TAB 80 MG PO (07:44)
[2024-05-26] MEDS: Furosemide 40 MG/4 ML VIAL IVP ×2 (07:44→16:03)
[2024-05-26] MEDS: Losartan 25 MG TAB PO (07:45)
[2024-05-26] MEDS: Normal Saline Flush 10 ML SYR IVP ×2 (07:45→20:05)
[2024-05-26] MEDS: Enoxaparin 40 MG/0.4 ML SYR SC (07:45)
[2024-05-26] MEDS: Aspirin 81 MG CHEW CH (07:45)
--- NOTE | 2024-05-26 09:43 | W.PM.PROGNOT ---
Date of Service Date of service: 05/26/24 Time of Service: 09:43 Assessment and Plan Assessment and plan (1) Near syncope: Assessment and plan: This is a 68-year-old gentleman with significant ectopy, bigeminal PVCs, pacemaker now working better status post pacemaker change in April 2023 [facility] cardiology consult: Okay with patient to be admitted at [facility] initially thought that the patient would be transferred but then later on the patient was found out not to be accepted Recommendation: Diuresed for his worsening of HFrEF with hospitalization at that facility. Follow-up with [facility] cardiology and EP. He is a full code. Echo 30% EF, similar to one done recently at [facility]. They are not concerned and provided an outpatient appointment at [facility] June 01 @ 2:40 PM EP clinic 4A praveena Pemberton. Chest pain related by cardiology consult pending Dr. Bailey that this is mostly musculoskeletal pain and not ACS/cardiac (2) Atypical chest pain: Status: Acute Assessment and plan: Continue IV Lasix twice daily for CHF then transition to oral Troponins negative. As per report: Echocardiogram EF 30-35% and hypkenesia - unchanged from recent echo @ [facility] Metoprolol held during acute diuresis but to be resumed on discharge Ongoing home dose atorvastatin as well as a baby aspirin. No recommendation for heparinization Followup appt with [facility] Cardiology June 01 @ 2:40 PM - [facility] 4A (3) Bigeminal rhythm: Status: Acute Assessment and plan: Monitor blood pressure adjust as needed. Less ectopy as per EKG anticipated with the improved diuresis (4) HTN (hypertension): Assessment and plan: Continue home dose losartan and with patient to be diuresed with IV lasix this should improve control of blood pressure (5) CHF (congestive heart failure): Assessment and plan: HFrEF with LVEF 30 to 35%-BNP is elevated but this is an improvement from previous measurement 2 weeks ago when he had initial evaluation at this facility for failure of pacemaker. (6) Status post placement of cardiac pacemaker: Assessment and plan: Improved functionality with battery replacement. Discussed with patient: Followup at [facility] Cardiology June 01 at 2:40 PM Interrogation of pacemaker by cards - working as it should. Report in chart (7) Hypomagnesemia: Assessment and plan: Resolved status post replacement mag at 1.[address] Nizza Subjective Subjective Patient reports: no new complaints, feels better, tolerating liquids well, tolerating a regular diet, flatus, bowel movement and shortness of breath (improving); denies diarrhea, blood in stool, nausea, vomiting or fever Exam Narrative Exam Narrative: Alert and x 4, no neurodeficit, clear lungs with decreased bases and fine crackles left base S1-S2, regular heart, no murmur,, pulses positive to all 4 extremities, abdomen is nonacute, no CVA tenderness Objective Last Vital Signs Temp 36.3 C L 05/26/24 07:21 Pulse 52 L 05/26/24 07:21 Resp 18 05/26/24 07:21 BP 125/74 05/26/24 07:21 Pulse Ox 95 05/26/24 07:21 Laboratory Results - last 24 hr 05/25/24 05/26/24 15:20 06:15 WBC 6.57 RBC 4.58 Hgb 14.9 Hct 44.6 MCV 97 H MCH 32.5 MCHC 33.4 RDW 12.4 Plt Count 205 MPV 11.6 H Sodium 141 Potassium 3.9 Chloride 106 Carbon Dioxide 30.4 Anion Gap 4.6 BUN 25 H Creatinine 1.3 Est GFR (CKD-EPI 2020) 59.10 Glucose 115 H Calcium 9.0 Magnesium 1.9 Total Bilirubin 0.60 AST 34 ALT 27 Alkaline Phosphatase 92 Troponin I 21 Total Protein 6.6 Albumin 3.2 L Time Spent with Patient Time Spent with Patient: >50 minutes Time was spent: preparing to see the patient(eg.review tests), obtaining and/or reviewing separately otained hiistory, ordering medications,tests, procedures, referring, communicating with other health certified social workers in health care, indepentently interpreting results, counseling the patient and care coordination
[2024-05-26] MEDS: nitroGLYcerin 0.4 MG TAB SL (10:28)
[2024-05-26] MEDS: Pantoprazole 40 MG VIAL IVP (13:03)
--- NOTE | 2024-05-26 16:00 | NUR.NOTE ---
Nursing NotYou 05/26/2024 3:58 PM ? Nuvia Garza Shared a file: [id number] Parvin, I saw this note on the [facility] monitor screen. I checked the vinyl signs done on med surg and in ED and can see many 40s and '50s heart rates recorded by staff. But I think all of those are off and spo2 probe and are wrong. I have checked his telemetry record since the Ed. He was never below 55 in the Ed. And he hasn't been below 60 on MedSurg. I will tell CC to ask lnas to take a pulse manually and not use sa02 probes. I also imported all the HRs from [place] into [employer] to clean up his record. You 05/26/2024 3:59 PM ? Vitals entries show hrs in the 40s&50's but he's never that low. Sao2 probe doesn't read him -cant use it for vitalse: sent to Parvin DEJESUS and Noel MEDRANO MS
--- NOTE | 2024-05-26 17:06 | PDOC.CMPRO ---
Date of service: 05/26/24 Time of Service: 14:00 Care Management Progress Note Progress Note Text Progress Note Text: Jefferson was sitting in the bedside chair when CM met with him today. He was very pleasant, and quite talkative today. He did state some frustration at still being in the hospital. He also stated that he is trying to find out what his last pacer was set at. He feels that his new pacer is set at too low of a heart rate for him, and he thinks he would benefit from it being set at the same rate as his previous pacer. There is a record of his pacer placement surgery, but no mention of the settings. CM called over to cardiology and asked if they could find the settings. VM was left. Jefferson is ordered for a stress test and a cardiology consult. Discharge Potential Discharge Needs: Consult Consult Services Needed: Cardiology, PCP F/U Appt and Other (stress testing) Anticipated Barriers to Discharge: None Identified Patient/Family Education Needs: Review discharge instructions, discuss Ask Me Three Transportation: Private vehicle Plan: Anticipate that Leander will be discharged home with no new services. He will f/u with his PCP on 05/31 at 0950 and with [facility] EP clinic 4A on 06/01 at 2:40. Jefferson will continue per his plan of care and transport home in a private vehicle. Social Determinants of Health Screening Social Determinants of Health last assessed: 05/26/24 Will the Patient Participate in the Screening?: Yes Do you worry about having a steady place to live?: no Problems where you live: no known problems In the past 12 months, have you had to go without electric, gas, oil or water in your home?: no Have you or anyone in your house had to go without enough food to eat?: no Has lack of transportation kept you from medical appointments or from doing things needed for daily living?: no Has anyone in your life made you feel unsafe or unsupported?: no How hard is it for you to pay for the very basics like food, housing, medical care, and heating? Would you say it is:: Not hard at all Do you want help finding or keeping work or a job?: I do not need or want help If for any reason you need help with day-to-day activities such as bathing, preparing meals, shopping, managing finances, etc., do you get the help you need?: I don?t need any help How often do you feel lonely or isolated from those around you?: Never Do you speak a language other than Georgian at home?: No Does the patient want assistance with any of the above?: No
[2024-05-27 00:19] VITALS: BP 150/80; PULSE 64; RESP 18; TEMP 36.4; O2SAT 97
[2024-05-27 04:01] VITALS: BP 137/80; PULSE 61; RESP 18; TEMP 36.5; O2SAT 95
[2024-05-27 06:24] VITALS: BP 118/74; PULSE 52; RESP 20; TEMP 36.9; O2SAT 53
[2024-05-27 06:49] LABS: HCT 45.7 % (40.0-50.0); HGB 15.2 g/dL (13.5-17.5); MCH 32.8 pg (27.0-33.0); MCHC 33.3 % (32.0-36.0); MCV 99 fL (80-95); MPV 11.4 fL (8.0-11.0); Platelet Count 207 10^3/uL (130-400); RBC 4.63 10^6/uL (4.36-5.78); RDW 12.4 % (11.8-14.1); RDW-SD 45.1 fL; WBC 7.79 10^3/uL (4.4-10.8)
[2024-05-27 07:06] LABS: ALT 31 U/L (16-63); AST 33 U/L (15-37); Albumin 3.3 g/dL (3.4-5.0); Alkaline Phosphatase 97 U/L (46-116); BUN 30 mg/dL (7-18); Bilirubin, Total 0.64 mg/dL (0.2-1.0); CREATININE 1.7 mg/dL (0.70-1.30); Calcium 8.9 mg/dL (8.5-10.1); Chloride 106 mmol/L (98-107); Estimated GFR 42.83 (mL/min/1.73m2); Glucose 105 mg/dL (74-106); Magnesium 1.9 mg/dL (1.8-2.4); Sodium 142 mmol/L (136-145); Total Protein 6.9 g/dL (6.4-8.2)
[2024-05-27] MEDS: Pantoprazole 40 MG VIAL IVP (08:52)
[2024-05-27] MEDS: Furosemide 40 MG/4 ML VIAL IVP (08:52)
[2024-05-27] MEDS: Enoxaparin 40 MG/0.4 ML SYR SC (08:52)
[2024-05-27] MEDS: Normal Saline Flush 10 ML SYR IVP (08:53)
[2024-05-27] MEDS: Aspirin 81 MG CHEW CH (08:53)
[2024-05-27] MEDS: Atorvastatin 40 MG TAB 80 MG PO (08:53)
[2024-05-27] MEDS: Losartan 25 MG TAB PO (08:53)
--- NOTE | 2024-05-27 09:26 | PDOC.CMPRO ---
Date of service: 05/27/24 Time of Service: 09:26 Care Management Progress Note Progress Note Text Progress Note Text: CM received a call from Princess at cardiology office. She stated that there are no records available to determine what Jefferson's last pacer settings were. Jefferson has not been followed by Dr. Vargas here at [facility], but Dr. Vargas consult, and did not believe that Jefferson's symptoms are related to his pacer. Discharge Potential Discharge Needs: PCP F/U Appt (PCP at [facility] 05/31 at 0950) and Other (cardiology f/u 06/01 at 2;40 EP clinic 4A with Candido Pemberton Stress testing) Anticipated Barriers to Discharge: None Identified Patient/Family Education Needs: Review discharge instructions, discuss Ask Me Three Transportation: Private vehicle Plan: Anticipate that Lenader will be discharged home with no new services. He will f/u with his PCP on 05/31 at 0950 and with [facility] [place] 4[place] on 06/01 at 2:40. Jefferson will continue per his plan of care and transport home in a private vehicle. Social Determinants of Health Screening Social Determinants of Health last assessed: 05/27/24 Will the Patient Participate in the Screening?: Yes Do you worry about having a steady place to live?: no Problems where you live: no known problems In the past 12 months, have you had to go without electric, gas, oil or water in your home?: no Have you or anyone in your house had to go without enough food to eat?: no Has lack of transportation kept you from medical appointments or from doing things needed for daily living?: no Has anyone in your life made you feel unsafe or unsupported?: no How hard is it for you to pay for the very basics like food, housing, medical care, and heating? Would you say it is:: Not hard at all Do you want help finding or keeping work or a job?: I do not need or want help If for any reason you need help with day-to-day activities such as bathing, preparing meals, shopping, managing finances, etc., do you get the help you need?: I don?t need any help How often do you feel lonely or isolated from those around you?: Never Do you speak a language other than Zambian at home?: No Does the patient want assistance with any of the above?: No
--- NOTE | 2024-05-27 10:54 | W.PM.DS.N ---
Date of service: 05/27/24 Time of Service: 10:54 DS: Diagnosis Discharge Diagnosis (1) Near syncope: (2) Atypical chest pain: Status: Acute (3) Bigeminal rhythm: Status: Acute (4) HTN (hypertension): (5) CHF (congestive heart failure): (6) Status post placement of cardiac pacemaker: (7) Hypomagnesemia: Discharge Plan Disposition Patient Disposition: Home Condition: Improving Discharge Details Reason For Visit: Near-syncope, bigeminal pVCs, CHF, atypical chest Admit Date/Time: 05/24/24 06:33 Admit Provider: Bryan Lewis Attending Provider: Bryan Lewis Primary Care Provider: Deon Degroot Hospital Course Hospital Course: This 68 years old male patient with recent hospitalization 2 weeks prior to presentation failure pacemaker (placed for SA node dysfunction) secondary to battery expiring with replacement at [facility], HFrEF with left ventricular ejection fraction of 30% previously, hypertension presented to the ED at [facility] from 05/24/2024 for evaluation of sudden onset chest pressure. Chest pressure was reproducible with palpation, retrosternal with no radiation and no associated symptoms of dizziness or lightheadedness. The EKG showed a paced rhythm with ectopic beats. Workup in the ED resulted in negative troponins, and elevated BNP.cardiac monitoring showed patient having recurrent PVCs and bigeminy at times but pacemaker was functioning adequately. Recommendation for cardiology and EP were to continue IV Lasix for CHF exacerbation, trend troponins, and repeat echocardiogram; there was a recommendation for heparinization. During the stay the patient continued to receive IV Lasix, echocardiogram was repeated for LVEF similar to previous 1 at 30 to 35%. Cardiology consult with Dr. Vargas was completed and it was deemed safe for the patient to have an MPI but it was not available before Thursday thus a referral from the primary care provider will be necessary to complete an outpatient cardiac stress test/MPI. Attempted transfer to [facility] were not conclusive and the patient will have an outpatient follow-up with EP at [facility] on May at 1430. The patient will be discharged on oral Lasix, and increased dose of losartan and will need to follow-up with the primary care practitioner or cardiology regarding goal-directed medical therapy for his HFrEF. Telemetry monitoring during the stay showed that the patient was mostly in the 50s and 60s from heart rate, paced, first-degree AV block. Discussed with Dr. Unger Home Meds and New Rx's Prescriptions: New losartan 25 mg tablet 25 mg PO DAILY Qty: 30 0RF furosemide [Lasix] 40 mg tablet 40 mg PO DAILY Qty: 30 0RF Discontinued losartan 25 mg tablet 12.5 mg PO DAILY acetaminophen 325 mg Tablet 650 mg PO QID Qty: 0 0RF ibuprofen 600 mg tablet 600 mg PO Q6H PRNQty: 60 0RF Rx Instructions: take with food Discharge Instructions Instructions: Chest Pain, Adult ED, Heart Failure ED Additional Instructions: Please increase the dose of your losartan from 12.5mg to 25mg once a day. Also start taking lasix 40mg once a day. June 01 @ 2:40 PM [facility] - EP clinic 4A w Gelacio Pemberton. Return to the emergency department for new or worsening symptoms including new/different/worse chest pain, feeling like you are going to pass out, passing out, difficulty breathing, weakness, if you have any other concerns. Referrals: Mil Pemberton PA [[employer]] - (June 01 @ 2:40 PM EP clinic - [facility] 4A - w Mil Pemberton.) Deon Degroot [Primary Care Provider] - (post hospitalization visit within 10 days. ) Activity:: Activity as Tolerated Equipment/Supplies:: No Equipment Needed Diet:: Heart Healthy Discharge Orders Discharge Orders: Discharge Order (Routine); Ordered 05/27/24 Ordered By: Parvin Vargas DS: Summary Time Spent with Patient providing and/or coordinating discharge services: Greater than 30 minutes Status at Discharge Functional status at discharge: independent ambulation Overall status at discharge: patient is progressing back to baseline Mental Status: mental status grossly normal Speech and Movement: speech and movement normal Mood: congruent mood Affect: normal affect Quality:SDOH Health Related Social Needs: No Data to Display Exam Narrative Exam Narrative: Alert and x 4, no neurodeficit, clear lungs with decreased bases and fine crackles left base S1-S2, regular heart, no murmur, no further chest pain , pulses positive to all 4 extremities, abdomen is large, soft nontender, no CVA tenderness Psych Mental Status: mental status grossly normal Speech and Movement: speech and movement normal Mood: congruent mood Affect: normal affect DS: Data Vitals/I&O Vitals and I&O: Vital Signs Temperature 36.9 C 05/27/24 06:24 Temperature Source Temporal Artery Scan 05/27/24 06:24 Pulse 52 L 05/27/24 06:24 Pulse Rhythm Regular 05/24/24 15:00 Pulse 78 05/26/24 15:40 Respiratory Rate 20 05/27/24 06:24 Respiratory Effort Normal 05/24/24 15:00 Respiratory Depth Normal 05/24/24 15:00 Respiratory Pattern Normal 05/24/24 15:00 Blood Pressure 118/74 05/27/24 06:24 Blood Pressure Mean 99 05/24/24 14:00 Blood Pressure Position Sitting 05/23/24 17:04 Pulse Oximetry 53 L 05/27/24 06:24 Oxygen Delivery Method Room Air 05/27/24 06:24 Oxygen Flow Rate 0 05/27/24 06:24 Pain Level 0 05/27/24 04:01 Comment RN notified 05/26/24 15:49 Intake & Output 05/26/24 05/26/24 05/27/24 11:59 23:59 11:59 Intake Total Output Total 1000 / 1200 200 / 1200 950 / 950 Balance -1000 / -1190 -190 / -1190 -950 / -950 Weight 117.8 kg 119.113 kg Intake: IV Output: Urine 1000 / 1200 200 / 1200 950 / 950 Other: Urine Color Light Aliza Yellow Yellow Urine Appearance Clear Clear Clear Urine Odor None None Comment pt has been voided into toilet- not measured voidedin toilet Stool Size Moderate Moderate Stool Characteristics Formed Soft Formed Brown Data Completed and Pending Labs on day of discharge: Labs from last 24 hours 05/27/24 05/27/24 06:22 05:35 WBC 7.79 RBC 4.63 Hgb 15.2 Hct 45.7 MCV 99 H MCH 32.8 MCHC 33.3 RDW 12.4 Plt Count 207 MPV 11.4 H Sodium 142 Cancelled Potassium 4.0 Cancelled Chloride 106 Cancelled Carbon Dioxide 31.0 Cancelled Anion Gap 5.0 Cancelled BUN 30 H Cancelled Creatinine 1.7 H Cancelled Est GFR (CKD-EPI 2020) 42.83 Cancelled Glucose 105 Cancelled Calcium 8.9 Cancelled Magnesium 1.9 Total Bilirubin 0.64 AST 33 ALT 31 Alkaline Phosphatase 97 Total Protein 6.9 Albumin 3.3 L PFSH All Active Problems (Updated 05/27/24 @ 00:02 by Knowthena) Atypical chest pain (Acute) Heart failure (Acute) Chest pressure (Acute) Bigeminal rhythm (Acute) Cellulitis (Acute) Pacemaker at end of battery life (Acute) Chest pain (Acute) Elevated TSH (Chronic) Acute exacerbation of chronic low back pain (Acute) Chronic low back pain (Chronic) Sick sinus syndrome (Chronic 06/13/13) Severe back pain (Acute) Radiculopathy due to lumbar intervertebral disc disorder (Acute) Medical History (Updated 05/27/24 @ 00:02 by Knowthena) HTN (hypertension) CHF (congestive heart failure) Near syncope Hypomagnesemia Surgical History (Updated 05/27/24 @ 00:02 by Knowthena) Status post placement of cardiac pacemaker (06/14/13) Social History Smoking/Tobacco Use Status: Former Tobacco Use Smoking risk assessment performed?: Yes Alcohol Intake: former Drug use: Never Substance use type: does not use Housing: house Do you feel safe at home: Yes Do you feel safe in your relationship?: Yes Time Spent with Patient Time Spent with Patient: 70-84 minutes4 Time was spent: preparing to see the patient(eg.review tests), obtaining and/or reviewing separately otained hiistory, ordering medications,tests, procedures, referring, communicating with other health medicare coordinator, indepentently interpreting results, counseling the patient and care coordination
[2024-05-27 11:43] VITALS: BP 100/58; PULSE 52; RESP 18; TEMP 36.6; O2SAT 93
[2024-05-27 15:47] VITALS: BP 127/69; PULSE 54; RESP 19; TEMP 36.6; O2SAT 93
--- NOTE | 2024-05-27 16:37 | PDOC.CMDIS ---
Date of service: 05/27/24 Time of Service: 16:37 LACE Index Scoring Tool Questions: Length of Stay (in days): 3 Was the patient admitted via the E.D.?: Yes Comorbidities: Congestive Heart Failure E.D. Visits: 3 Answers: Total Score: 11 Risk of Readmission: High Risk Care Management Discharge Plan Reason for Hospitalization: near syncope, atypical chest pain Discharge Plan: Jefferson is discharged home this afternoon with no new services. He will f/u with his PCP on 05/[address] [facility] [place] on 06/01. Jefferson was given a return to work note to stay out until he sees cardiology. His stress test will have to be rescheduled as outpatient. He was very pleased to be discharged today, and is transporting home with his sister. Patient/Family Education Needs: Review of discharge instructions, activity, limitations and discuss ask me 3. SDOH Health Related Social Needs: No Data to Display
== END 2024-05-27 16:36 | disposition home or self-care (01) | DRG 291 ==
LOC: ER 05-24 04:56 → MS 05-24 14:54
PROVIDERS: Emergency Medicine; Nurse Practitioner Family; Admitting Provider Family Medicine; Emergency Provider Student in an Organized Health Care Education/Training Program; PCP Student in an Organized Health Care Education/Training Program; Responsible Provider Nurse Practitioner Acute Care; Visit Provider Family Medicine
DX: I50.23 Acute on chronic systolic (congestive) heart failure (principal); I49.3 Ventricular premature depolarization; I11.0 Hypertensive heart disease with heart failure; R55 Syncope and collapse; I49.8 Other specified cardiac arrhythmias; Z95.0 Presence of cardiac pacemaker; E83.42 Hypomagnesemia; R07.89 Other chest pain; Z66 Do not resuscitate; G89.29 Other chronic pain; I49.5 Sick sinus syndrome; M51.16 Intervertebral disc disorders with radiculopathy, lumbar region; Z68.35 Body mass index [BMI] 35.0-35.9, adult
CPT/HCPCS: 00123; 36415; 80048; 80053; 85027; 87637; 93005; 96372; 96374; 99285; J1650; 71046; 81003; 83735; 83880; 84439; 84443; 84484; 85025; 85610; 93010; 93306; 99223; 99233; 99239; J1940; J2470

== ENCOUNTER → 2024-05-26 14:10 | Outpatient (BNVA) | payer MEDICARE, SELFPAY | PROVIDERS: PCP Student in an Organized Health Care Education/Training Program; Referring Provider Student in an Organized Health Care Education/Training Program; Visit Provider Internal Medicine Cardiovascular Disease ==

== ENCOUNTER 2024-05-28 12:23 | Emergency (ER) | payer MEDICARE, SELFPAY ==
[2024-05-28] VITALS (19 sets, daily range): BP systolic 101–154; BP diastolic 60–92; PULSE 38–92; RESP 10–22; TEMP 36.9; O2SAT 92–98
--- NOTE | 2024-05-28 12:15 | RT.EKG_ITS ---
APPROVED REPORT Exam: Resting ECG Reason for Exam: chest pain Patient Location: E HR:83 bpm ECG Measurements Heart Rate 83 AXIS TX 236 P 0 QRSd 130 QRS -59 QT 390 T 114 QTc 458 Conclusion Sinus rhythm...normal P axis, V-rate 60- 99 Paired ventricular premature complexes...sequence of 2 V complexes Prolonged TX interval...TX >220, V-rate 50- 90 Left bundle branch block...QRSd>120, broad/notched R No STEMI
--- NOTE | 2024-05-28 12:30 | DI.RAD_ITS ---
Exam(s) XR PORTABLE CHEST AP EXAM: XR PORTABLE CHEST AP CLINICAL HISTORY: Chest pain TECHNIQUE: 2D digital imaging was performed. COMPARISON: CR XR CHEST 2V PA LATERAL from 05/23/2024 FINDINGS: Exam is limited by overlying monitoring leads. LUNGS: Clear. No pleural abnormality seen. HEART: Mildly enlarged. Pacemaker. AORTA: Normal diameter. BONES: Unremarkable for age. Soft tissues: Unremarkable. IMPRESSION: No acute findings. DATA REPOSITORY: RADIATION DOSE DELIVERED:
--- NOTE | 2024-05-28 12:34 | ED.GENADUL_ITS ---
Discharge Plan Disposition Patient Disposition: Home Discharge Details Clinical Impression: Chest pain, unspecified Primary Care Provider: Deon Degroot ED Provider: Eliezer Floyd Home Meds and New Rx's Prescriptions: New metoprolol succinate 25 mg tablet extended release 24 hr 12.5 mg PO DAILY Qty: 10 0RF Continued losartan 25 mg tablet 25 mg PO DAILY Qty: 30 0RF furosemide [Lasix] 40 mg tablet 40 mg PO DAILY Qty: 30 0RF Discharge Instructions Instructions: Chest Pain (DC) Additional Instructions: You are seen in the emergency department for your chest pain. Your blood work showed no sign of heart attack. Please begin taking this new medication. Please follow-up with the cardiology team at [facility]. You will benefit from additional testing to ensure that you do not have any narrowed arteries in your heart. Please return to the emergency department if your chest pain returns. Discharge Data Discharge Date/Time-TO BE ENTERED AT DEPARTURE: 05/28/24 16:51 HPI General Date/Time Provider Initiated Documentation: 05/28/24 12:32 . HPI Narrative: MDM This is an overall well-appearing 68-year-old male with history of sinus node dysfunction now in the emergency department in the setting of chest pain concerning for possibility of ACS for which patient will undergo troponin testing. Patient has not had any syncope however will interrogate pacemaker. Patient does not appear volume overloaded and is not short of breath so I am not concerned for acute heart failure. Given no shortness of breath I am not suspicious for PE so I did not send a D-dimer. No tearing quality to suggest aortic dissection. Will obtain chest x-ray though no fevers so my suspicion is low for pneumonia. No tearing pain out of proportion to suggest necrotizing soft tissue infection. No rash to chest to suggest zoster. I anticipate touch base with cardiology given description of chest pain and risk factors. HEART SCORE Chest pain Diagnostic Protocol: [- History/Physical/Gestalt: Moderately Suspicious (+1)] [-EKG: Normal and/or unchanged from prior EKG (0)] [- AGE: 65 and older (+2)] [- RISK FACTORS: 1 - 2 risk factors (+1)] [-TROPONIN: <= normal limit (0)] - TOTAL SCORE: 4 - Risk Factors: DM, current or recent smoker, HTN, HLD, family hx of CAD, obesity 3/2 Late charting due to patient care. Patient had an elevated heart score but was adamant wanting transfer to our local hospitalization. I was in touch with Tracee Rooney APRN for the cardiology service at [facility]. She advised that given the patient's significant burden of PVCs that his symptoms may be improved by a low-dose of metoprolol succinate at 12.5 mg a day. She also advised that he may benefit from a cardiac PET scan. I advised patient that based on his risk factors that he should be transferred to [facility]. He did not want to be transferred. His pacemaker was interrogated and did not reveal any pathology. His delta troponin was reassuring. I advised him that if he developed recurrent chest pain if he had any episodes of syncope lightheadedness or if he became short of breath that he should return to the emergency department. He understood his return indications and is discharged with empiric trial of expectant outpatient management. I attempted to call this patient at home today. His voicemail unfortunately was not set up so was not able to leave a message. Diagnostic interpretations performed by me: Per my independent interpretation chest x-ray shows: No acute cardiopulmonary process Per my independent interpretation EKG shows: Sinus rhythm at a rate of 83 with interventricular conduction delay and first- degree AV block. No ST segment abnormalities. Frequent PVCs. HPI This is a 68-year-old male with a history of pacemaker and recent discharge right emergency department via private vehicle in the setting of central chest pain. Patient reports that this occurred this morning after walking around the grocery store. He said that it was aching deep sensation and traveled into his back. It is resolved now. He did not lose consciousness nor does he feel short of breath. He does feel slightly lightheaded. He denies routine tobacco, ethanol, and illicits. No recent vomiting. Exam General: Elderly-appearing in no acute distress speaking in complete sentences. Head: Normocephalic, atraumatic. Eye: Extraocular eye movements intact. No conjunctival injection. No scleral icterus. Ear, nose, mouth, throat: Grossly normal inspection. Normal voice, handling secretions normally. Neck: Trachea midline. Cardiovascular: Well-perfused distal extremities. Regular rate Respiratory: Nonlabored respiration. Clear lungs bilaterally Gastrointestinal: Nondistended abdomen. Musculoskeletal: No significant lower extremity pitting edema. Moving all 4 extremities spontaneously. Skin: Normal for age and race, grossly normal temperature and turgor. No acute rash. Neurologic: Alert and appropriate, no apparent acute deficits. Psychiatric: Mood and manner are appropriate. Grooming and personal hygiene are appropriate. Related Data Home Medications ?Medication ?Instructions ?Recorded ?Confirmed furosemide 40 mg tablet (Lasix) 40 mg PO DAILY #30 tabs 05/24/24 05/28/24 losartan 25 mg tablet 25 mg PO DAILY #30 tabs 05/24/24 05/28/24 metoprolol succinate 25 mg 12.5 mg (1/2 x 25 mg) PO DAILY #10 05/28/24 tablet,extended release 24 hr tabs Previous Rx's ?Medication ?Instructions ?Recorded furosemide 40 mg tablet (Lasix) 40 mg PO DAILY #30 tabs 05/24/24 losartan 25 mg tablet 25 mg PO DAILY #30 tabs 05/24/24 metoprolol succinate 25 mg 12.5 mg (1/2 x 25 mg) PO DAILY #10 05/28/24 tablet,extended release 24 hr tabs Allergies Allergy/AdvReac Type Severity Reaction Status Date / Time No Known Allergies Allergy Unverified 05/28/24 12:33 General Stated Complaint: Chest Pain MARCELLE: 2 Course Vital Signs Vital signs: Vital Signs Temperature 36.9 C 05/28/24 12:28 Pulse 83 05/28/24 12:28 Respiratory Rate 16 05/28/24 12:28 Pulse Oximetry 98 05/28/24 12:28 Temperature 36.9 C 05/28/24 12:28 Pulse 83 05/28/24 12:28 Respiratory Rate 16 05/28/24 12:28 Pulse Oximetry 98 05/28/24 12:28 Pain Level 0 05/28/24 12:28 Medical Decision Making Quality:SDOH Health Related Social Needs: No Data to Display PFSH All Active Problems (Updated 05/28/24 @ 16:32 by Eliezer Floyd MD) Chest pain, unspecified (Acute) Heart failure (Acute) Chest pressure (Acute) Cellulitis (Acute) Pacemaker at end of battery life (Acute) Chest pain (Acute) Elevated TSH (Chronic) Acute exacerbation of chronic low back pain (Acute) Chronic low back pain (Chronic) Sick sinus syndrome (Chronic 06/13/13) Severe back pain (Acute) Radiculopathy due to lumbar intervertebral disc disorder (Acute) Medical History (Updated 05/28/24 @ 16:32 by Eliezer Floyd MD) HTN (hypertension) CHF (congestive heart failure) Near syncope Bigeminal rhythm Hypomagnesemia Surgical History (Updated 05/27/24 @ 00:02 by JOEY THAKKAR) Status post placement of cardiac pacemaker (06/14/13) Social History Smoking/Tobacco Use Status: Former Tobacco Use Smoking risk assessment performed?: Yes Alcohol Intake: former Drug use: Never Substance use type: does not use Housing: house Do you feel safe at home: Yes Do you feel safe in your relationship?: Yes
[2024-05-28] MEDS: Aspirin 81 MG CHEW 324 MG CH (12:40)
[2024-05-28 12:54] LABS: Abs Immature Grans 0.02 10^3/uL (0.0-0.06); Absolute Basophil Count 0.12 10^3/uL (0.0-0.2); Absolute Eosinophil Count 0.08 10^3/uL (0.0-0.7); Absolute Lymphocyte Count 1.42 10^3/uL (1.2-3.4); Absolute Monocyte Count 0.54 10^3/uL (0.1-0.8); Absolute Neutrophil Count 5.13 10^3/uL (1.2-6.7); Basophils % 1.6 %; Eosinophils % 1.1 %; HCT 49.9 % (40.0-50.0); HGB 16.5 g/dL (13.5-17.5); Immature Grans % 0.3 %; Lymphocytes % 19.4 %; MCH 33.1 pg (27.0-33.0); MCHC 33.1 % (32.0-36.0); MCV 100 fL (80-95); MPV 11.3 fL (8.0-11.0); Monocytes % 7.4 %; Neutrophils % 70.2 %; Platelet Count 229 10^3/uL (130-400); RBC 4.99 10^6/uL (4.36-5.78); RDW 12.4 % (11.8-14.1); RDW-SD 45.6 fL; WBC 7.31 10^3/uL (4.4-10.8)
[2024-05-28 13:05] LABS: INR 1.1 (0.9-1.1); Prothrombin Time 10.7 sec (9.1-11.1)
[2024-05-28 13:20] LABS: ALT 44 U/L (16-63); AST 39 U/L (15-37); Albumin 3.9 g/dL (3.4-5.0); Alkaline Phosphatase 104 U/L (46-116); Anion Gap 7.9 mmol/L (3-11); BUN 29 mg/dL (7-18); Bilirubin, Total 0.78 mg/dL (0.2-1.0); CO2 33.1 mmol/L (21.0-32.0); CREATININE 1.6 mg/dL (0.70-1.30); Calcium 9.4 mg/dL (8.5-10.1); Chloride 104 mmol/L (98-107); Estimated GFR 46.06 (mL/min/1.73m2); Glucose 111 mg/dL (74-106); Magnesium 1.8 mg/dL (1.8-2.4); NT-proBNP 663 pg/mL (<300); Potassium 4.4 mmol/L (3.5-5.1); Sodium 145 mmol/L (136-145); Total Protein 7.8 g/dL (6.4-8.2); Troponin I 32 ng/L (<or=76)
--- NOTE | 2024-05-28 14:12 | DI.VRAD_ITS ---
PROCEDURE INFORMATION: Exam: XR Chest Exam date and time: 05/28/2024 1:38 PM Age: 68 years old Clinical indication: Other: Chest pain TECHNIQUE: Imaging protocol: Radiologic exam of the chest. Views: 1 view. COMPARISON: CR XR CHEST 2V PA LATERAL 05/23/2024 5:53 PM FINDINGS: Tubes, catheters and devices: Right subclavian cardiac pacemaker. Lungs: Lungs are clear with no infiltrate or nodule. Pleural spaces: Unremarkable. No pleural effusion. No pneumothorax. Heart/Mediastinum: Upper normal heart size. Bones/joints: Unremarkable. IMPRESSION: No active cardiopulmonary disease. Dictated and Authenticated by: Martin Benedict MD. Orderin Everett Martins MD
[2024-05-28 14:18] LABS: Troponin I 30 ng/L (<or=76)
[2024-05-28 16:18] LABS: Troponin I 26 ng/L (<or=76)
== END 2024-05-28 16:51 | disposition home or self-care (01) ==
PROVIDERS: Emergency Provider Emergency Medicine; PCP Student in an Organized Health Care Education/Training Program
DX: R07.9 Chest pain, unspecified (principal); I10 Essential (primary) hypertension; I44.7 Left bundle-branch block, unspecified; Z95.0 Presence of cardiac pacemaker
CPT/HCPCS: 36415; 80053; 93005; 99285; 71045; 83735; 83880; 84484; 85025; 85610; 93010; 99284

== ENCOUNTER 2024-09-19 11:25 | Emergency (ER) | payer MEDICARE, SELFPAY ==
[2024-09-19 11:31] VITALS: BP 110/67; PULSE 51; RESP 18; TEMP 36.7; O2SAT 93
--- NOTE | 2024-09-19 11:45 | DI.RAD_ITS ---
Exam(s) XR FOOT RT COMPLETE EXAM: XR FOOT RT COMPLETE CLINICAL HISTORY: heel injury. TECHNIQUE: 2D digital imaging was performed. Three views. COMPARISON: No exams were available for comparison FINDINGS: BONES: No acute fracture is present. No bony destructive lesion is seen. Accessory navicular. Tiny heel spurs. JOINTS: No dislocation present. SOFT TISSUE: Soft tissue swelling adjacent to posterior calcaneus IMPRESSION: No acute bony abnormality. Soft tissue swelling posterior calcaneus. Clinical correlation recommended. DATA REPOSITORY: RADIATION DOSE DELIVERED:
--- NOTE | 2024-09-19 11:55 | ED.GENADUL_ITS ---
Discharge Plan Disposition Patient Disposition: Home Discharge Details Clinical Impression: Strain of right Achilles tendon Primary Care Provider: Deon Degroot ED Provider: Aocsta Pringle Home Meds and New Rx's Prescriptions: No Action losartan 25 mg tablet 25 mg PO DAILY Qty: 30 0RF furosemide [Lasix] 40 mg tablet 40 mg PO DAILY Qty: 30 0RF metoprolol succinate 25 mg tablet extended release 24 hr 12.5 mg PO DAILY Qty: 10 0RF Discharge Instructions Instructions: Achilles tendon injury, Muscle Strain ED Additional Instructions: You were seen in the emergency department for the pain at your heel where Achilles tendon inserts, this is likely a partial tear or strain of the Achilles tendon causing heel pain with weightbearing, please remain in the walking boot we have provided, use crutches, do not weight-bear to the point of significant pain, in 1 to 2 weeks test out a couple steps at home with the boot on if this does not hurt you can just use the boot without crutches, after that begin testing just a few steps without the boot on, if you have pain without the boot on you can discontinue it, follow-up with orthopedics for persistent pain lasting longer than 2 weeks, return to the emergency department for any sign of tendon rupture or other emergent pathology, take regular doses of Tylenol and ibuprofen as needed for pain. Referrals: [facility] [Provider Group] Deon Degroot [Primary Care Provider, Medicine] Discharge Data Discharge Date/Time-TO BE ENTERED AT DEPARTURE: 09/19/24 13:20 HPI General Date/Time Provider Initiated Documentation: 09/19/24 11:45 . HPI Narrative: 69 year-old male presents to ED today by POV/ambulating with a chief complaint of R heel pain after hitting his foot on a rocker-rail of a truck with onset a couple days ago. Quality described as painful at the back of the heel, no radiation to numbness/tingling, gross swelling/deformity, inability to weight- bear but it is very painful with WB, bruising. Severity is described as moderate. Palliating factors include nothing specific. Provoking factors include weight-bearing. Patient not anticoagulated. Related Data Home Medications ?Medication ?Instructions ?Recorded ?Confirmed furosemide 40 mg tablet (Lasix) 40 mg PO DAILY #30 tab s 05/24/24 09/19/24 losartan 25 mg tablet 25 mg PO DAILY #30 tabs 05/0109/19/24 metoprolol succinate 25 mg 12.5 mg (1/2 x 25 mg) PO DA TREVOR #10 05/28/24 09/19/24 tablet,extended release 24 hr tabs Previous Rx's ?Medication ?Instructions ?Recorded furosemide 40 mg tablet (Lasix) 40 mg PO DAILY #30 tab s 05/24/24 losartan 25 mg tablet 25 mg PO DAILY #30 tabs 05/01 08/21 metoprolol succinate 25 mg 12.5 mg (1/2 x 25 mg) PO DA TERVOR #10 05/28/24 tablet,extended release 24 hr tabs Allergies Allergy/AdvReac Type Severity Reaction Status Date / Time No Known Allergies Allergy Verified 09/19/24 11:31 General Stated Complaint: Orthopedic MARCELLE: 4 Review of Systems All systems reviewed & are unremarkable except as noted in HPI and below Exam Narrative Exam Narrative: GENERAL APPEARANCE: Well-nourished, non-toxic, awake and alert, atraumatic, no acute distress. SKIN: Warm, pink, dry, intact, without rashes/lesions/ulcerations. HEAD: Normocephalic, atraumatic, normal hair distribution for gender/age. EYES: Normal conjunctiva, no exudates on lids/lashes. ENT: Nares patent, no circumoral cyanosis, no facial swelling NECK: Supple, trachea midline, painless cervical ROM. LUNGS/CHEST: Non-labored respirations, normal A/P diameter, symmetrical expansion, no chest wall deformity HEART (CV/PV): No peripheral edema, no JVD. ABDOMEN: Soft, non-distended, no guarding. MSK: Normal ROM, no swelling/deformity to bilateral UEs or LEs, moving all extremities without weakness, no cyanosis, spine midline without tenderness, nor mal curvature, tenderness at achilles insertion of R foot, mild swelling to posterior heel, no crepitus, ROM intact, thompsons test negative for achilles rupture NEURO: Mental Status AAOx4 - alert to person, place, time, events No facial droop, no forehead involvement. Motor: No focal weakness - strength 5/5 in bilateral UEs and LEs, proximal and distal, symmetric. Sensory: sensation intact to light touch globally. Gait antalgic PSYCH: euthymic, cooperative, pleasant, appropriate speech Course Vital Signs Vital signs: Vital Signs Temperature 36.7 C 09/19/24 11:31 Pulse 51 L 09/19/24 11:31 Respiratory Rate 18 09/19/24 11:31 Blood Pressure 110/67 09/19/24 11:31 Pulse Oximetry 93 09/19/24 11:31 Temperature 36.7 C 09/19/24 11:31 Temperature Source Oral 09/19/24 11:31 Pulse 51 L 09/19/24 11:31 Respiratory Rate 18 09/19/24 11:31 Blood Pressure 110/67 09/19/24 11:31 Blood Pressure Position Sitting 09/19/24 11:31 Pulse Oximetry 93 09/19/24 11:31 Oxygen Delivery Method Room Air 09/19/24 11:31 Oxygen Flow Rate 0 09/19/24 11:31 Medical Decision Making This dictation utilizes [id number] dictation software and may contain unedited grammatical errors. 69 year-old male presents to ED today by POV/ambulating with a chief complaint of R heel pain after hitting his foot on a rocker-rail of a truck with onset a couple days ago. Quality described as painful at the back of the heel, no radiation to numbness/tingling, gross swelling/deformity, inability to weight- bear but it is very painful with WB, bruising. Severity is described as moderate. Palliating factors include nothing specific. Provoking factors include weight-bearing. Patients' medical history: noncontributory. Family and social history: noncontributory. Pertinent exam findings / vital signs include tenderness at achilles insertion of R foot, mild swelling to posterior heel, no crepitus, ROM intact, thompsons test negative for achilles rupture. Differential / pathologies of concern include strain, sprain, fracture. Diagnostic studies of: -XR R Foot - no acute fracture seen. Interventions of: -Short Boot & Crutches, 2-3 weeks. ED Course/Assessment/Plan: 69-year-old male hit his right heel on a truck the other day and is having significant pain at the heel, his Achilles is intact but his area of pain is right at the calcaneal insertion of the Achilles, suspect partial tear or strain of the Achilles tendon, no fracture seen on x-ray, provided short boot to help with immobilization as well as crutches for pain with weightbearing, stressed follow-up with orthopedics for any complications, strict return criteria for any signs of neurovascular compromise. Findings not consistent with tendon rupture, fracture. Disposition of Strain of Right Achilles Tendon. Patient verbalized understanding of the plan and return to ED criteria and engaged in shared decision making. Medical Records Medical records reviewed: Yes I reviewed the patient's medical records. Imaging Data Radiologic Study: Attestation: I personally reviewed and interpreted this imaging study as follows: Imaging: X-Ray Radiologist's impression: EXAM: XR FOOT RT COMPLETE CLINICAL HISTORY: heel injury. TECHNIQUE: 2D digital imaging was performed. Three views. COMPARISON: No exams were available for comparison FINDINGS: BONES: No acute fracture is present. No bony destructive lesion is seen. Accessory navicular. Tiny heel spurs. JOINTS: No dislocation present. SOFT TISSUE: Soft tissue swelling adjacent to posterior calcaneus IMPRESSION: No acute bony abnormality. Soft tissue swelling posterior calcaneus. Clinical correlation recommended. PFSH All Active Problems (Updated 09/19/24 @ 12:41 by NYLA Elena) Strain of right Achilles tendon (Acute) Heart failure (Acute) Chest pressure (Acute) Cellulitis (Acute) Pacemaker at end of battery life (Acute) Elevated TSH (Chronic) Acute exacerbation of chronic low back pain (Acute) Chronic low back pain (Chronic) Sick sinus syndrome (Chronic 06/13/13) Severe back pain (Acute) Radiculopathy due to lumbar intervertebral disc disorder (Acute) Medical History (Updated 09/19/24 @ 12:41 by NYLA Elena) HTN (hypertension) CHF (congestive heart failure) Near syncope Bigeminal rhythm Hypomagnesemia Surgical History (Updated 05/27/24 @ 00:02 by JOEY THAKKAR) Status post placement of cardiac pacemaker (06/14/13) Social History Smoking/Tobacco Use Status: Former Tobacco Use Smoking risk assessment performed?: Yes Alcohol Intake: former Drug use: Never Substance use type: does not use Housing: house Do you feel safe at home: Yes Do you feel safe in your relationship?: Yes
[2024-09-19 13:04] VITALS: BP 118/53; PULSE 59; RESP 16; O2SAT 96
== END 2024-09-19 13:20 | disposition home or self-care (01) ==
PROVIDERS: Emergency Provider Physician Assistant; PCP Student in an Organized Health Care Education/Training Program
DX: S86.011A Strain of right Achilles tendon, initial encounter (principal); W22.8XXA Striking against or struck by other objects, initial encounter
CPT/HCPCS: 99283 ×2; 29515; 73630